=== PATIENT | male | born 1960 | race Caucasian/White ===

== ENCOUNTER 2023-01-23 10:31 | Outpatient (AMB) | payer BC, SELFPAY ==
--- OUTSIDE RECORDS SUMMARY | 2023-01-23 10:32 | XMS_ITS | Continuity of Care Document ---
Author Name Unknown Organization [facility] ter Address [address] [place] [id number]- Care Team Providers Care Grocery Specialist Name Role Phone Jenni Dixon Primary Care Physician [place] [facility] [place] - 06/22/[address] [address]- Discharge Disposition: A-D/C Walkout Attending Physician: Not on Staff, Attending MD Admitting Physician: Not on Staff, Admitting MD Referring Physician: Not on Staff, Referring MD Allergies, Adverse Reactions, Alerts Substance Reaction Severity Status Latex rash Persistent Moderate Active Lactose Active Immunizations Given and Recorded Vaccine Date Status Refusal Reason pneumococcal 23-valent vaccine 11/10/17 Given Medications atorvastatin 80 mg oral tablet 1 tablet = 80 mg, By Mouth, Daily at bedtime, # 30 tablet, 0 Refills, Maintenance, 07/01/21 15:29:00 EDT, Tablet, [facility], Partial fill upon patient request if the prescription is for a schedule II opioid drug., 180, cm, 07/01/21 15:1... Start Date: 07/01/21 Status: Ordered BuPROpion = 300 mg, By Mouth, Daily, 0 Refills, Maintenance, 06/30/21 10:50:00 EDT, Partial fill upon patientrequest if the prescription is for a schedule II opioid drug. Start Date: 06/30/21 Status: Ordered Colace sodium 100 mg oral capsule 100 mg, 1, capsule, By Mouth, 2 times a day, PRN, with plenty of water, # 60 capsule, Refills 1, Tot. Refills 1, Maintenance, for constipation, 03/01/18 12:40:55 EST, Print Requisition Start Date: 03/01/18 Status: Ordered cyanocobalamin 100 mcg oral tablet 100 mcg, 1, tablet, By Mouth, Daily, Refills 0, Maintenance, 08/28/19 15:56:00 EDT Start Date: 08/28/19 Status: Ordered dicyclomine 10 mg oral capsule 1 capsule = 10 mg, By Mouth, 3 times a day after meals, # 28 capsule, 0 Refills, Maintenance, 11/15/18 11:54:24 EDT, Capsule Start Date: 11/15/18 Stop Date: 11/22/18 Status: Ordered ferrous sulfate 325 mg oral enteric coated tablet 325 mg, 1, tablet, By Mouth, Daily, # 30 tablet, Refills 0, Tot. Refills 0, Maintenance, 07/01/21 15:34:00 EDT, Route to Pharmacy Electronically, [facility], Partial fill upon patient request if the prescription is for a schedule II opio... Start Date: 07/01/21 Status: Ordered folic acid 1 mg oral tablet 1 mg, 1, tablet, By Mouth, Daily, # 30 tablet, Refills 0, Tot. Refills 0, Maintenance, 11/17/17 10:03:25 EDT, Do Not Route Start Date: 11/17/17 Stop Date: 12/17/17 Status: Ordered Iron 100 Plus 1 tablet, By Mouth, Daily, 0 Refills, Maintenance, 02/27/18 13:06:45 EST Start Date: 02/27/18 Status: Ordered losartan 25 mg oral tablet 25 mg, 1, tablet, By Mouth, Daily, # 30 tablet, Refills 0, Tot. Refills 0, Maintenance, 07/01/21 15:29:00 EDT, Route to Pharmacy Electronically, [facility], Partial fill upon patient request if the prescription is for a schedule II opioi... Start Date: 07/01/21 Status: Ordered midodrine 2.5 mg oral tablet See Instructions, 1 tablet By Mouth 2 times a day after waking and 8 hours later in the afternoon. Do not lay down for any extended time with medication. If PM nap needed do no take second dose., # 60 tablet, Refills 0, Tot. Refills 0, Maintenance, 04... Start Date: 07/01/21 Status: Ordered nitroglycerin 0.3 mg/hr transdermal film, extended release 1 patch, Topically, Daily at bedtime, Remove upon waking, maintain a nitrate- free interval of 10 to12 hours, # 30 patch, 0 Refills, Maintenance, 07/01/21 15:33:00 EDT, Patch, [facility], Partial fill upon patient request if the prescrip... Start Date: 07/01/21 Status: Ordered Protonix 40 mg oral delayed release tablet 1 tablet = 40 mg, By Mouth, 2 times a day, # 60 tablet, 0 Refills, Maintenance, 11/17/17 10:03:35 EDT, EC Tablet Start Date: 11/17/17 Stop Date: 12/17/17 Status: Ordered rOPINIRole 1 mg oral tablet 1 tablet = 1 mg, By Mouth, Daily at bedtime, # 30 tablet, 0 Refills, Maintenance, 07/01/21 15:30:00EDT, Tablet, [facility], Partial fill upon patient request if the prescription is fora schedule II opioid drug., 180, cm, 07/01/21 15:10... Start Date: 07/01/21 Status: Ordered Problem List Condition Confirmation Course Effective Dates Status H ealth Status Informant Diverticulitis 1 Confirmed Active Inguinal hernia Confirmed Active Lactose intolerance Confirmed Active Obese class II Confirmed Active 1two episodes Vital Signs Most recent to oldest [Reference Range]: 1 2 3 Height 180 cm (06/22/22 10:29 AM) Oxygen Saturation [94-100 %] 97 % (06/22/22 2:01 PM) 100 % (06/22/22 11:53 AM) 98 % (06/22/22 9:59 AM) Pulse Rate [55-90 bpm] 86 bpm (06/22/22 2:01 PM) 88 bpm (06/22/22 11:53 AM) 96 bpm *H* (06/22/22 9:59 AM) Blood Pressure [90-138/55-84 mm Hg] 130/66mm Hg (06/22/22 2:01 PM) 111/65mm Hg (06/22/22 11:53 AM) 143/70mm Hg *H* (06/22/22 9:59 AM) Respiratory Rate [16-30 br/min] 16 br/min (06/22/22 2:01 PM) 16 br/min (06/22/22 11:53 AM) 18 br/min (06/22/22 9:59 AM) Temperature [96.8-100.4 DegF] 97.9 DegF (06/22/22 11:53 AM) 99.3 DegF (06/22/22 9:59 AM) Mode of Delivery (Oxygen) Room air (06/22/22 2:01 PM) Room air (06/22/22 11:53 AM) Room air (06/22/22 9:59 AM) Blood pressure sites Arm, left (06/22/22 2:01 PM) Arm, left (06/22/22 11:53 AM) Arm, left (06/22/22 9:59 AM) Temperature Route Oral (06/22/22 11:53 AM) Oral (06/22/22 9:59 AM) Social History Social History Type Response Smoking Status Never (less than 100 in lifetime) entered on: 02/27/18 Sex Patient Care team information Care Team Personnel Name: Lolita Stout RN Position: [facility] RN Member Role: Primary Care Nurse Name: Jazlyn Fu RN Position: [facility] SN RN Member Role: Primary Care Nurse Name: Hannah De La Vega RN Position: [facility] RN Member Role: Primary Care Nurse Name: Kate Muhammad RN Position: [facility] RN Member Role: Primary Care Nurse Name: Marie Sosa RN Position: [facility] RN Member Role: Primary Care Nurse Name: Courtney Sullivan RN Position: [facility] SN RN Member Role: Primary Care Nurse Name: Dora Salcedo RN Position: [facility] RN Member Role: Primary Care Nurse Name: Carolyn Brice RN Position: [facility] RN Member Role: Primary Care Nurse Name: Jenni Dixon Position: Reference Physician Member Role: PCP Address: Address: [address] [place] [address] Name: Karol Mary RN Position: [facility] Onco RN Member Role: Primary Care Nurse Name: Raven Clark RN Position: [facility] Hospital Director Treasurer Member Role: Primary Care Nurse Care Team Related Persons Name: LONNIE CASILLAS Address: home [address] [place] [address] Name: MARIE ADAIR Address: home [address] [place] [id number]
--- OUTSIDE RECORDS SUMMARY | 2023-01-23 10:32 | XMS_ITS | Continuity of Care Document ---
Author Name Unknown Organization [facility] ter Address [address] [place] [id number]- Care Team Providers Care Senior Dentist Name Role Phone Rosa TIM, Jenni Frausto Primary Care Physician Encounter [facility] [place] Date(s): 07/04/22 - 10/05/[address] [address] Attending Physician: Jd Valdez Jr, MD Admitting Physician: Jd Valdez Jr, MD Allergies, Adverse Reactions, Alerts Substance Reaction Severity Status Latex rash Persistent Moderate Active Lactose Active Immunizations Given and Recorded Vaccine Date Status Refusal Reason SARS-CoV-2 (COVID-19) mRNA-1273 vaccine 02/09/21 R ecorded SARS-CoV-2 (COVID-19) mRNA-1273 vaccine 08/03/20 R ecorded SARS-CoV-2 (COVID-19) mRNA-1273 vaccine 07/06/20 R ecorded pneumococcal 23-valent vaccine 11/10/17 Given Medications BuPROpion = 300 mg, By Mouth, Daily, 0 Refills, Maintenance, 06/30/21 10:50:00 EDT, Partial fill upon patientrequest if the prescription is for a schedule II opioid drug. Start Date: 06/30/21 Status: Ordered Carafate 1 gm oral tablet 2 Gm, 2, tablet, By Mouth, 3 times a day before meals and bedtime, # 240 tablet, Refills 0, Tot. Refills 0, Maintenance, 07/06/22 13:18:00 EDT, Do Not Route, Partial fill upon patient request if the prescription is for a schedule II opioid drug. Start Date: 07/06/22 Stop Date: 08/05/22 Status: Ordered ferrous sulfate 325 mg oral enteric coated tablet 325 mg, 1, tablet, By Mouth, Daily, # 30 tablet, Refills 0, Tot. Refills 0, Maintenance, 07/01/21 15:34:00 EDT, Route to Pharmacy Electronically, [facility], Partial fill upon patient [...] 13:06:45 EST Start Date: 02/27/18 Status: Ordered lactulose 10 gm/15 ml oral syrup 30 mL = 20 Gm, By Mouth, 2 times a day, Hold if loose bowel movement more than 3 times and resume next day, 0 Refills, Maintenance, 07/06/22 13:04:00 EDT, Syrup, Partial fill upon patient request if the prescription is for a schedule II opioid drug. Start Date: 07/06/22 Status: Ordered Lasix 20 mg oral tablet 1, capsule, By Mouth, 2 times a day, # 60 capsule, Refills 0, Tot. Refills 0, Soft Stop, 07/06/22 13:10:00 EDT, Do Not Route, Partial fill upon patient request if the prescription is for a schedule II opioid drug. Start Date: 07/06/22 Stop Date: 08/05/22 Status: Ordered nitroglycerin 0.3 mg/hr transdermal film, extended release 1 patch, Topically, Daily at bedtime, Remove upon waking, maintain a nitrate- free interval of 10 to12 hours, # 30 patch, 0 Refills, Maintenance, 07/01/21 15:33:00 EDT, Patch, [facility], Partial fill upon patient request if the prescrip... Start Date: 07/01/21 Status: Ordered Phos-NaK Oral Powder 1 pack/packet, By Mouth, 2 times a day, 0 Refills, Maintenance, 07/06/22 13:03:00 EDT, Oral Powder,Partial fill upon patient request if the prescription is for a schedule II opioid drug. Start Date: 07/06/22 Stop Date: 07/09/22 Status: Ordered Protonix 40 mg oral delayed release tablet 1 tablet = 40 mg, By Mouth, 2 times a day, # 60 tablet, 0 Refills, Maintenance, 11/17/17 10:03:35 EDT, EC Tablet Start Date: 11/17/17 Stop Date: 12/17/17 Status: Ordered rifAXIMin 550 mg oral tablet 1 tablet = 550 mg, By Mouth, 2 times a day, 0 Refills, Maintenance, 07/06/22 13:03:00 EDT, Tablet, Partial fill upon patient request if the prescription is for a schedule II opioid drug. Start Date: 07/06/22 Stop Date: 07/13/22 Status: Ordered rOPINIRole 1 mg oral tablet 1 tablet = 1 mg, By Mouth, Daily at bedtime, # 30 tablet, 0 Refills, Maintenance, 07/01/21 15:30:00EDT, Tablet, [facility], Partial fill upon patient request if the prescription is fora schedule II opioid drug., 180, cm, 07/01/21 15:10... Start Date: 07/01/21 Status: Ordered spironolactone 25 mg oral tablet 50 mg, 2, tablet, By Mouth, Daily, Refills 0, Maintenance, 07/06/22 13:03:00 EDT, Partial fill uponpatient request if the prescription is for a schedule II opioid drug. Start Date: 07/06/22 Status: Ordered thiamine 100 mg oral tablet 100 mg, 1, tablet, By Mouth, Daily, Refills 0, Maintenance, 07/06/22 13:05:00 EDT, Partial fill upon patient request if the prescription is for a schedule II opioid drug. Start Date: 07/06/22 Stop Date: 07/20/22 Status: Ordered Problem List Condition Confirmation Course Effective Dates Status H ealth Status Informant Diverticulitis 1 Confirmed Active Inguinal hernia Confirmed Active Lactose intolerance Confirmed Active Obese class II Confirmed Active 1two episodes Social History Social History Type Response Smoking Status Never (less than 100 in lifetime) entered on: 02/27/18 Sex Patient Care team information Care Team Personnel Name: Lolita Stout RN Position: [facility] RN Member Role: Primary Care Nurse Name: Jazlyn Fu RN Position: [facility] SN RN Member Role: Primary Care Nurse Name: Hannah De La Vega RN Position: [facility] RN Member Role: Primary Care Nurse Name: Kalpana Ferrara RN Position: [facility] RN Member Role: Primary Care Nurse Name: Kate Muhammad RN Position: [facility] RN Member Role: Primary Care Nurse Name: Enoch Garg RN Position: [facility] RN Member Role: Primary Care Nurse Name: Rima López RN Position: [facility] RN Member Role: Primary Care Nurse Name: Brigid Goss RN Position: [facility] RN Member Role: Primary Care Nurse Name: Ashley Kebede RN Position: [facility] RN Member Role: Primary Care Nurse Name: Courtney Sullivan RN Position: [facility] SN RN Member Role: Primary Care Nurse Name: Wilfrido Fraga RN Position: [facility] RN Member Role: Primary Care Nurse Name: Dora Salcedo RN Position: [facility] RN Member Role: Primary Care Nurse Name: Carolyn Brice RN Position: [facility] RN Member Role: Primary Care Nurse Name: Darlin Geller RN Position: [facility] RN Member Role: Primary Care Nurse Name: Jenni Dixon Position: Reference Physician Member Role: PCP Address: Address: [address] [place] [id number]- Name: Kaorl Mary RN Position: [facility] Onco RN Member Role: Primary Care Nurse Name: Raven Clark RN Position: [facility] Procurement Forester Member Role: Primary Care Nurse Care Team Related Persons Name: LONNIE CASILLAS Address: home [address] [place] [address] Name: ENOCH ADAIR Address: [address] [place] [address]
--- OUTSIDE RECORDS SUMMARY | 2023-01-23 10:32 | XMS_ITS | Continuity of Care Document ---
Author Name Unknown Organization [facility] ter Address [address] [place] [id number]- Care Team Providers Care Embedded Developer Name Role Phone Sreekanth DOUGLASS, Mando Camargo Primary Care Physician Encounter [place] Date(s): 04/28/19 - 04/28/[address] [address]- [facility] Attending Physician: Bruce Wills MD Allergies, Adverse Reactions, Alerts Substance Reaction Severity Status Latex rash Persistent Moderate Active Immunizations Given and Recorded Vaccine Date Status Refusal Reason pneumococcal 23-valent vaccine 11/10/17 Given Medications B 100 Complex 1 tablet, By Mouth, Daily, 0 Refills, Maintenance, 02/27/18 13:06:41 EST Start Date: 02/27/18 Status: Ordered B-12 0 Refills, Maintenance, 02/27/18 13:06:52 EST Start Date: 02/27/18 Status: Ordered calcium (as carbonate) 500 mg oral tablet, chewable 1 tablet = 500 mg, Daily, 0 Refills, Maintenance, 02/27/18 13:07:06 EST Start Date: 02/27/18 Status: Ordered Colace sodium 100 mg oral capsule 100 mg, 1, capsule, By Mouth, 2 times a day, PRN, with plenty of water, # 60 capsule, Refills 1, Tot. Refills 1, Maintenance, for constipation, 03/01/18 12:40:55 EST, Print Requisition Start Date: 03/01/18 Status: Ordered dicyclomine 10 mg oral capsule 1 capsule = 10 mg, By Mouth, 3 times a day after meals, # 28 capsule, 0 Refills, Maintenance, 11/15/18 11:54:24 EDT, Capsule Start Date: 8/23/19 Stop Date: 11/22/18 Status: Ordered folic acid 1 mg oral tablet 1 mg, 1, tablet, By Mouth, Daily, # 30 tablet, Refills 0, Tot. Refills 0, Maintenance, 11/17/17 10:03:25 EDT, Do Not Route Start Date: 11/17/17 Stop Date: 12/17/17 Status: Ordered Iron 100 Plus 1 tablet, By Mouth, Daily, 0 Refills, Maintenance, 02/27/18 13:06:45 EST Start Date: 02/27/18 Status: Ordered multivitamin Multiple Vitamins oral tablet 1 tablet, By Mouth, Daily, # 30 tablet, 0 Refills, Maintenance, 11/17/17 10:03:32 EDT, Tablet Start Date: 11/17/17 Stop Date: 12/17/17 Status: Ordered Protonix 40 mg oral delayed release tablet 1 tablet = 40 mg, By Mouth, 2 times a day, # 60 tablet, 0 Refills, Maintenance, 11/17/17 10:03:35 EDT, EC Tablet Start Date: 11/17/17 Stop Date: 12/17/17 Status: Ordered Sertraline = 100 mg, By Mouth, Daily, 0 Refills, Maintenance, 02/27/18 13:06:20 EST Start Date: 02/27/18 Status: Ordered Problem List Condition Effective Dates Status Health Status Inform ant Diverticulitis(Confirmed) 1 Active Inguinal hernia(Confirmed) Active Lactose intolerance(Confirmed) Active 1two episodes Social History Social History Type Response Smoking Status Never (less than 100 in lifetime) entered on: 02/27/18 Sex
--- OUTSIDE RECORDS SUMMARY | 2023-01-23 10:32 | XMS_ITS | Continuity of Care Document ---
Author Name Unknown Organization [facility] ter Address [address] [place] [id number]- Care Team Providers Care Power And Recovery Superintendent Name Role Phone Brianna DOUGLASS, Emilie Otoole Primary Care Physician [place] [facility] [place](s[place] 08/26/19 - 08/28/[address] [address]- [place] Encounter Diagnosis Compression fracture of vertebra(Final) - 08/26/19 Discharge Disposition: A-D/C Home Attending Physician: Clifton Foreman MD Admitting Physician: Lorena Melgar MD Referring Physician: Not on Staff, Referring MD Allergies, Adverse Reactions, Alerts Substance Reaction Severity Status Latex rash Persistent Moderate Active Immunizations Given and Recorded Vaccine Date Status Refusal Reason pneumococcal 23-valent vaccine 11/10/17 Given Medications calcium (as carbonate) 500 mg oral tablet, [...] Date: 11/15/18 Stop Date: 11/22/18 Status: Ordered folic acid 1 mg oral tablet 1 mg, 1, tablet, By Mouth, Daily, # 30 tablet, Refills 0, Tot. Refills 0, Maintenance, 11/17/17 10:03:25 EDT, Do Not Route Start Date: 11/17/17 Stop Date: 12/17/17 Status: Ordered Iron 100 Plus 1 tablet, By Mouth, Daily, 0 Refills, Maintenance, 02/27/18 13:06:45 EST Start Date: 02/27/18 Status: Ordered Protonix 40 mg oral delayed release tablet 1 tablet = 40 mg, By Mouth, 2 times a day, # 60 tablet, 0 Refills, Maintenance, 11/17/17 10:03:35 EDT, EC Tablet Start Date: 11/17/17 Stop Date: 12/17/17 Status: Ordered Sertraline = 100 mg, By Mouth, Daily, 0 Refills, Maintenance, 02/27/18 13:06:20 EST Start Date: 02/27/18 Status: Ordered Vitamin D [address]35[address] iu oral capsule 50,000 International_Units, 1, capsule, By Mouth, Every week, # 12 capsule, Refills 0, Tot. Refills0, Maintenance, 08/28/19 15:57:00 EDT, Route to Pharmacy Electronically, [id number], 180.3,cm, 08/28/19 15:15:00 EDT, Height, 108.18, kg, 06/0... Start Date: 08/28/19 Stop Date: 11/20/19 Status: Ordered Problem List Condition Effective Dates Status Health Status Inform ant Diverticulitis(Confirmed) 1 Active Inguinal hernia(Confirmed) Active Lactose intolerance(Confirmed) Active 1two episodes Results Radiology Reports * Exam Date Time Procedure Performing Provider Status 08/26/19 6:25 PM Hand Min 3 Views Right Justin Conrad (Verified) Notes: (Hand Min 3 Views Right) Reason For Exam: Post-Reduction RESULT: Hand Min 3 Views Right Hand Min 3 Views Right INDICATION: Reason: Post-Reduction; Clinical Question(s): Dislocation; Hx of Present Illness: ? fx 4th finger right hand; Other Objective Findings: Pt fell 2 days ago and injured his 4th finger righthand. Finger is swollen, bruised, c o numbness tip of finger fell 2 days ago and injured his 4th finger right hand. Finger is swollen, bruised, c o numbness tip of finger par } COMPARISON: Plain film of the right hand from this afternoon 3:44 PM FINDINGS: Overlying wrapping material obscures bony detail. There is now probably normal alignment at the fourth finger proximal interphalangeal joint. No fracture is seen. IMPRESSION: Probable successful reduction of the fourth finger proximal interphalangeal joint. Limited evaluation as explained above. WSN: [id number] Ordering Physician: Kaila Riddle Dictated By: Ranjana Egan MD Dictated Date/Time: 08/26/19 6:32 pm Reviewed By: Ranjana Egan MD Signed By: Ranjana Egan MD Signed Date/Time: 08/26/19 6:32 pm Transcribed By: RHYS Transcribed Date/Time: 08/26/19 6:28 pm * Exam Date Time Procedure Performing Provider Status 08/26/19 6:25 PM Elbow Min 3 Views Right Gisel Conrad en; Auth (Verified) Notes: (Elbow Min 3 Views Right) Reason For Exam: Pain RESULT: Elbow Min 3 Views Right Elbow Min 3 Views Right INDICATION: Reason: Pain; Clinical Question(s): Fracture; Hx of Present Illness: ? fx 4th finger right hand; Other Objective Findings: Pt fell 2 days ago and injured his 4th finger right hand. Fingeris swollen, bruised, c o numbness tip of finger fell 2 days ago and injured his 4th finger right hand. Finger is swollen, bruised, c o numbness tip of finger par } COMPARISON: None. FINDINGS: Unremarkable soft tissue. There is no fracture or subluxation. The joint space is maintained. There is degenerative osteophyte at the olecranon triceps tendon insertion site. IMPRESSION: No acute finding. WSN: [id number] Ordering Physician: Kelsie Otero Dictated By: Ranjana Egan MD Dictated Date/Time: 08/26/19 6:28 pm Reviewed By: Ranjana Egan MD Signed By: Ranjana Egan MD Signed Date/Time: 08/26/19 6:28 pm Transcribed By: RHYS Transcribed Date/Time: 08/26/19 6:27 pm * Exam Date Time Procedure Performing Provider Status 08/26/19 3:46 PM Hand Min 3 Views Right Sima Pillai; Anna (Verified) Notes: (Hand Min 3 Views Right) Reason For Exam: with Pain;Trauma RESULT: Hand Min 3 Views Right Hand Min 3 Views Right INDICATION: Status post fall, injuring right fourth finger, which is small swelling, bruise, and numbness at the tip. COMPARISON: None. FINDINGS: Complete dorsal dislocation of proximal fourth interphalangeal joint, with overlap of proximal and middle phalanges by 0.8 cm. This is surrounded by soft tissue swelling. No fractures or bone lesions. No major arthritic changes. IMPRESSION: Complete dorsal dislocation of proximal fourth interphalangeal joint with overlap of proximal and middle phalanges by 0.8 cm. No fracture. Sent preliminary reports to MEETA Hernandez, at 3:54 PM on 08/26/2019. I have personally reviewed the images and I agree with this report. WSN: [id number] Ordering Physician: Susan Perez Dictated By: Shabbir Beltran DO Dictated Date/Time: 08/26/19 4:00 pm Reviewed By: Tomy Ray MD Signed By: Tomy Ray MD Signed Date/Time: 08/26/19 4:05 pm Transcribed By: RHYS Transcribed Date/Time: 08/26/19 3:54 pm Vital Signs Most recent to oldest [Reference Range]: 1 2 3 Height 180.3 cm (08/28/19 4:27 PM) 180.3 cm (08/28/19 3:15 PM) 180.3 cm (08/28/19 10:41 AM) Weight 108.18 kg (08/26/19 11:02 PM) Oxygen Saturation [94-100 %] 95 % (08/28/19 3:15 PM) 96 % (08/28/19 10:41 AM) 95 % (08/28/19 7:57 AM) Pulse Rate [55-90 bpm] 59 bpm (08/28/19 4:27 PM) 60 bpm (08/28/19 3:15 PM) 64 bpm (08/28/19 10:41 AM) Body Mass Index [18.5-24.99] 33.28 *>HHI* (08/26/19 11:02 PM) Blood Pressure [90-138/55-84 mm Hg] 142/79mm Hg *H* (08/28/19 4:27 PM) 160/79mm Hg *H* (08/28/19 3:15 PM) 154/79mm Hg *H* (08/28/19 10:41 AM) Respiratory Rate [16-30 br/min] 20 br/min (08/28/19 3:15 PM) 20 br/min (08/28/19 10:41 AM) 17 br/min (08/28/19 9:10 AM) Temperature [96.8-100.4 DegF] 98.8 DegF (08/28/19 3:15 PM) 98.5 DegF (08/28/19 10:41 AM) 98.1 DegF (08/28/19 7:57 AM) Mode of Delivery (Oxygen) Room air (08/28/19 3:15 PM) Room air (08/28/19 10:41 AM) Room air (08/28/19 7:57 AM) Blood pressure sites Arm, right (08/28/19 3:15 PM) Arm, right (08/28/19 10:41 AM) Arm, right (08/28/19 7:57 AM) Temperature Route Oral (08/28/19 3:15 PM) Oral (08/28/19 10:41 AM) Oral (08/28/19 7:57 AM) Dry Weight 108.18 kg (08/26/19 11:02 PM) Weight Obtained Via Patient/family state d (08/26/19 11:02 PM) Dry Weight Obtained Via Patient/family s tated (08/26/19 11:02 PM) Social History Social History Type Response Smoking Status Never (less than 100 in lifetime) entered on: 02/27/18 Sex
--- OUTSIDE RECORDS SUMMARY | 2023-01-23 10:33 | XMS_ITS | Continuity of Care Document ---
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 Start Date: 11/28/22 Status: Ordered Aspirin Low Dose 81 mg oral tablet, chewable 1 tablet = 81 mg, By Mouth, Daily, 0 Refills, Maintenance, 11/27/22 19:13:00 EDT, Partial fill uponpatient request if the prescription is for a schedule II opioid drug. Start Date: 11/27/22 Status: Ordered Daily Ian oral tablet 1 tablet, By Mouth, Daily, # 30 tablet, 0 Refills, Maintenance, 11/27/22 19:13:00 EDT, Tablet, Partial fill upon patient request if the prescription is for a schedule II opioid drug. Start Date: 11/27/22 Status: Ordered docusate sodium 100 mg oral capsule 1 capsule = 100 mg, By Mouth, 2 times a day, PRN as needed for constipation, # 20 capsule, 0 Refills, Maintenance, 11/27/22 19:23:00 EDT, Capsule, Partial fill upon patient request if the prescription is for a schedule II opioid drug. Start Date: 11/27/22 Status: Ordered ergocalciferol 19362 iu oral capsule 50,000 International_[employer]its, 1, capsule, By Mouth, Every week, on Mondays, Refills 0, Maintenance, 11/27/22 19:13:00 EDT, Partial fill upon patient request if the prescription is for a schedule II opioid drug. Start Date: 11/27/22 Status: Ordered gabapentin 300 mg oral capsule 300 mg, 1, capsule, By Mouth, 3 times a day, # 90 capsule, Refills 5, Maintenance, 11/27/22 19:13:00 EDT, Partial fill upon patient request if the prescription is for a schedule II opioid drug. Start Date: 11/27/22 Status: Ordered lidocaine 5% topical film 2 patch, Topically, Daily, PRN Pain , Mild, remove after 12 hours, # 13 each, 0 Refills, Maintenance, 11/28/22 9:45:00 EDT, Film, Partial fill upon patient request if the prescription is for a schedule II opioid drug. Start Date: 11/28/22 Status: Ordered Lokelma 10 g oral powder for reconstitution 1 pack/packet, By Mouth, Every Sunday, Sunday and Sunday, do not take within 2 hours of other medications, # 12 tablet, 0 Refills, Maintenance, 11/28/22 13:55:00 EDT, REC Powder, [facility]/pharmacy #[id number], Partial fill upon patient request if the prescrip... Start Date: 11/28/22 Status: Ordered methocarbamol 750 mg oral tablet 1 tablet = 750 mg, By Mouth, 4 times a day, 0 Refills, Maintenance, 11/27/22 19:13:00 EDT, Partial fill upon patient request if the prescription is for a schedule II opioid drug. Start Date: 11/27/22 Status: Ordered mycophenolate mofetil 250 mg oral capsule 2 capsule = 500 mg, By Mouth, 2 times a day, 0 Refills, Maintenance, 11/27/22 19:20:00 EDT, Capsule, Partial fill upon patient request if the prescription is for a schedule II opioid drug. Start Date: 11/27/22 Status: Ordered nystatin 819112 u/ml oral suspension 5 mL = 500,000 units, By Mouth, 4 times a day, 0 Refills, Maintenance, 11/27/22 19:24:00 EDT, Partial fill upon patient request if the prescription is for a schedule II opioid drug. Start Date: 11/27/22 Status: Ordered oxyCODONE 5 mg oral tablet 5 mg, 1, tablet, By Mouth, Every 6 hours, PRN, Refills 0, Tot. Refills 0, Maintenance, as needed for pain, 11/28/22 10:08:00 EDT, Partial fill upon patient request if the prescription is for a schedule II opioid drug. Start Date: 11/28/22 Status: Ordered pantoprazole 40 mg oral delayed release tablet 1 tablet = 40 mg, By Mouth, Daily, 0 Refills, Maintenance, 11/27/22 19:21:00 EDT Start Date: 11/27/22 Status: Ordered polyethylene glycol 3350 oral powder for reconstitution = 17 Gm, By Mouth, Daily, dissolve in water before taking, # 255 Gm, 0 Refills, Maintenance, 11/27/22 19:21:00 EDT, REC Powder, Partial fill upon patient request if the prescription is for a scheduleII opioid drug. Start Date: 11/27/22 Status: Ordered predniSONE 5 mg oral tablet 3 tablet = 15 mg, By Mouth, Daily, 0 Refills, Maintenance, 11/27/22 19:21:00 EDT, Partial fill uponpatient request if the prescription is for a schedule II opioid drug. Start Date: 11/27/22 Status: Ordered Senna 8.6 mg oral tablet 8.6 mg, 1, tablet, By Mouth, Daily at bedtime, Refills 0, Maintenance, 11/27/22 19:24:00 EDT, Partial fill upon patient request if the prescription is for a schedule II opioid drug. Start Date: 11/27/22 Status: Ordered sodium bicarbonate 650 mg oral tablet 1 tablet = 650 mg, By Mouth, 3 times a day, for 30 days, # 90 tablet, 0 Refills, Acute 12/28/22 13:55:00 EDT, 11/28/22 13:55:00 EDT, Tablet, [facility]/pharmacy #[id number], Partial fill upon patient request if the prescription is for a schedule II opioid drug., 1... Start Date: 11/28/22 Stop Date: 12/28/22 Status: Ordered sodium polystyrene sulfonate oral and rectal powder PLEASE TAKE TWO DOSES OF KAYEXELATE 30 GRAMS BY MOUTH 4 HOURS APART. Start Date: 11/27/22 Status: Ordered sulfamethoxazole-trimethoprim 400 mg-80 mg oral tablet 1 tablet, By Mouth, Every Sunday, Sunday and Sunday, 0 Refills, Maintenance, 11/28/22 9:45:00 EDT, Partial fill upon patient request if the prescription is for a schedule II opioid drug. Start Date: 11/28/22 Status: Ordered tacrolimus 1 mg oral capsule 6 capsule = 6 mg, By Mouth, Every 12 hours, 0 Refills, Maintenance, 11/27/22 19:15:00 EDT, Partial fill upon patient request if the prescription is for a schedule II opioid drug. Start Date: 11/27/22 Status: Ordered tamsulosin 0.4 mg oral capsule 0.4 mg, 1, capsule, By Mouth, Daily, # 30 capsule, Refills 0, Maintenance, 11/27/22 19:15:00 EDT, Partial fill upon patient request if the prescription is for a schedule II opioid drug. Start Date: 11/27/22 Status: Ordered Valcyte 450 mg oral tablet 450 mg, 1, tablet, By Mouth, Daily, # 30 tablet, Refills 0, Maintenance, 11/28/22 10:05:00 EDT, Partial fill upon patient request if the prescription is for a schedule II opioid drug. Start Date: 11/28/22 Status: Ordered Problem List Condition Confirmation Course Effective Dates Status H ealth Status Informant Diverticulitis 1 Confirmed Active Inguinal hernia Confirmed Active Lactose intolerance Confirmed Active Obese class II Confirmed Active 1two episodes Social History Social History Type Response Smoking Status Never (less than 100 in lifetime) entered on: 02/27/18 Sex Patient Care team information Care Team Personnel Name: Lolita Stout RN Position: S RN Member Role: Primary Care Nurse Name: Jazlyn Fu RN Position: [facility] SN RN Member Role: Primary Care Nurse Name: Hannah De La Vega RN Position: [facility] RN Member Role: Primary Care Nurse Name: Kalpana Ferrara RN Position: [facility] RN Member Role: Primary Care Nurse Name: Kate Muhammad RN Position: [facility] RN Member Role: Primary Care Nurse Name: Enoch Garg RN Position: [facility] RN Member Role: Primary Care Nurse Name: Rima López RN Position: [facility] RN Member Role: Primary Care Nurse Name: Ashley Kebede RN Position: [facility] RN Member Role: Primary Care Nurse Name: Courtney Sullivan RN Position: [facility] SN RN Member Role: Primary Care Nurse Name: Wilfrido Fraga RN Position: [facility] RN Member Role: Primary Care Nurse Name: Dora Salcedo RN Position: [facility] RN Member Role: Primary Care Nurse Name: Hermann Thorne MD Position: [facility] Renal MD Member Role: Lifetime Consulting Physician Address: Address: [address] [facility], [place] [address]- Name: Carolyn Brice RN Position: [facility] RN Member Role: Primary Care Nurse Name: Darlin Geller RN Position: [facility] RN Member Role: Primary Care Nurse Name: Jenni Dixon Position: Reference Physician Member Role: PCP Address: Address: [address] [place] [address]- Name: Karol Mary RN Position: [facility] Onco RN Member Role: Primary Care Nurse Name: Raven Clark RN Position: [facility] Hospital Designer Architect Member Role: Primary Care Nurse Care Team Related Persons Name: LONNIE CASILLAS Address: [address] [place] [address] Name: ENOCH ADAIR Address: [address] [place] [address]
--- OUTSIDE RECORDS SUMMARY | 2023-01-23 10:33 | XMS_ITS | Continuity of Care Document ---
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 Role Phone Rosa TIM, Jenni Frausto Primary Care Physician Encounter [facility] [place] Date(s): 06/23/22 - 07/07/[address] [address]- Encounter Diagnosis Abdominal pain(Final) - 06/23/22 GI bleed(Final) - 06/23/22 Alcoholic liver disease(Final) - 06/23/22 Discharge Disposition: A-Transfer SNF Attending Physician: Francois DOUGLASS, Fabian Admitting Physician: Colin Singh MD Referring Physician: Not on Staff, Referring [...] Date: 07/06/22 Stop Date: 08/05/22 Status: Ordered cefpodoxime 200 mg oral tablet 1 tablet = 200 mg, By Mouth, Every 12 hours, for 5 days, # 10 tablet, 0 Refills, Acute 07/11/22 13:05:00 EDT, 07/06/22 13:05:00 EDT, Tablet, Partial fill upon patient request if the prescription is for a schedule II opioid drug. Start Date: 07/06/22 Stop Date: 07/11/22 Status: Ordered ferrous sulfate 325 mg oral enteric coated tablet 325 mg, 1, tablet, By Mouth, Daily, # 30 tablet, Refills 0, Tot. Refills 0, Maintenance, 07/01/21 15:34:00 EDT, Route to Pharmacy Electronically, [facility], Partial fill upon patient request if [...] 0 Refills, Maintenance, 07/01/21 15:33:00 EDT, Patch, [facility], Partial fill upon patient request [...] tablet, 0 Refills, Maintenance, 07/01/21 15:30:00EDT, Tablet, [facility] 3, Partial fill upon patient request if [...] Obese class II Confirmed Active 1two episodes Results Orders for Microbiology Reports Name Date Blood Culture 07/04/22 Blood Culture #2 07/04/22 Urine Culture 06/26/22 Microbiology Reports TEST:Blood Culture STATUS:Unauthenticated BODY SITE: SOURCE:Blood COLLECTED DATE/TIME:07/04/22 10:50 PM Blood Culture SPECIMEN DESCRIPTION : BLOOD RIGHT SPECIAL REQUESTS : NONE CULTURE : NO GROWTH AFTER 48 HOURS REPORT STATUS : PRELIMINARY REPORT TEST:Blood Culture, Second Order STATUS:Unauthenticated BODY SITE: SOURCE:Blood COLLECTED DATE/TIME:07/04/22 10:50 PM Blood Culture, Second Order SPECIMEN DESCRIPTION : BLOOD LEFT SPECIAL REQUESTS : NONE CULTURE : NO GROWTH AFTER 48 HOURS REPORT STATUS : PRELIMINARY REPORT TEST:Urine Culture STATUS:Auth (Verified) BODY SITE: SOURCE:URINE COLLECTED DATE/TIME:06/26/22 2:50 PM Urine Culture SPECIMEN DESCRIPTION : URINE CLEAN CATCH/MIDSTREAM SPECIAL REQUESTS : NONE CULTURE : NO GROWTH REPORT STATUS : FINAL 06/27/2022 Radiology Reports * Exam Date Time Procedure Performing Provider Status 07/04/22 11:[address] Abdomen and Pelvi s W/O Contrast Jesus Carmona; Auth (Verified) Notes: (CT Abdomen and Pelvis W/O Contrast) Reason For Exam: Fever RESULT: CT Abdomen and Pelvis W/O Contrast CT Chest W/O Contrast, CT Abdomen and Pelvis W/O Contrast INDICATION: Respiratory illness. TECHNIQUE: Helical CT scan of the chest, abdomen, and pelvis without IV contrast, formatted in 3 planes. This study was performed oral contrast. Weight- based protocol was performed using automatic exposure control. CTDIvol Body: 22.10 mGy, DLP Body: 1691 mGy*cm. COMPARISON: CT abdomen/pelvis 06/23/2022. Correlation made with same-day chest radiograph. FINDINGS: Fire Manager view findings, lines and tubes: None. Trachea and airways: Patent without evidence of tracheal or endobronchial lesion. Lungs and pleura: Motion degradation. Small bilateral pleural effusions, right greater than left with associated mild bibasilar atelectasis. Mediastinum and kevin: No mass or hematoma. No mediastinal or hilar lymphadenopathy. No esophageal abnormality. Normal thyroid. Heart: Heart is normal in size. No pericardial effusion. Moderate coronary artery calcification. Aorta: Mild vascular calcification but no aneurysm. Pulmonary arteries: Normal caliber. Chest wall soft tissues: No acute abnormality. Diaphragm: Intact. Liver: Diffuse low-attenuation throughout the liver parenchyma consistent with hepatic steatosis. No evidence of a suspicious lesion. Gallbladder: Absent consistent with prior cholecystectomy. Bile ducts: Unchanged mildly dilated common bile duct, likely due to prior cholecystectomy. Spleen: Spleen is enlarged measuring up to 15.5 cm (image 94 series 201). Pancreas: No suspicious lesion or ductal dilatation. Adrenal glands: No nodule. Kidneys and ureters: No hydronephrosis, stone, or suspicious lesion. Unchanged bilateral focal renal cortical thinning, consistent with scarring. Bladder: Decompressed, limiting evaluation. Reproductive organs: Unremarkable. Peritoneum and retroperitoneum: Mild perihepatic and perisplenic ascites as well as mild ascites inthe right lower abdomen. No omental or mesenteric lesions. No significant change elongated hypodense lesion with peripheral calcifications measuring up to 6.8 cm Lymph nodes: No enlarged lymph nodes. Blood vessels: Mild vascular calcifications but no aneurysm. Abdominal and pelvic wall soft tissues: Bilateral fat-containing inguinal hernias. Bones: Mild degenerative changes of the spine with chronic appearing compression fracture of T12 and L1. Multiple old right-sided rib fractures. IMPRESSION: 1. Small bilateral pleural effusions, right greater than left with associated atelectasis. 2. Cirrhotic morphology of the liver with evidence of portal hypertension. Small volume ascites surrounding the liver, spleen, and within the right lower quadrant of the abdomen. 3. Mild splenomegaly. I have personally reviewed the images and I agree with this report. WSN: [id number] Ordering Physician: Fely Cook Dictated By: Felipe Bowman MD Dictated Date/Time: 07/05/22 8:16 am Reviewed By: Cristy Deluna MD Signed By: Cristy Deluna MD Signed Date/Time: 07/05/22 8:21 am Transcribed By: RHYS Transcribed Date/Time: 07/05/22 0:35 am * Exam Date Time Procedure Performing Provider Status 07/04/22 11:[address] Chest W/O Contrast Harris Carmonag; Auth (Verified) Notes: (CT Chest W/O Contrast) Reason For Exam: Respiratory illness, nondiagnostic xray;Other: RESULT: CT Chest W/O Contrast CT Chest W/O Contrast, CT Abdomen and Pelvis W/O Contrast INDICATION: Respiratory illness. TECHNIQUE: Helical CT scan of the chest, abdomen, and pelvis without IV contrast, formatted in 3 planes. This study was performed oral contrast. Weight- based protocol was performed using automatic exposure control. CTDIvol Body: 22.10 mGy, DLP Body: 1691 mGy*cm. COMPARISON: CT abdomen/pelvis 06/23/2022. Correlation made with same-day chest radiograph. FINDINGS: Fire Manager view findings, lines and tubes: None. Trachea and airways: Patent without evidence of tracheal or endobronchial lesion. Lungs and pleura: Motion degradation. Small bilateral pleural effusions, right greater than left with associated mild bibasilar atelectasis. Mediastinum and kevin: No mass or hematoma. No mediastinal or hilar lymphadenopathy. No esophageal abnormality. Normal thyroid. Heart: Heart is normal in size. No pericardial effusion. Moderate coronary artery calcification. Aorta: Mild vascular calcification but no aneurysm. Pulmonary arteries: Normal caliber. Chest wall soft tissues: No acute abnormality. Diaphragm: Intact. Liver: Diffuse low-attenuation throughout the liver parenchyma consistent with hepatic steatosis. No evidence of a suspicious lesion. Gallbladder: Absent consistent with prior cholecystectomy. Bile ducts: Unchanged mildly dilated common bile duct, likely due to prior cholecystectomy. Spleen: Spleen is enlarged measuring up to 15.5 cm (image 94 series 201). Pancreas: No suspicious lesion or ductal dilatation. Adrenal glands: No nodule. Kidneys and ureters: No hydronephrosis, stone, or suspicious lesion. Unchanged bilateral focal renal cortical thinning, consistent with scarring. Bladder: Decompressed, limiting evaluation. Reproductive organs: Unremarkable. Peritoneum and retroperitoneum: Mild perihepatic and perisplenic ascites as well as mild ascites inthe right lower abdomen. No omental or mesenteric lesions. No significant change elongated hypodense lesion with peripheral calcifications measuring up to 6.8 cm Lymph nodes: No enlarged lymph nodes. Blood vessels: Mild vascular calcifications but no aneurysm. Abdominal and pelvic wall soft tissues: Bilateral fat-containing inguinal hernias. Bones: Mild degenerative changes of the spine with chronic appearing compression fracture of T12 and L1. Multiple old right-sided rib fractures. IMPRESSION: 1. Small bilateral pleural effusions, right greater than left with associated atelectasis. 2. Cirrhotic morphology of the liver with evidence of portal hypertension. Small volume ascites surrounding the liver, spleen, and within the right lower quadrant of the abdomen. 3. Mild splenomegaly. I have personally reviewed the images and I agree with this report. WSN: [id number] Ordering Physician: Fely Cook Dictated By: Felipe Bowman MD Dictated Date/Time: 07/05/22 8:16 am Reviewed By: Cristy Deluna MD Signed By: Cristy Deluna MD Signed Date/Time: 07/05/22 8:21 am Transcribed By: RHYS Transcribed Date/Time: 07/05/22 0:35 am * Exam Date Time Procedure Performing Provider Status 07/04/22 8:08 PM Chest Portable Christiansen , Jd; Auth (Nikky ified) Notes: (Chest Portable) Reason For Exam: Fever/Increased White Count RESULT: Chest Portable Chest Portable Reason: Fever Increased White Count; Clinical Question(s): Pneumonia COMPARISON: 06/23/2022 FINDINGS: Suboptimal exam due to patient rotation on the lung volumes. LINES AND TUBES: None. LUNGS AND PLEURA: Low lung volumes with mild basilar atelectasis. Increased perihilar airspace opacities relative to 06/23/2022. Trace pleural effusions. No pneumothorax. HEART, MEDIASTINUM AND KEVIN: Heart is normal in size. Normal mediastinal and hilar contour. BONES AND SOFT TISSUES: No acute abnormality. IMPRESSION: Suboptimal exam due to low lung volumes and patient rotation. Increased perihilar airspace opacities relative to 06/23/2022 which could be secondary to edema, although infection is difficult to exclude on radiograph. WSN: [id number] Ordering Physician: Simi Martin Dictated By: Jorge Chavez MD Dictated Date/Time: 07/04/22 8:21 pm Reviewed By: Jorge Chavez MD Signed By: Jorge Chavez MD Signed Date/Time: 07/04/22 8:21 pm Transcribed By: RHYS Transcribed Date/Time: 07/04/22 8:19 pm * Exam Date Time Procedure Performing Provider Status 06/28/22 9:24 AM US RUQ Berta Benitez; Anna (Ve rified) Notes: (US RUQ) Reason For Exam: Biliary Obstruction RESULT: US RUQ US Abdominal Doppler Comp, US RUQ Reason: GI request; Clinical Question(s): Thrombosis TECHNIQUE: Color flow and duplex Doppler analysis of abdominal vasculature. Right upper quadrant ultrasound also performed. COMPARISON: CT abdomen and pelvis 06/23/2022. FINDINGS: Study is limited by bowel gas and patient body habitus. Vascular Findings: Arteries: Hepatic arteries: Arterial waveforms in the visualized hepatic arteries are normal. Hepatic artery angle-corrected velocity: 138.9 cm/sec. Hepatic artery resistive index: 0.7 (Normal range: 0.55-0.7). Veins: Portal veins: The main portal vein appears patent but with reversal of flow. No definite visualizedthrombosis. The right and left portal veins are not visualized. Portal vein angle-corrected velocity: -24.6 cm/sec (Normal range: 16-40 cm/sec). Hepatic veins: The left hepatic vein is not visualized. The right and middle hepatic veins are patent with appropriate hepatofugal flow and phasic form. Inferior vena cava: IVC is patent with appropriate direction of flow. Splenic vein: Patent splenic vein is seen only at the hilum. Spleen length: 16.2 cm. Additional Findings: Liver: Echogenic and difficult to penetrate hepatic parenchyma, limiting evaluation for focal lesions. Nodular hepatic contour. Gallbladder: Status post cholecystectomy. Biliary Tree: No intrahepatic or extrahepatic bile duct dilation is identified. Common duct: 1.0 cm. Pancreas: Obscured by overlying bowel gas. Right kidney: Limited evaluation. Normal parenchymal echotexture and thickness. No hydronephrosis, stone or mass. IMPRESSION: 1. Limited study with reversal flow seen within the main portal vein although no discrete thrombus is seen and the vasculature appears patent on recent CT abdomen and pelvis 06/23/2022. Cannot excludepartial thrombosis of the portal vein. If there is clinical concern for portal vein thrombosis, confirmation with CT is suggested. 2. Cirrhotic liver morphology and sequela of portal hypertension including small volume ascites andsplenomegaly. I have personally reviewed the images and I agree with this report. WSN: [id number] Ordering Physician: Li David Dictated By: Mirza Gardiner DO Dictated Date/Time: 06/28/22 10:07 a Reviewed By: Jordan England MD Signed By: Jordan England MD Signed Date/Time: 06/28/22 10:12 am Transcribed By: RHYS Transcribed Date/Time: 06/28/22 9:57 am * Exam Date Time Procedure Performing Provider Status 06/28/22 9:24 AM US Abdominal Doppler Comp Parminder Benitez; Auth (Verified) Notes: (US Abdominal Doppler Comp) Reason For Exam: GI request;Other: RESULT: US Abdominal Doppler Comp US Abdominal Doppler Comp, US RUQ Reason: GI request; Clinical Question(s): Thrombosis TECHNIQUE: Color flow and duplex Doppler analysis of abdominal vasculature. Right upper quadrant ultrasound also performed. COMPARISON: CT abdomen and pelvis 06/23/2022. FINDINGS: Study is limited by bowel gas and patient body habitus. Vascular Findings: Arteries: Hepatic arteries: Arterial waveforms in the visualized hepatic arteries are normal. Hepatic artery angle-corrected velocity: 138.9 cm/sec. Hepatic artery resistive index: 0.7 (Normal range: 0.55-0.7). Veins: Portal veins: The main portal vein appears patent but with reversal of flow. No definite visualizedthrombosis. The right and left portal veins are not visualized. Portal vein angle-corrected velocity: -24.6 cm/sec (Normal range: 16-40 cm/sec). Hepatic veins: The left hepatic vein is not visualized. The right and middle hepatic veins are patent with appropriate hepatofugal flow and phasic form. Inferior vena cava: IVC is patent with appropriate direction of flow. Splenic vein: Patent splenic vein is seen only at the hilum. Spleen length: 16.2 cm. Additional Findings: Liver: Echogenic and difficult to penetrate hepatic parenchyma, limiting evaluation for focal lesions. Nodular hepatic contour. Gallbladder: Status post cholecystectomy. Biliary Tree: No intrahepatic or extrahepatic bile duct dilation is identified. Common duct: 1.0 cm. Pancreas: Obscured by overlying bowel gas. Right kidney: Limited evaluation. Normal parenchymal echotexture and thickness. No hydronephrosis, stone or mass. IMPRESSION: 1. Limited study with reversal flow seen within the main portal vein although no discrete thrombus is seen and the vasculature appears patent on recent CT abdomen and pelvis 06/23/2022. Cannot excludepartial thrombosis of the portal vein. If there is clinical concern for portal vein thrombosis, confirmation with CT is suggested. 2. Cirrhotic liver morphology and sequela of portal hypertension including small volume ascites andsplenomegaly. I have personally reviewed the images and I agree with this report. WSN: [id number] Ordering Physician: Li David Dictated By: Mirza Gardiner DO Dictated Date/Time: 06/28/22 10:07 a Reviewed By: Jordan England MD Signed By: Jordan England MD Signed Date/Time: 06/28/22 10:12 am Transcribed By: RHYS Transcribed Date/Time: 06/28/22 9:57 am * Exam Date Time Procedure Performing Provider Status 06/27/22 2:03 PM US Doppler Ext Lower Venous Bilat Lindsay Greer che; Auth (Verified) Notes: (US Doppler Ext Lower Venous Bilat) Reason For Exam: Swelling Extremities RESULT: US Doppler Ext Lower Venous Bilat US Doppler Ext Lower Venous Bilat REASON: Swelling Extremities COMPARISON: Bilateral lower extremity Doppler ultrasound 07/01/2021 IMAGING TECHNIQUE: Ultrasound of the veins from the groin through the calf was performed using grayscale, color, and spectral Doppler ultrasound assessing for complete compressibility and normal flowcharacteristics. FINDINGS: RIGHT LOWER EXTREMITY: Common femoral vein: Patent. No thrombosis. Femoral vein: Patent. No thrombosis. Popliteal vein: Patent. No thrombosis. Gastrocnemius veins: The visualized portions are patent without evidence of thrombosis. Peroneal veins: The visualized portions are patent without evidence of thrombosis. Posterior tibial veins: The visualized portions are patent without evidence of thrombosis. LEFT LOWER EXTREMITY: Common femoral vein: Patent. No thrombosis. Femoral vein: Patent. No thrombosis. Popliteal vein: Patent. No thrombosis. Gastrocnemius veins: The visualized portions are patent without evidence of thrombosis. Peroneal veins: The visualized portions are patent without evidence of thrombosis. Posterior tibial veins: The visualized portions are patent without evidence of thrombosis. OTHER FINDINGS: There is diffuse calf edema. IMPRESSION: No evidence of deep venous thrombosis. I have personally reviewed the images and I agree with this report. WSN: [id number] Ordering Physician: Mahnaz Landa Dictated By: Rui Modi MD Dictated Date/Time: 06/27/22 3:11 pm Reviewed By: Raul Bolanos MD Signed By: Raul Bolanos MD Signed Date/Time: 06/27/22 3:16 pm Transcribed By: RHYS Transcribed Date/Time: 06/27/22 2:11 pm * Exam Date Time Procedure Performing Provider Status 06/26/22 3:43 PM Esophagus Barium Swallow Ken Marie; Anna (Verified) Notes: (Esophagus Barium Swallow) Reason For Exam: Other:;Motility disorder RESULT: Esophagus Barium Swallow PROCEDURE: Esophagus Barium Swallow CLINICAL INDICATION: Question dysmotility COMPARISONS: Barium swallow 11/05/2008 FLUOROSCOPY TIME: 1.0 minutes EXPOSURE: 1446.4 uGy*m^2 TECHNIQUE: Barium contrast esophagram was performed by El Zhu PA-C. FINDINGS: Fire Manager: Surgical clips are seen projecting over the left and right upper quadrants. Swallow: Normal oral and pharyngeal phases with no laryngeal penetration or subglottic aspiration. Esophagus: 2.7 cm long vertically oriented erosion of the left lateral wall the distal esophagus approximately 8 cm proximal to the GEJ is seen, consistent with findings on endoscopy. Suspected additional erosion along the anterior margin of the mid esophagus measuring 2.3 cm in length. Tertiary contractions of the distal half of the esophagus are visualized, with some proximal escape the barium bolus noted. No hiatal hernia. No spontaneous gastroesophageal reflux was appreciated during the study. A 13 mm barium tablet was not trialed per request of the ordering clinician. No evidence of esophageal web, narrowing or outpouching. No esophageal obstruction. The stomach and proximal jejunal are grossly normal, with expected postoperative changes status post gastric bypass, unchanged from prior study. Contrast promptly empties from the gastric pouch into a nondilated proximal jejunum. No gastric outlet obstruction. IMPRESSION: 1. Findings consistent with linear esophageal erosions in the mid and distal esophagus as seen on endoscopy earlier today. 2. Mild to moderate esophageal dysmotility. 3. Expected postoperative anatomy status post gastric bypass is unchanged. By undersigning and finalizing the report, the attending radiologist confirms he/she has personallyreviewed and interpreted the images and agrees with the description of the findings. I have personally reviewed the images and I agree with this report. WSN: [id number] Ordering Physician: Dianna Cottrell Dictated By: Zander Harrison Dictated Date/Time: 06/26/22 4:16 pm Reviewed By: Raul Bolanos MD Signed By: Raul Bolanos MD Signed Date/Time: 06/26/22 4:21 pm Transcribed By: RHYS Transcribed Date/Time: 06/26/22 3:41 pm * Exam Date Time Procedure Performing Provider Status 06/23/22 4:[address] Abd/Pelvis W/ IV Contrast Only Tessy Ott; Auth (Verified) Notes: (CT Abd/Pelvis W/ IV Contrast Only) Reason For Exam: LLQ abdominal pain;Other: RESULT: CT Abd/Pelvis W/ IV Contrast Only CT Abd/Pelvis W/ IV Contrast Only Hx of Present Illness: Multiple complaints- pain all over, swelling of abd and legs, 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 100 cc of Omnipaque 300 was administered intravenously. This study was performed without oral contrast. Weight-based protocol using automatic tube modulation was used to optimize exposure parameters. CTDIvol Body: 33.70 mGy, DLP Body: 1910 mGy*cm. COMPARISON: 02/15/2009. FINDINGS: Fire Manager View Findings, Lines and Tubes: None. Visualized Chest: There are bilateral small pleural effusions, right larger than left. There are coronary artery calcifications. Diaphragm: Unremarkable. Liver: Diffuse low-attenuation throughout the liver parenchyma consistent with hepatic steatosis. No evidence of mass. Gallbladder: Absent consistent with prior cholecystectomy. Bile ducts: Mildly dilated common bile duct likely representing postcholecystectomy change. Spleen: The spleen is enlarged measuring 16 cm. Pancreas: Unremarkable. Adrenal glands: Unremarkable. Kidneys and ureters: Bilateral foci of renal cortical thinning consistent with scarring. Bladder: Unremarkable. Reproductive organs: Unremarkable. Stomach, small bowel, and large bowel: Diverticulosis of the colon without evidence of diverticulitis. Small diverticulum of the second segment of the duodenum. Again demonstrated are postsurgical changes in the stomach. Appendix: Not seen, but no evidence of appendicitis. Peritoneum and retroperitoneum: There is a small amount of abdominopelvic free fluid. In the anterior left pelvic cavity there is an elongated hypodense lesion with rim calcifications which measures 6.8 cm, unchanged when compared to the CT scan performed on 06/03/2020. Lymph nodes: No enlarged lymph nodes. Blood vessels: There are extensive prominent perisplenic varices extending to the left abdomen/pelvis. There are mild atherosclerotic calcifications. Abdominal and pelvic wall: There is extensive subcutaneous fat induration/stranding. Bones: There are multiple anterior and lateral right rib fractures. There is stable mild vertebral body compression fracture deformities at T12 and L1. Again demonstrated are multilevel discogenic degenerative changes at the thoracolumbar spine with spurring. IMPRESSION: 1. Splenomegaly. 2. Mild abdominopelvic ascites. 3. Extensive varices in the left abdomen/pelvis. 4. Small bilateral pleural effusions. 5. Hepatic steatosis. 6. Extensive subcutaneous abdominal and pelvic wall fat induration and stranding consistent with edema. 7. Chronic findings as detailed above. WSN: [id number] Ordering Physician: Anne Marie Dempsey Dictated By: Brooke Hernandez MD Dictated Date/Time: 06/23/22 5:44 pm Reviewed By: Brooke Hernandez MD Signed By: Brooke Hernandez MD Signed Date/Time: 06/23/22 5:44 pm Transcribed By: RHYS Transcribed Date/Time: 06/23/22 5:09 pm * Exam Date Time Procedure Performing Provider Status 06/23/22 11:30 AM Chest 2 Views Frontal and Lat Edwardo Worrell; Auth (Verified) Notes: (Chest 2 Views Frontal and Lat) Reason For Exam: Shortness of Breath RESULT: Chest 2 Views Frontal and Lat Chest 2 Views Frontal and Lat Hx of Present Illness: Multiple complaints - pain all over, swelling of abd and legs, 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 Blood in urine and stool starting 1.5 weeks; Reason: Shortness of Breath; Clinical Question(s): Pneumonia. COMPARISON: 06/30/2021. FINDINGS: LUNGS AND PLEURA: Trace bilateral pleural effusions are new. No pleural effusion. No pneumothorax. HEART, MEDIASTINUM AND KEVIN: Heart is normal in size. Normal mediastinal and hilar contour. BONES AND SOFT TISSUES: No acute abnormality. IMPRESSION: Trace effusions are new. Otherwise clear lungs. WSN: [id number] Ordering Physician: Billie Chou MD Dictated By: Emmanuel Cam MD Dictated Date/Time: 06/23/22 11:39 a Reviewed By: Emmanuel Cam MD Signed By: Emmanuel Cam MD Signed Date/Time: 06/23/22 11:39 am Transcribed By: CSSarah Transcribed Date/Time: 06/23/22 11:33 am Vital Signs Most recent to oldest [Reference Range]: 1 2 3 Weight 120.3 kg (06/26/22 10:41 AM) 120.3 kg (06/25/22 1:00 PM) Oxygen Saturation [94-100 %] 100 % (07/07/22 8:19 AM) 100 % (07/07/22 12:56 AM) 100 % (07/06/22 7:29 PM) Pulse Rate [55-90 bpm] 81 bpm (07/07/22 8:19 AM) 80 bpm (07/07/22 12:56 AM) 88 bpm (07/06/22 7:29 PM) Blood Pressure [90-138/55-84 mm Hg] 113/66mm Hg (07/07/22 8:19 AM) 122/70mm Hg (07/07/22 12:56 AM) 104/66mm Hg (07/06/22 7:29 PM) Respiratory Rate [16-30 br/min] 18 br/min (07/07/22 8:19 AM) 20 br/min (07/07/22 12:56 AM) 20 br/min (07/06/22 7:29 PM) Temperature [96.8-100.4 DegF] 98.2 DegF (07/07/22 8:19 AM) 98.7 DegF (07/07/22 12:56 AM) 98.2 DegF (07/06/22 7:29 PM) Liters per Minute 5 L/min (06/26/22 12:48 PM) Mode of Delivery (Oxygen) Room air (07/07/22 8:19 AM) Room air (07/07/22 12:56 AM) Room air (07/06/22 7:29 PM) Blood pressure sites Arm, left (07/07/22 8:19 AM) Arm, right (07/07/22 12:56 AM) Arm, right (07/06/22 7:29 PM) Temperature Route Oral (07/07/22 8:19 AM) Oral (07/07/22 12:56 AM) Oral (07/06/22 7:29 PM) Social History Social History Type Response Smoking Status Never (less than 100 in lifetime) entered on: 02/27/18 Sex Consult note * Elva (Surgery) Michela DOUGLASS: PERFORM Elva (Surgery) Michela DOUGLASS: PERFORM, SIGN Elva (Surgery) Michela DOUGLASS: SIGN, VERIFY Elva (Surgery) Michela DOUGLASS: VERIFY, MODIFY Event Display: Consult Authored Date: Patient: DESHAUN GOODRICH Age: 61 years Sex: Male : 1960 Associated Diagnoses: None Author: Elva (Surgery) Michela DOUGLASS Visit Information Referring physician: Dr. Vickers Consulting physician: Dr. Curiel Reason for consult: rectal bleeding in history of RNY History of Present Illness Deshaun Goodrich is a 61 year old male with history of EtOH use disorder (last drink 6 months ago) and RNYGB (2008, Nedra), who presented with rectal bleeding. Patient reports a 2 week history of diarrhea and bright red blood per rectum, filling the toilet bowel each time he had a bowel movement. The diarrhea has since slowed, but he has continued to have rectal bleeding, claiming it fills hisunderwear and he now has to wear a diaper. 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 On arrival, patient was hemodynamically stable. H&H trended, and remained stable at 9.8/29.3. A CT scan was obtainedas a part of his evaluation, demonstrating left abdominal and pelvic varices, but no acute findings. He was admitted to the medical service for gastroenterology consultation to evaluate for sources of bleeding, but given his history of bariatric surgery, consultation obtained. Patient currently denies pain. He has multiple complaints, stating he has chronic nausea and sticking in his chest whenhe eats, which he feels has been exacerbated since the onset of his rectal bleeding. Patient is on chronic PPI therapy, which he has continued without missed doses. His last colonoscopy was in 2019, which demonstrated internal hemorrhoids and diverticular disease throughout his colon. No history ofprior GI bleeds. No history of gastric ulcers. Past Medical History: - HTN - DM - Osteoarthritis - Anemia - Former EtOH use disorder Past Surgical History: - RNY Gastric Bypass (2008, Nedra) - L inguinal hernia repair (2010, Nedra) - Laparoscopic cholecystectomy (2017, Nedra) Medications: - Atorvastatin (atorvastatin 80 mg oral tablet) 1 tab(s) 80 Milligram By Mouth Daily at bedtime - BuPROpion 300 Milligram By Mouth Daily - Cyanocobalamin (cyanocobalamin 100 mcg oral tablet) 100 Microgram 1 tablet By Mouth Daily - Dicyclomine (dicyclomine 10 mg oral capsule) 1 capsule 10 Milligram By Mouth 3 times a day after meals for 7 Days - Docusate (Colace sodium 100 mg oral capsule) 100 Milligram 1 capsule By Mouth 2 times a day as needed with plenty of water for constipation - Ferrous Sulfate (ferrous sulfate 325 mg oral enteric coated tablet) 325 Milligram 1 tablet By Mouth Daily - Folic Acid (folic acid 1 mg oral tablet) 1 Milligram 1 tablet By Mouth Daily for 30 Days - Losartan (losartan 25 mg oral tablet) 25 Milligram 1 tablet By Mouth Daily - Midodrine (midodrine 2.5 mg oral tablet) See Instructions 1 tablet By Mouth 2 times a day after waking and 8 hours later in the afternoon. Do not lay down for any extended time with medication. If PM nap needed do no take second dose. - Multivitamin With Iron (Iron 100 Plus) 1 tab(s) By Mouth Daily - Nitroglycerin (nitroglycerin 0.3 mg/hr transdermal film, extended release) 1 patch(es) Topically Daily at bedtime Remove upon waking, maintain a nitrate-free interval of 10 to 12 hours - Pantoprazole (Protonix 40 mg oral delayed release tablet) 1 tab(s) 40 Milligram By Mouth 2 times a day for 30 Days - Ropinirole (rOPINIRole 1 mg oral tablet) 1 tab(s) 1 Milligram By Mouth Daily at bedtime Allergies: - Latex Family History: - No history of bleeding or clotting disorders Social History: - Nonsmoker - Former EtOH use disorder - No recreational drug use Review of Systems All systems reviewed and negative except as listed in HPI. Physical Examination Temperature 97.9 (22:51) Systolic Blood Pressure 111 (22:51) Diastolic Blood Pressure 71 (22:51) Pulse 85 (22:51) SpO2 99 (22:51) Respiratory Rate 16 (22:51) Constitutional: well appearing, no acute distress HEENT: normocephalic, atraumatic. no scleral icterus. moist mucous membranes. Cardiovascular: RRR, no murmurs/rubs/gallops Pulmonary: breathing comfortably on room air, clear to auscultation bilaterally Abdomen: soft, nondistended. Diffuse tenderness to palpation without rebound or guarding Rectal: no external fissures or hemorrhoids. HARLEEN without palpable masses. no blood or stool in rectal vault. Skin: no rashes or lesions noted MSK: no cyanosis or clubbing. no gross deformities. moving all extremities spontaneously Neuro: alert and oriented. no focal deficits Results Review 7 day results Labs & Documents Laboratory 06/23/2022 10:53 EDT WBC 5.5 k/mm3 RBC 2.67 m/mm3 L Hgb 9.8 Gm/dL L Hct 29.3 % L MCV 109.7 femtoliters H MCH 36.7 pg H MCHC 33.4 g/dL Platelet Count 80 k/mm3 L RDW-SD 76.2 femtoliters H MPV 10.5 femtoliters Nucleated RBC (Automated) 0.0 #/100 WBC'S Abs. NRBC 0.0 k/mm3 Abs. Neut 3.2 k/mm3 Abs. Lymph 1.4 k/mm3 Abs. Falls 0.7 k/mm3 Abs. Eo 0.1 k/mm3 Abs. Baso 0.0 k/mm3 Neut % 58.6 % Lymph % 25.8 % Falls % 12.9 % H Eos % 1.5 % Baso % 0.5 % Imm Gran 0.7 % Abs. Imm Gran 0.0 k/mm3 INR 1.7 H Protime (PT) 17.3 seconds H Hold Blue Top SPECIMEN DISCARDED AFTER 4 HOURS. Sodium 135 mmol/L Potassium 4.4 mmol/L Chloride 105 mmol/L Bicarbonate Level 23 mmol/L Anion Gap 7 Glucose Level 95 mg/dL BUN 9 mg/dL Creatinine-Blood 1.0 mg/dL Estimated GFR Creatinine 89 ML/MIN/1.73 M2 Calcium 7.9 mg/dL L Protein, Total 5.8 Gm/dL L Albumin 1.9 Gm/dL L AG Ratio 0.5 Alkaline Phosphatase 110 units/L Lipase 29 units/L AST (SGOT) 68 units/L H ALT (SGPT) 33 units/L Bilirubin, Total 5.2 mg/dL H Lactate 1.9 mmol/L Hold Green Top SPECIMEN DISCARDED AFTER 1 WEEK 06/22/2022 10:35 EDT WBC 5.4 k/mm3 RBC 2.75 m/mm3 L Hgb 10.0 Gm/dL L Hct 30.1 % L MCV 109.5 femtoliters H MCH 36.4 pg H MCHC 33.2 g/dL Platelet Count 79 k/mm3 L RDW-SD 77.4 femtoliters H MPV 10.5 femtoliters Nucleated RBC (Automated) 0.0 #/100 WBC'S Abs. NRBC 0.0 k/mm3 Abs. Neut 3.2 k/mm3 Abs. Lymph 1.4 k/mm3 Abs. Falls 0.6 k/mm3 Abs. Eo 0.1 k/mm3 Abs. Baso 0.0 k/mm3 Neut % 60.0 % Lymph % 26.4 % Falls % 11.0 % H Eos % 1.3 % Baso % 0.4 % Imm Gran 0.9 % Abs. Imm Gran 0.1 k/mm3 Hold Blue Top SPECIMEN DISCARDED AFTER 4 HOURS. Sodium 136 mmol/L Potassium 4.3 mmol/L Chloride 104 mmol/L Bicarbonate Level 25 mmol/L Anion Gap 7 Glucose Level 99 mg/dL BUN 8 mg/dL Creatinine-Blood 0.9 mg/dL Estimated GFR Creatinine 96 ML/MIN/1.73 M2 Calcium 8.3 mg/dL L Protein, Total 6.1 Gm/dL L Albumin 2.2 Gm/dL L AG Ratio 0.6 Alkaline Phosphatase 120 units/L Lipase 36 units/L AST (SGOT) 77 units/L H ALT (SGPT) 39 units/L Bilirubin, Total 5.1 mg/dL H Lactate 2.0 mmol/L CT Abd/Pelvis W/ IV Contrast Only Event Date: 06/23/2022 16:50:04 EDT Updated: 06/23/2022 17:[address] Abd/Pelvis W/ IV Contrast Only This document has an image Reason For Exam LLQ abdominal pain;Other: RESULT: CT Abd/Pelvis W/ IV Contrast Only CT Abd/Pelvis W/ IV Contrast Only Hx of Present Illness: Multiple complaints- pain all over, swelling of abd and legs, 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 100 cc of Omnipaque 300 was administered intravenously. This study was performed without oral contrast. Weight-based protocol using automatic tube modulation was used to optimize exposure parameters. CTDIvol Body: 33.70 mGy, DLP Body: 1910 mGy*cm. COMPARISON: 02/15/2009. FINDINGS: Fire Manager View Findings, Lines and Tubes: None. Visualized Chest: There are bilateral small pleural effusions, right larger than left. There are coronary artery calcifications. Diaphragm: Unremarkable. Liver: Diffuse low-attenuation throughout the liver parenchyma consistent with hepatic steatosis. No evidence of mass. Gallbladder: Absent consistent with prior cholecystectomy. Bile ducts: Mildly dilated common bile duct likely representing postcholecystectomy change. Spleen: The spleen is enlarged measuring 16 cm. Pancreas: Unremarkable. Adrenal glands: Unremarkable. Kidneys and ureters: Bilateral foci of renal cortical thinning consistent with scarring. Bladder: Unremarkable. Reproductive organs: Unremarkable. Stomach, small bowel, and large bowel: Diverticulosis of the colon without evidence of diverticulitis. Small diverticulum of the second segment of the duodenum. Again demonstrated are postsurgical changes in the stomach. Appendix: Not seen, but no evidence of appendicitis. Peritoneum and retroperitoneum: There is a small amount of abdominopelvic free fluid. In the anterior left pelvic cavity there is an elongated hypodense lesion with rim calcifications which measures 6.8 cm, unchanged when compared to the CT scan performed on 06/03/2020. Lymph nodes: No enlarged lymph nodes. Blood vessels: There are extensive prominent perisplenic varices extending to the left abdomen/pelvis. There are mild atherosclerotic calcifications. Abdominal and pelvic wall: There is extensive subcutaneous fat induration/stranding. Bones: There are multiple anterior and lateral right rib fractures. There is stable mild vertebral body compression fracture deformities at T12 and L1. Again demonstrated are multilevel discogenic degenerative changes at the thoracolumbar spine with spurring. IMPRESSION: 1. Splenomegaly. 2. Mild abdominopelvic ascites. 3. Extensive varices in the left abdomen/pelvis. 4. Small bilateral pleural effusions. 5. Hepatic steatosis. 6. Extensive subcutaneous abdominal and pelvic wall fat induration and stranding consistent with edema. 7. Chronic findings as detailed above. Impression and Plan Deshaun Goodrich is a 61 year old male with history of EtOH use disorder (last drink 6 months ago) and RNYGB (2008, Nedra), who presented with a 2 week history of rectal bleeding in the context ofdiarrhea. Work up in the ED notable for a stable H&H and CT scan without acute intra-abdominal findings. However, given his bariatric surgery history, surgical consultation obtained. At time of exam, patient was hemodynamically stable and mentating appropriately. He is diffusely and nondescriptly tender without rebound or guarding, and is nondistended. His rectal exam was unremarkable withoutevidence of masses or hemorrhoids, and no blood was noted on his diaper or in the rectal vault. Mellissa ent does have a history of internal hemorrhoids noted on colonoscopy in 2019, and given his recent profuse diarrhea, bleeding may be related to local irritation. Low suspicion for an upper GI source given his hemodynamic and laboratory stability, though patient is at risk given his history. Patientlikely warrants GI consultation for endoscopic evaluation to assess for source of GIB. At this time, no surgical intervention to be offered, but will continue to follow. He should continue to have H&H trended, with transfusions/resuscitation as needed to maintain adequate urine output. Recommendations: - No surgical intervention - Trend H&H - Strict I&O - Resuscitate/transfuse PRN to UOP - Gastroenterology consultation for EGD/colonoscopy - Transfer to [place] [facility] in AM Discussed with Dr. Veena NOONAN [id number] * Veena MARSHALL MD (Surgeon)Bárbara: PERFORM Event Display: Consult Authored Date: [id number] as outlined, seen and examined, stable gi bleed, history of gastric bypass. GI to scope. will transfer care back to primary team Note * Brigid Goss RN: PERFORM Event Display: Discharge/Transfer Note Hospital Authored Date: [id number] Nursing Discharge Note Entered On: 07/07/2022 15:19 EDT Performed On: 07/07/2022 15:19 EDT by Brigid Goss RN Nursing Discharge Note 2 Discharge Time : 07/07/2022 15:00 EDT Discharge Level of Care at Discharge : retirement facility Discharge Nursing Homes/Rehab Facilities : [facility] Patient Left Unit Via : Ambulatory Patient Accompanied Off Unit with : Responsible adult DC Instructions Provided & Signed by Pt : Yes Patient Understands D/C Instructions : Yes Patient Instructions Discharge Signed : Yes Discharge Comments : pt refused wheelchair IV removed Did Pt have Specialty Bed or Wound Vac : No Brigid Goss RN - 07/07/2022 15:19 EDT * Event Display: Discharge/Transfer Note Hospital Authored Date: [id number] * Brigid Goss RN: PERFORM Event Display: Patient Education/Instruction Authored Date: [id number] Inpatient Adult Discharge Instructions [address] [address] Name: DESHAUN GOODRICH : 1960 Visit: 06/23/2022 20:52:00 Current Date: 07/07/2022 13:21 Account: [id number] Inpatient Adult Discharge Instructions We would like to thank you for allowing us to assist you with your healthcare needs. The following includes patient education materials and information regarding your injury/illness. Our entire staffstrives to provide an excellent experience for our patients and their families. PLEASE ENSURE YOU FOLLOW-UP PER THE INSTRUCTIONS BELOW! ?? YOUR OPINION IS IMPORTANT TO US! Please complete the survey you may receive by mail or email. Your feedback will be used to make improvements to the healthcare experiences of our patients and their families. Surveys are administered by [employer] ?? If further treatment with your primary care physician or another doctor is recommended, it is important for you to keep the appointment. Call your primary care physician or return to the Emergency Department immediately if your condition worsens, fails to improve, or new symptoms develop. If you need to find a doctor, you can call [facility] [employer] for a referral at [phone] or toll free at [phone]) or log in to [email or web address].. ?? You can view and manage your care through the patient portal or by using a health care megan of your choosing. [employer] is a website that allows you to securely view your medical information including your hospital discharge summary, office visit summaries, medications and follow-up visits. You can also request appointments, renew medications, and request access to your medical information using a health care megan of your choosing, or just ask a question. You can enroll at [email or web address] or register during your next office visit. You have been discharged from [facility], Patient Care Unit: [id number]. If you have any questions regarding these instructions after you leave, please call us and we will be happy to assist you. [facility] Your Care Team Attending Physician Francois DOUGLASS, Fabian Consulting Providers Eve DOUGLASS, Ra French MD, Jatinder; Fabian Parrish MD; José Miguel Rosa MD, Jd Thomas Discharging Providers Fabian Parrish MD Reason for Your Visit Abdominal pain, General medical Your Diagnosis Abdominal pain Abdominal pain Alcoholic liver disease Anemia Anxiety BPH (benign prostatic hyperplasia) E-coli UTI,??UTI (urinary tract infection) General medical GI bleed JAKOB (obstructive sleep apnea) Peripheral edema Restless leg syndrome Type 2 diabetes mellitus Tests Performed Below is a partial list of the tests performed during your hospitalization. You may have had other tests and procedures not included in this list. Please discuss all test results with your provider. A1AT Albumin Level Alk Phos ALT Ammonia Venous GALINDO Screen AST Basic Metabolic Panel Bilirubin Total Bilirubin Total + Direct BUN Calcium Level CBC CBC w/ Differential Ceruloplasmin Comprehensive Metabolic Panel Copper Level Copper, Urine, Random or 24 hr COVID-19 (2019 Novel Coronavirus) PCR COVID-19 (NOVEL CORONAVIRUS), PCR Creatinine CRP Direct Ramos Test Electrolytes Ferritin FOLIC ACID Glucose Level GLUCOSE POC H + H HAPTOGLOBIN Hemoglobin A1c, (Diagnostic) Hepatitis Profile Hgb + Hct HIV Ab-Ag 4th Generation Hold Blue Top Tube HOLD GREEN TUBE HOLD LAVENDER TUBE IgG Level INR IRON & TIBC Lactic Acid Level LDH Lipase Lytes Magnesium Level Mg Level PERIOD & VOLUME PERIPHERAL BLOOD SMEAR REVIEW Phosphorus Level Procalcitonin Level Smooth Muscle Ab Screen Total Protein Transferrin Urinalysis Complete/Reflex Culture Urinalysis w/hold for Urine Culture VITAMIN B12 Abdominal Doppler Comp(US) CT Abd/Pelvis W/ IV Contrast Only CT Abdomen and Pelvis W/O Contrast CT Chest W/O Contrast Portable Chest US Doppler Ext Lower Venous Bilat US RUQ XR Chest 2 Views Frontal and Lat XR Esophagus Barium Swallow Primary Care Provider Jenni Dixon Advance Directive . Discharge Vitals Temperature: 98.2 DegF Weight: 120.3 kg Pulse Rate: 81 bpm ?? Respiratory Rate: 18 br/min ?? Systolic Blood Pressure: 113 mm Hg ?? Diastolic Blood Pressure: 66 mm Hg ?? Oxygen Saturation: 100 % ?? Studies Pending All tests and labs ordered during this hospital stay have been completed unless listed below. Please discuss all pending results with your provider listed above in these instructions. ?? Add On Lab Order Bilirubin Fractionated Blood Culture Blood Culture #2 Folate Level Iron + Iron Binding Capacity Vitamin B12 Level (B12 Vitamin Level) What to do next Instructions From Your Doctor Discharge Orders Diet:??Cardiac diet Code Status:?? Full Resuscitation Condition:??stable Prognosis:??Fair Scheduled Follow-Up Appointments Sunday. 2022 8:15 AM EDT ?? Where: [facility] You Need to Schedule the Following Appointments Follow Up with??Jenni Dixon When??Within 5 to 7 days Why: Follow-up with PCP in 1 week after discharge from short-term rehab Where: [address] [place] [address]- Discharge Medications DESHAUN GOODRICH :1960 Visit Date:06/23/2022 Medications: Please continue your medications until treatment is completed or stopped by your provider. Medications not listed below should be discontinued. Discuss any questions related to medications with your provider. What How Much When Instructions Next Dose New Cefpodoxime (cefpodoxime 200 mg oral tablet) 1 tab(s) Oral Every 12 hours Duration: 5 Days 07/07/22 9 pm New Furosemide (Lasix 20 mg oral tablet) 1 capsule Oral Twice a day Duration: 30 Days 07/07/22 5 pm New Lactulose (lactulose 10 gm/ 15 ml oral syrup) 30 Milliliter Oral Twice a day Hold if loose bowel movement more than 3 times and resume next day ?? 07/08/22 9 am New Potassium Phosphate-Sodium Phosphate (Phos-NaK Oral Powder) 1 pack/packet Oral Twice a day Duration: 3 Days 07/07/22 9 pm New Rifaximin (rifAXIMin 550 mg oral tablet) 1 tab(s) Oral Twice a day Duration: 7 Days 07/07/22 9 pm New Spironolactone (spironolactone 25 mg oral tablet) 2 tab(s) Oral Daily 07/08/22 9 am New Sucralfate (Carafate 1 gm oral tablet) 2 tab(s) Oral 3 times a day before meals and bedtime Duration: 30 Days 07/07/22 5 pm New Thiamine (thiamine 100 mg oral tablet) 1 tab(s) Oral Daily Duration: 14 Days 07/08/22 9 am Unchanged BuPROpion 300 Milligram Oral Daily 07/08/22 9 am Unchanged Ferrous Sulfate (ferrous sulfate 325 mg oral enteric coated tablet) 1 tab(s) Oral Daily 07/08/22 9 am Unchanged Folic Acid (folic acid 1 mg oral tablet) 1 tab(s) Oral Daily Duration: 30 Days 07/08/22 9 am Unchanged Multivitamin With Iron (Iron 100 Plus) 1 tab(s) Oral Daily 07/08/22 9 am Unchanged Nitroglycerin (nitroglycerin 0.3 mg/ hr transdermal film, extended release) 1 patch(es) Topically Daily at Bedtime Remove upon waking, maintain a nitrate-free interval of 10 to 12 hours ?? 07/07/22 9 pm Unchanged Pantoprazole (Protonix 40 mg oral delayed release tablet) 1 tab(s) Oral Twice a day Duration: 30 Days 07/07/22 5 pm Unchanged Ropinirole (rOPINIRole 1 mg oral tablet) 1 tab(s) Oral Daily at Bedtime 07/07/22 9 pm ?? What How Much When Comments Stop Taking Atorvastatin (atorvastatin 80 mg oral tablet) 1 tab(s) Oral Daily at Bedtime Stop Taking Cyanocobalamin (cyanocobalamin 100 mcg oral tablet) 1 tab(s) Oral Daily Stop Taking Dicyclomine (dicyclomine 10 mg oral capsule) 1 capsule Oral 3 times a day after meals Duration: 7 Days Stop Taking Docusate (Colace sodium 100 mg oral capsule) 1 capsule Oral Twice a day as needed for for constipation with plenty of water ?? Stop Taking Losartan (losartan 25 mg oral tablet) 1 tab(s) Oral Daily Stop Taking Midodrine (midodrine 2.5 mg oral tablet) See instructions 1 tablet By Mouth 2 times a day after waking and 8 hours later in the afternoon. Do not lay down for any extended time with medication. If PM nap needed do no take second dose. ?? Test Results Below is a partial list of the most recent Laboratory test results done prior to this discharge. You may have had other tests and procedures not included in this list. Please discuss all test resultswith your provider. (06/30/2022) ???Serological Investigation Report - Patient Name: DESHAUN GOODRICH Lab Patient : 1960 (Age: 61) Collection Date: 06/30/2022 Accession Date: 06/30/2022 Sign Out Date: 07/04/2022 Tissue Source: 1:TMS Direct Antiglobulin Test Final Diagnosis: SEROLOGICAL INVESTIGATION/CONSULTATION REPORT REASON FOR REPORT: Results from Direct Antiglobulin Testing Clinical Data: Diagnosis: Anemia Previous History: Serological Testing Problems: No known serological testing problems at [facility] Transfusion History: Multiple red cell transfusions, last two units of Red Blood Cells on 09/28/2008. LABORATORY INVESTIGATION RED CELL STUDIES DIRECT ANTIGLOBULIN TEST: Negative wi th Polyspecific, Anti-IgG and [id number] antisera ASSESSMENT: Antibody or complement binding to the red blood cell is undetectable using conventional antiglobulin testing. Absence of immunoglobulinor complement binding to the red blood cell membrane usually implies non-immune causes for the anemia. Clinical correlation and pertinent additional laboratory testing are advised. It should be notedthat a subset of patient with immune mediated hemolysis, however, can have a negative direct antiglobulin test (i.e., Ramos??? Negative Autoimmune Hemolytic Anemia). RECOMMENDATIONS: Continued hemolysis of unknown etiology, or suspicion of enhanced immune mediated red blood cell clearance are indications for repeat and/or more sensitive immunoserologic investigations. For a further discussion ofthis report, please contact the Transfusion Medicine Service at [phone]. Primary Pathologist:Aaron Molina, Ph.D, M.Malena. electronically signed out by: Aaron Molina, Ph.D, M.Leora / TREVOR Phone #: [phone], On-Call Pathologist: [phone] (06/26/2022) ???Surgical Pathology - Patient Name: DESHAUN GOODRICH [id number] Patient : 1960 (Age: 61) Collection Date: 06/26/2022 Accession Date: 06/26/2022 Sign Out Date: 06/30/2022 Tissue Source: 1:GASTRIC POUCH BIOPSIES 2:DISTAL ESOPHAGUS BIOPSIES 3:MID ESOPHAGUS BIOPSIES Final Diagnosis:1. Gastric pouch biopsy: - Gastric mucosa, body/fundic type, without pathologic changes. 2. Distal esophageal biopsy: - Esophageal ulcer with peptic necrosis of squamous epithelium. - Additional fragments of squamous mucosa without pathologic changes. - AFB and GMS stains are negative for fungi. - Viral cytopathic effect is not identified. 3. Mid esophageal biopsy: - Focal active esophagitis withmild neutrophilic infiltrate. - AFB and GMS stains are negative for fungi. - Viral cytopathic effect is not identified. Primary Pathologist:Mathew De Luna M.D. electronically signed out by: Mathew De Luna M.D. / NATHALIE Clinical History: Severe esophageal ulcers. Suspect medication related versusreflux. Please rule out infectious esophagitis, HSV, CMV evaluation Gross Description: Part 1. Label ed gastric pouch biopsies . Received in formalin are 6 pieces of soft garcia-pink tissue ranging from0.2 x 0.2 x 0.1 cm to 0.7 x 0.2 x 0.1 cm. The specimen is submitted in toto. 1-6 pieces, x2. ()* Part 2. Labeled distal esophagus biopsies . Received in formalin are 2 pieces of soft white-red tissue ranging from 0.2 x 0.2 x 0.1 cm to 0.4 x 0.2 x 0.1 cm. The specimen is submitted in toto. 1-2 pieces, x2. ()* Part 3. Labeled mid esophagus biopsies . Received in formalin are 4 pieces of soft white-garcia tissue ranging from 0.4 x 0.3 x 0.1 cm to 0.5 x 0.2 x 0.1 cm. The specimen is submitted intoto. 1-4 pieces, x2. ()* Phone #: [phone], On-Call Pathologist: [id number] A1AT (06/26/2022) ???Xgeai-6-[id number] - 127 mg/dL Albumin Level (07/04/2022) ???Albumin - 2.0 Gm/dL Alk Phos (07/04/2022) ???Alkaline Phosphatase - 91 units/L ALT (07/04/2022) ???ALT (SGPT) - 30 units/L Ammonia Venous (07/06/2022) ???Ammonia, Venous - 44 ??mole/L GALINDO Screen (06/25/2022) ???Anti-Nuclear Antibody Screen - NEGATIVE AST (07/04/2022) ???AST (SGOT) - 64 units/L Basic Metabolic Panel (07/01/2022) ???Sodium - 132 mmol/L???Potassium - 4.2 mmol/L???Chloride - 103 mmol/L???Bicarbonate Level - 25 mmol/L???Anion Gap - 4???Glucose Level - 121 mg/dL???BUN - 7 mg/dL???Creatinine-Blood - 1.0 mg/dL???Estimated GFR Creatinine - 85 ML/MIN/1.73 M2???Calcium - 8.1 mg/dL Bilirubin Total (07/04/2022) ???Bilirubin, Total - 5.4 mg/dL Bilirubin Total + Direct (06/27/2022) ???Bilirubin, Total - 3.9 mg/dL???Bilirubin, Direct - 2.3 mg/dL???Bilirubin, Indirect - 1.6 mg/dL BUN (07/04/2022) ???BUN - 10 mg/dL Calcium Level (07/04/2022) ???Calcium - 8.4 mg/dL CBC (06/28/2022) ???WBC - 2.9 k/mm3???RBC - 2.47 m/mm3???Hgb - 9.0 Gm/dL???Hct - 27.8 %???MCV - 112.6 femtoliters???MCH - 36.4 pg???MCHC - 32.4 g/dL???Platelet Count - 72 k/mm3???RDW-SD - 75.4 femtoliters???MPV - 10.1 femtoliters???Nucleated RBC (Automated) - 0.0 #/100 WBC'S???Abs. NRBC - 0.0 k/mm3 CBC w/ Differential (07/04/2022) ???WBC - 6.7 k/mm3???RBC - 2.67 m/mm3???Hgb - 9.4 Gm/dL???Hct - 29.1 %???MCV - 109.0 femtoliters???MCH - 35.2 pg???MCHC - 32.3 g/dL???Platelet Count - 77 k/mm3???RDW-SD - 73.3 femtoliters???MPV - 10.7 femtoliters???Nucleated RBC (Automated) - 0.0 #/100 WBC'S???Abs. NRBC - 0.0 k/mm3???Abs. Neut - 4.5 k/mm3???Abs. Lymph - 1.5 k/mm3???Abs. Falls - 0.6 k/mm3???Abs. Eo - 0.0 k/mm3???Abs. Baso - 0.0 k/mm3???Neut % - 67.4 %???Lymph % - 22.6 %???Falls % - 8.9 %???Eos % - 0.3 %???Baso % - 0.2 %???Imm Gran- 0.6 %???Abs. Imm Gran - 0.0 k/mm3 Ceruloplasmin (06/26/2022) ???Ceruloplasmin - 9 mg/dL Comprehensive Metabolic Panel (06/29/2022) ???Sodium - 133 mmol/L???Potassium - 4.6 mmol/L???Chloride - 103 mmol/L???Bicarbonate Level - 26 mmol/L???Anion Gap - 4???Glucose Level - 85 mg/dL???BUN - 8 mg/dL???Creatinine-Blood - 1.0 mg/dL???Estimated GFR Creatinine - 86 ML/MIN/1.73 M2???Calcium - 7.9 mg/dL???Protein, Total - 5.6 Gm/dL???Albumin - 2.1 Gm/dL???AG Ratio - 0.6???Alkaline Phosphatase - 95 units/L???AST (SGOT) - 76 units/L???ALT (SGPT) - 32 units/L???Bilirubin, Total - 5.2 mg/dL Copper Level (06/26/2022) ???Copper Level - 40 Copper, Urine, Random or 24 hr (06/27/2022) ???Copper, Urine - 79???Copper, Urine 24 Hr - 59???Copper/Creat Ratio, Urine - 34???Creatinine, Urine - 2.32???Urine Volume 24Hr - 750 COVID-19 (2019 Novel Coronavirus) PCR (07/06/2022) ???COVID-19 PCR Specimen Source - NASAL???COVID-19 PCR Result - NEGATIVE COVID-19 (NOVEL CORONAVIRUS), PCR (06/25/2022) ???COVID-19 by RT-PCR - NEGATIVE Creatinine (07/06/2022) ???Creatinine-Blood - 1.1 mg/dL???Estimated GFR Creatinine - 75 ML/MIN/1.73 M2 CRP (07/06/2022) ???C-Reactive Protein - 2.6 mg/dL Direct Ramos Test (06/30/2022) ???Direct Antiglobulin Test, Anti-IgG, -C3d - Polyspecific : Negative???Direct Antiglobulin Test, Anti-IgG - Anti-IgG : Negative???Direct Antiglobulin Test, Anti-C3b,-C3d - Anti-C3d : Negative Electrolytes (06/27/2022) ???Sodium - 136 mmol/L???Potassium - 3.6 mmol/L???Chloride - 105 mmol/L???Bicarbonate Level - 25 mmol/L???Anion Gap - 6 Ferritin (06/27/2022) ???Ferritin Level - 400 ng/mL FOLIC ACID (06/25/2022) ???Folic Acid Level - 5.7 ng/mL Glucose Level (07/04/2022) ???Glucose Level - 92 mg/dL GLUCOSE POC (07/04/2022) ???Glucose, POC - 103 mg/dL H + H (06/24/2022) ???Hgb - 9.4 Gm/dL???Hct - 28.6 % HAPTOGLOBIN (06/30/2022) ???Haptoglobin - 20 mg/dL Hemoglobin A1c, (Diagnostic) (06/24/2022) ? ?Hemoglobin A1C (Monitoring) - <4.2 % Hepatitis Profile (06/26/2022) ???Anti Hepatitis A IgM - NEGATIVE???Hepatitis B Surface Antigen - NEGATIVE???Hepatitis B Core Ab, IgM - NEGATIVE???Hepatitis C Ab - NEGATIVE Hgb + Hct (06/26/2022) ???Hgb - 9.8 Gm/dL???Hct - 31.0 % HIV Ab-Ag 4th Generation (06/26/2022) ???HIV 4th Generation Ab-Ag Result - NEGATIVE Hold Blue Top Tube (06/23/2022) ???Hold Blue Top - SPECIMEN DISCARDED AFTER 4 HOURS. HOLD GREEN TUBE (06/23/2022) ???Hold Green Top - SPECIMEN DISCARDED AFTER 1 WEEK HOLD LAVENDER TUBE (07/06/2022) ???Hold Lavender Top - SPECIMEN DISCARDED AFTER 24 HOURS. IgG Level (06/26/2022) ???IgG - 2141 mg/dL INR (06/29/2022) ???INR - 1.9???Protime (PT) - 19.5 seconds IRON & TIBC (06/25/2022) ???Iron Level - 60 mcg/dL???Iron Binding Capacity, Unsaturated - 31 mcg/dL???Iron Binding Capacity,Estimated Total - 91 mcg/dL???% Iron Saturation - 66 % Lactic Acid Level (07/04/2022) ???Lactate - 2.1 mmol/L LDH (06/30/2022) ???LDH - 214 units/L Lipase (06/23/2022) ???Lipase - 29 units/L Lytes (07/06/2022) ???Sodium - 140 mmol/L???Potassium - 3.2 mmol/L???Chloride - 113 mmol/L???Bicarbonate Level - 20 mmol/L???Anion Gap - 7 Magnesium Level (07/06/2022) ???Magnesium - 2.1 mg/dL Mg Level (07/04/2022) ???Magnesium - 2.0 mg/dL PERIOD & VOLUME (06/27/2022) ???Collection Period, Urine - 24 hrs???Volume, Urine - 750 mLs PERIPHERAL BLOOD SMEAR REVIEW (06/28/2022) ???Peripheral Blood Smear Review Interp. - Reviewed by pathologist. Phosphorus Level (07/06/2022) ???Phosphorus - 1.5 mg/dL Procalcitonin Level (07/04/2022) ???Procalcitonin - 0.16 ng/mL Smooth Muscle Ab Screen (06/29/2022) ???Smooth Muscle Ab - 12 Total Protein (07/04/2022) ???Protein, Total - 5.7 Gm/dL Transferrin (06/27/2022) ???Transferrin - 67 mg/dL Urinalysis Complete/Reflex Culture (07/04/2022) ???Appear/Color, Urine - YELLOW???Clarity - CLEAR???Specific [place], Urine - 1.016???pH, Urine - 8.5???Albumin, Urine - TRACE???Glucose, Urine - NEGATIVE???Ketones, Urine - NEGATIVE???Bilirubin, Urine - NEGATIVE???Hemoglobin, Urine - NEGATIVE???Nitrite, Urine - NEGATIVE???Leukocyte, Urine - NEGATIVE? ?Urobilinogen - >12 mg/dL? ?WBC's, Urine - 1 /HPF? ?RBC's, Urine - 1 /HPF? ?Squamous Epith - 1 /HPF???Culture Indication - CULTURE NOT INDICATED Urinalysis w/hold for Urine Culture (06/23/2022) ???Appear/Color, Urine - ORANGE???Specific [place], Urine - 1.039???pH, Urine - 6.5???Albumin, Urine - 1+???Glucose, Urine - NEGATIVE???Ketones, Urine - NEGATIVE???Bilirubin, Urine - 1+???Hemoglobin,Urine - NEGATIVE???Nitrite, Urine - NEGATIVE???Leukocyte, Urine - 3+???Urobilinogen - 8 mg/dL???WBC's, Urine - 106 /HPF???RBC's, Urine - 2 /HPF???Bacteria - HEAVY???Squamous Epith - 1 /HPF???Mucus - HEAVY???Hold Urine Culture - Testing available 48 hours from time of collection. VITAMIN B12 (06/25/2022) ???Vitamin B12 Level - 1178 pg/mL Allergies (NKA means No Known Allergies) Latex??(rash) Lactose Problems Active Problems??(10) Chronic Back Pain?? Diverticulitis?? Diverticulosis?? HTN?? Inguinal hernia?? Lactose intolerance?? Morbid Obesity?? Obese class II?? Restless Leg Syndrome?? Sleep Apnea?? Education Materials Below is the list of Educational Leaflet Providered with your Discharge Instructions. Valuables and Belongings I fully understand and agree that [facility] accepts no responsibility for all my personal property including clothing, toilet articles, radios, jewelry, dentures, hearing aids, rings, money, or any other property that is in my possession or is brought to me after admission. I understand certain valuables may be placed in a hospital safe for a short period of time. I understand that the hospital is not liable for loss or damage due to accident, fire, or other natural occurrence while said property is in the safe. I accept full responsibility for any personal property that I keep with me, and will not hold the hospital responsible in case of loss or disappearance. I acknowledge that i have been encouraged to send valuables and belongings home. ?? Review of Valuable and Belonging List: With patient Date for Pt to Sign Valuables/Belongings: 06/27/22 05:31:00 ?? Other Discharge Information ?? Wound Assessment?? Wound Assessment?? Wound Location I: Leg, right lower Wound Type I: Other: scab Wound I, Present on Admission: Yes ?? Case Management Discharge Plan?? Discharge Plan?? Discharge Agency Information?? Discharge Level of Care at Discharge: retirement facility Name of Agency #1: [facility] Discharge Transportation Arranged: [facility] Shayy Romero [facility] [phone] Service Categories #1: Physical Therapy, Long Term Mode of Transportation Arranged: Ambulance ?? Discharge Arranged Transport Date/Time: 07/06/22 15:30:00 ?? Discharge Nursing Homes/Rehab Facilities: [facility] ? Pulmonary Rehab Status?? Pulmonary Rehab Discharge Status?? Respiratory Rate: 18 br/min ? Common Emergency Awareness Tips IS IT A STROKE? Act FAST and Check for these signs: FACE Does the face look uneven? ARM Does one arm drift down? SPEECH Does their speech sound strange? TIME Call at any sign of stroke ?? Heart Attack Signs Chest discomfort: Most heart attacks involve discomfort in the center of the chest and lasts more than a few minutes, or goes away and comes back. It can feel like uncomfortable pressure, squeezing, fullness or pain. Discomfort in upper body: Symptoms can include pain or discomfort in one or both arms, back, neck, jaw or stomach. Shortness of breath: With or without discomfort. Other signs: Breaking out in a cold sweat, nausea, or lightheaded. Remember, MINUTES DO MATTER. If you experience any of these heart attack warning signs, call to get immediate medical attention! ?? Smoking can increase your chances of developing chronic health problems and can cause harmful effects to other family members in your house. If you smoke, you are strongly encouraged to quit. Please call [facility] at [phone] or [phone] Phone ([phone]) or log in to [email or web address] for referrals to smoking cessation programs. ?? 525 Suicide & Crisis Lifeline is available 16/10 if you or someone you know needs to find a reason to keep living. By calling 050 you'll be connected to a skilled, trained counselor at a crisis center in your area. INPATIENT DISCHARGE INSTRUCTIONS SIGNATURE PAGE DESHAUN GOODRICH Location:[facility] Registration Date and Time:06/23/2022 20:52 EDT Primary Care Physician: Rosa TIM, Jenni Frausto, I DESHAUN GOODRICH, have received the above patient education materials/instructions and have verbalized understanding. If ambulance or transport services are being used I further acknowledge being given a choice of service. ?? If you need to contact me, please call me at this number: . Patient/Commercial Electrician Name: Patient/Commercial Electrician Signature: Relationship to Patient: Witness Name/Signature: Date: * Fabian Parrish MD: PERFORM Event Display: Discharge/Transfer Note Hospital Authored Date: [id number] Patient: ??DESHAUN GOODRICH ? Age:??61 Years?Sex:??Male?:??1960?? Patient Information Discharge Location: [facility] Primary Care Physician: Jenni Dixon Admit Date/Time: 06/23/22 20:52 Discharge Disposition Discharge Disposition: Long Term Facility/Rehab Discharge Diagnosis Upper GI bleed?? Hepatic encephalopathy?? anemia due to blood loss Alcohol abuse Alcoholic liver disease (K70.9) Hypoalbuminemia JAKOB (obstructive sleep apnea) (G47.33) Peripheral edema (R60.9) ? _ Discharge Medications BuPROpion?300?Milligram?By Mouth?Daily Cefpodoxime (cefpodoxime 200 mg oral tablet)?1?tab(s)?200?Milligram?By Mouth?Every 12 hours?for 5?Days Ferrous Sulfate (ferrous sulfate 325 mg oral enteric coated tablet)?325?Milligram?1?tablet?By Mouth?Daily Folic Acid (folic acid 1 mg oral tablet)?1?Milligram?1?tablet?By Mouth?Daily?for 30?Days Furosemide (Lasix 20 mg oral tablet)?1?capsule?By Mouth?2 times a day?for 30?Days Lactulose (lactulose 10 gm/15 ml oral syrup)?30?Milliliter?20?gram?By Mouth?2 times a day?Hold if loose bowel movement more than 3 times and resume next day Multivitamin With Iron (Iron 100 Plus)?1?tab(s)?By Mouth?Daily Nitroglycerin (nitroglycerin 0.3 mg/hr transdermal film, extended release)?1?patch(es)?Topically?Daily at bedtime?Remove upon waking, maintain a nitrate-free interval of 10 to 12 hours Pantoprazole (Protonix 40 mg oral delayed release tablet)?1?tab(s)?40?Milligram?By Mouth?2 times a day?for 30?Days Potassium Phosphate-Sodium Phosphate (Phos-NaK Oral Powder)?1?pack/packet?By Mouth?2 times a day?for 3?Days Rifaximin (rifAXIMin 550 mg oral tablet)?1?tab(s)?550?Milligram?By Mouth?2 times a day?for 7?Days Ropinirole (rOPINIRole 1 mg oral tablet)?1?tab(s)?1?Milligram?By Mouth?Daily at bedtime Spironolactone (spironolactone 25 mg oral tablet)?50?Milligram?2?tablet?By Mouth?Daily Sucralfate (Carafate 1 gm oral tablet)?2?gram?2?tablet?By Mouth?3 times a day before meals and bedtime?for 30?Days Thiamine (thiamine 100 mg oral tablet)?100?Milligram?1?tablet?By Mouth?Daily?for 14?Days ? Medications Started Lactulose,??rifaximin,??cefpodoxime,??Lasix, spironolactone Medications Discontinued Not sure if he was taking multiple medications, does not know his pills Doses Changed none Allergies Allergies ?(Active and Proposed Allergies Only) Lactose? (Severity: Unknown severity, Onset: Unknown) Latex? (Severity: Persistent Moderate, Onset: Unknown) ?Reactions: rash ? PCP Follow-Up/Heads-Up Follow-up on alcoholic liver disease, alcoholic liver cirrhosis,??anemia Future Appointments Sunday 8:15 AM EDT ?? Where: [facility] Hospital Course ?? 61-year-old male with a past medical history of hypertension, diabetes, JAKOB, anxiety, chronic anemia, alcohol use,??alcoholic liver cirrhosis, ??BPH, GERD, restless leg syndrome noncompliant with medication presents??to [facility] with epigastric pain, ??bright red blood per rectum.?? Patient admitted for??GI bleed, acute blood loss anemia.?? CT abdomen showed??liver cirrhosis with splenomegaly, mild??ascites. ??Patient admits that he has been actively drinking alcohol despite having liver cirrhosis.?? Seen by GI team, status post EGD colonoscopy??on this admission.?? Started on multiple medication including rifaximin,??lactulose??on this admission. ??Patient is on multiple medi cation??but??med reconciliation does not show any refill. ??I doubt he has been taking all of his medications, does not know his pills.?Patient underwent EGD, colonoscopy. ??patient was found to be obtunded on 07/04, found to have hepatic encephalopathy with ammonia of 125. ??After??lactulose rifaximin, ammonia down to??44 today, patient more awake alert.?? Patient walked to bathroom with minimal??assistance,??follows commands, coherent.?? Had a long conversation with patient about his alcohol issues and current??diagnosis of liver cirrhosis, discussed with alcohol cessation.?? Talked to his daughter Marie over phone and updated??well on current issues,??diagnosis of alcoholic liver cirrhosis and??needs to stop drinking completely.?? Daughter and patient agreed for short-term rehab, being discharged to short-term rehab today ? GI bleed???upper GI Dysphagia/ Odynophagia Esophagitis/ Esophageal dysmotility Surgery consulted for history of Roun En Y, signed off. GI consulted, s/p EGD, colonoscopy. 06/26: Multiple long linear ulcers and erosions in the esophagus.?? No evidence of ulceration at Gracy-en-Y gastric pouch.?? Colonoscopy with internal and external hemorrhoids with moderate diverticulosis. Barium swallow showed??findings consistent with linear esophageal erosions in the mid and distal esophagus,??Mild to moderate esophageal dysmotility. Expected postoperative anatomy status post gastric bypass is unchanged. GI recommended PPI BID?? for 8 weeks, Swallow therapy??evaluated the patient and recommended no issues with oropharyngeal swallow , however he had emesis during evaluation. c/o substernal pain and globus sensation GI recommend further w/u for dysmotility after??treating esophagitis . will need repeat endoscopy in few weeks. ? 6/16 Biopsy results from EGD unremarkable. Plan: continue PPI???total??7 weeks after discharge Continue PPI?? follow-up with PCP and GI team as outpatient No NSAIDs or aspirin ? Alcoholic liver cirrhosis Alcoholic liver disease Alcohol abuse Hepatic and cephalopathy???07/04?? Hypoalbuminemia?? Last drink about 6 months ago per pt, has hepatic steatosis, elevated liver enzymes, elevated INR, low albumin s/o liver failure, has mild ascites, varices and subcutaneous edema due to low albumin Viral hepatitis panel negative, HIV negative Actively drinking alcohol US doppler of abd shows Limited study with reversal flow seen within the main portal vein although no discrete thrombus is seen . vasculature appears patent on recent CT abdomen and pelvis 06/23/2022.?? No further w/u needed as per GI. US also showed cirrhosis with sequela of portal hypertension,??small volume ascites and splenomegaly. Discussed with radiology, patient did not have enough ascitic fluid for safe tap Ammonia???1 25???07/04 Treated with lactulose,??rifaximin, IV Lasix, albumin infusion Plan: Continue lactulose???lifelong Continue rifaximin for 7 days Continue Aldactone,??Lasix, thiamine, multivitamin, folic acid Follow-up with GI team as outpatiet ?? Peripheral edema (R60.9): Lower EXTR cellulitis?? Recent albumin???2 ??patient has pitting edema with induration in the both calves likely due to cirrhosis/ hypoalbuminemia Received 3 days of CTX for UTI, it was discontinued 06/26 and urine culture neg. US ruled/o DVT Restarted Rocephin from 07/05??for cellulitis Plan: Continue cefpodoxime??for 5 more days ? Anemia (D64.9):??Multifactorial Iron deficiency anemia due to??GI bleed Had elevated MCV but B12, FA normal. Hemoglobin on discharge was 9.4 ?Daughter Marie,? .?Talked to daughter and updated??on current issues, yesterday and today's ? Objective Assessment and Plan Discharge Planning:? Vital Signs?? Temperature: 98.4 DegF (07/06/22 08:04:00) Temperature Route: Oral (07/06/22 08:04:00) Pulse Rate: 82 bpm (07/06/22 08:04:00) Respiratory Rate: 28 br/min (07/06/22 08:04:00) Systolic Blood Pressure: 124 mm Hg (07/06/22 08:04:00) Diastolic Blood Pressure: 68 mm Hg (07/06/22 08:04:00) Blood pressure sites: Arm, right (07/06/22 08:04:00) Mean Arterial Pressure: 87 mm Hg (07/06/22 08:04:00) Pulse Pressure: 56 mm Hg (07/06/22 08:04:00) Oxygen Saturation: 100 % (07/06/22 08:04:00) Mode of Delivery (Oxygen): Room air (07/06/22 08:04:00) Early Warning Score: 8 (07/06/22 09:38:58) ? . Physical Exam ?? General:??Coherent and more awake??, ??not in pain, not in?? acute cardiopulmonary distress. Ear, Nose and Throat:??Oropharynx clear, mucous membranes moist.??no thrush Neck:??Supple, Full range of motion. Respiratory:??Clear to auscultation??. No wheezing, rales or rhonchi. Cardiovascular:??Heart sounds normal. Regular rate and rhythm, no murmurs Gastrointestinal:??Abdomen soft, non-tender, distended. Normal bowel sounds.. Neurologic:??Cranial nerves II-XII grossly intact. No focal neurological deficits.?? Skin:??No rashes or lesions. ??Bilateral lower extremity edema, tense,??erythema, tender to touch, warm to touch,??no blisters Musculoskeletal:??No cyanosis or clubbing. No gross deformities. Surgical Procedures Colonoscopy/Gastroscopy (EGD) 06/26/2022 11:41 Consultants GI team Pending Results Add On Lab Order ordered on 06/23/2022 Add On Lab Order ordered on 06/24/2022 Add On Lab Order ordered on 06/24/2022 Add On Lab Order ordered on 06/28/2022 Add On Lab Order ordered on 06/30/2022 Bilirubin Fractionated ordered on 06/24/2022 Blood Culture ordered on 07/04/2022 Blood Culture #2 ordered on 07/04/2022 COVID-19 (2019 Novel Coronavirus) PCR ordered on 07/06/2022 Folate Level ordered on 06/24/2022 Iron + Iron Binding Capacity ordered on 06/24/2022 Vitamin B12 Level ordered on 06/24/2022 Follow-Up Appointments Added Follow Up ?Time Frame ?Comments Rosa TIM, Jenni Frausto?5 to 7 days?Follow-up with PCP in 1week after discharge from short- term rehab Post Discharge Care Diet: Cardiac diet??2 g salt, Code Status: ?? Full Resuscitation Condition: stable Prognosis: Fair Discharge ?07/06/22 13:09:00 EDT Discharge Prescriptions ?None, ??07/06/22 13:09:00 EDT Home Health Face to Face ^HomeHealthFTF Results Discharge Labs BLOOD BANK Direct Antiglobulin Test, Anti-IgG, -C3d Polyspecific : Negative ()?? 06/30/2022 12:12 Direct Antiglobulin Test, Anti-IgG Anti-IgG : Negative ()?? 06/30/2022 12:12 Direct Antiglobulin Test, Anti-C3b,-C3d Anti-C3d : Negative ()?? 06/30/2022 12:12 ? BLOOD COUNT & DIFF WBC 6.7 k/mm3 ()?? 07/04/2022 22:50 RBC 2.67 m/mm3 (Low)?? 07/04/2022 22:50 Hgb 9.4 Gm/dL (Low)?? 07/04/2022 22:50 Hct 29.1 % (Low)?? 07/04/2022 22:50 MCV 109.0 femtoliters (High)?? 07/04/2022 22:50 MCH 35.2 pg (High)?? 07/04/2022 22:50 MCHC 32.3 g/dL (Low)?? 07/04/2022 22:50 Platelet Count 77 k/mm3 (Low)?? 07/04/2022 22:50 RDW-SD 73.3 femtoliters (High)?? 07/04/2022 22:50 MPV 10.7 femtoliters ()?? 07/04/2022 22:50 Nucleated RBC (Automated) 0.0 #/100 WBC'S ()?? 07/04/2022 22:50 Abs. NRBC 0.0 k/mm3 ()?? 07/04/2022 22:50 Abs. Neut 4.5 k/mm3 ()?? 07/04/2022 22:50 Abs. Lymph 1.5 k/mm3 ()?? 07/04/2022 22:50 Abs. Falls 0.6 k/mm3 ()?? 07/04/2022 22:50 Abs. Eo 0.0 k/mm3 ()?? 07/04/2022 22:50 Abs. Baso 0.0 k/mm3 ()?? 07/04/2022 22:50 Neut % 67.4 % ()?? 07/04/2022 22:50 Lymph % 22.6 % ()?? 07/04/2022 22:50 Falls % 8.9 % ()?? 07/04/2022 22:50 Eos % 0.3 % ()?? 07/04/2022 22:50 Baso % 0.2 % ()?? 07/04/2022 22:50 Peripheral Blood Smear Review Interp. Reviewed by pathologist. ()?? 06/28/2022 11:20 Imm Gran 0.6 % ()?? 07/04/2022 22:50 Abs. Imm Gran 0.0 k/mm3 ()?? 07/04/2022 22:50 ? CHEM GENERAL Sodium 140 mmol/L ()?? 07/06/2022 05:07 Potassium 3.2 mmol/L (Low)?? 07/06/2022 05:07 Chloride 113 mmol/L (High)?? 07/06/2022 05:07 Bicarbonate Level 20 mmol/L (Low)?? 07/06/2022 05:07 Anion Gap 7 ()?? 07/06/2022 05:07 Glucose Level 92 mg/dL ()?? 07/04/2022 22:50 Glucose, POC 103 mg/dL (High)?? 07/04/2022 21:04 Hemoglobin A1C (Monitoring) <4.2 % ()?? 06/24/2022 03:34 BUN 10 mg/dL ()?? 07/04/2022 22:50 Creatinine-Blood 1.1 mg/dL ()?? 07/06/2022 05:07 Estimated GFR Creatinine 75 ML/MIN/1.73 M2 ()?? 07/06/2022 05:07 Calcium 8.4 mg/dL (Low)?? 07/04/2022 22:50 Phosphorus 1.5 mg/dL (Low)?? 07/06/2022 05:07 Magnesium 2.1 mg/dL ()?? 07/06/2022 05:07 Protein, Total 5.7 Gm/dL (Low)?? 07/04/2022 22:50 Albumin 2.0 Gm/dL (Low)?? 07/04/2022 22:50 AG Ratio 0.6 ()?? 06/29/2022 07:02 LDH 214 units/L ()?? 06/30/2022 05:37 Alkaline Phosphatase 91 units/L ()?? 07/04/2022 22:50 Lipase 29 units/L ()?? 06/23/2022 10:53 AST (SGOT) 64 units/L (High)?? 07/04/2022 22:50 ALT (SGPT) 30 units/L ()?? 07/04/2022 22:50 Bilirubin, Total 5.4 mg/dL (High)?? 07/04/2022 22:50 Bilirubin, Direct 2.3 mg/dL (High)?? 06/27/2022 01:21 Bilirubin, Indirect 1.6 mg/dL (High)?? 06/27/2022 01:21 Vitamin B12 Level 1178 pg/mL ()?? 06/25/2022 01:56 Folic Acid Level 5.7 ng/mL ()?? 06/25/2022 01:56 Lactate 2.1 mmol/L ()?? 07/04/2022 22:50 Iron Level 60 mcg/dL ()?? 06/25/2022 01:56 Iron Binding Capacity, Unsaturated 31 mcg/dL (Low)?? 06/25/2022 01:56 Iron Binding Capacity, Estimated Total 91 mcg/dL (Low)?? 06/25/2022 01:56 % Iron Saturation 66 % (High)?? 06/25/2022 01:56 Ferritin Level 400 ng/mL (High)?? 06/27/2022 16:18 C-Reactive Protein 2.6 mg/dL (High)?? 07/06/2022 05:07 ?? COAG INR 1.9 (High)?? 06/29/2022 07:02 Protime (PT) 19.5 seconds (High)?? 06/29/2022 07:02 ?? HEME OTHER Hold Lavender Top SPECIMEN DISCARDED AFTER 24 HOURS. ()?? 07/06/2022 05:07 Hold Blue Top SPECIMEN DISCARDED AFTER 4 HOURS. ()?? 06/23/2022 10:53 ?? IMMUNOLOGY GENERAL Jfjvp-0-Uympnoknkes 127 mg/dL ()?? 06/26/2022 01:00 Ceruloplasmin 9 mg/dL (Low)?? 06/26/2022 01:00 IgG 2141 mg/dL (High)?? 06/26/2022 01:00 Transferrin 67 mg/dL (Low)?? 06/27/2022 16:18 Haptoglobin 20 mg/dL (Low)?? 06/30/2022 05:37 Anti-Nuclear Antibody Screen NEGATIVE ()?? 06/25/2022 01:56 Smooth Muscle Ab 12 ()?? 06/29/2022 07:02 ? MISC. CHEMISTRY Ammonia, Venous 44 ??mole/L ()?? 07/06/2022 05:07 Copper Level 40 (Low)?? 06/26/2022 07:41 Hold Green Top SPECIMEN DISCARDED AFTER 1 WEEK ()?? 06/23/2022 10:53 Procalcitonin 0.16 ng/mL ()?? 07/04/2022 22:50 ?? SEROLOGY INF DISEASE Anti Hepatitis A IgM NEGATIVE (N)?? 06/26/2022 01:00 Hepatitis B Surface Antigen NEGATIVE (N)?? 06/26/2022 01:00 Hepatitis B Core Ab, IgM NEGATIVE ()?? 06/26/2022 01:00 Hepatitis C Ab NEGATIVE (N)?? 06/26/2022 01:00 HIV 4th Generation Ab-Ag Result NEGATIVE (N)?? 06/26/2022 01:00 ? UA/URINALYSIS Appear/Color, Urine YELLOW ()?? 07/04/2022 23:10 Clarity CLEAR (N)?? 07/04/2022 23:10 Specific [place], Urine 1.016 ()?? 07/04/2022 23:10 pH, Urine 8.5 (High)?? 07/04/2022 23:10 Albumin, Urine TRACE (Abnormal)?? 07/04/2022 23:10 Glucose, Urine NEGATIVE (N)?? 07/04/2022 23:10 Ketones, Urine NEGATIVE (N)?? 07/04/2022 23:10 Bilirubin, Urine NEGATIVE (N)?? 07/04/2022 23:10 Hemoglobin, Urine NEGATIVE (N)?? 07/04/2022 23:10 Nitrite, Urine NEGATIVE (N)?? 07/04/2022 23:10 Leukocyte, Urine NEGATIVE (N)?? 07/04/2022 23:10 Urobilinogen >12 mg/dL (Abnormal)?? 07/04/2022 23:10 WBC's, Urine 1 /HPF ()?? 07/04/2022 23:10 RBC's, Urine 1 /HPF ()?? 07/04/2022 23:10 Bacteria HEAVY HPF (Abnormal)?? 06/23/2022 18:32 Squamous Epith 1 /HPF ()?? 07/04/2022 23:10 Mucus HEAVY /LPF ()?? 06/23/2022 18:32 Hold Urine Culture Testing available 48 hours from time of collection. ()?? 06/23/2022 18:32 Culture Indication CULTURE NOT INDICATED ()?? 07/04/2022 23:10 ? URINE OTHER Collection Period, Urine 24 hrs ()?? 06/27/2022 09:40 Volume, Urine 750 mLs ()?? 06/27/2022 09:40 Copper, Urine 79 ()?? 06/27/2022 09:40 Copper, Urine 24 Hr 59 (High)?? 06/27/2022 09:40 Copper/Creat Ratio, Urine 34 ()?? 06/27/2022 09:40 Creatinine, ??Urine 2.32 ()?? 06/27/2022 09:40 Urine Volume 24Hr 750 ()?? 06/27/2022 09:40 ? VIROLOGY COVID-19 by RT-PCR NEGATIVE ()?? 06/25/2022 15:10 COVID-19 PCR Specimen Source NASAL ()?? 07/03/2022 08:00 COVID-19 PCR Result NEGATIVE ()?? 07/03/2022 08:00 ? Microbiology ?? COVID-19 (2019 Novel Coronavirus) PCR?? Completed?? Source: Nasal Body Site: Nose Collected Dt/Tm: 06/23/2022 20:20 Last Updated Dt/Tm: 06/24/2022 03:37 Urine Culture?? Completed?? Source: Urine Clean Catch Body Site: ?? Collected Dt/Tm: 06/26/2022 14:55 Last Updated Dt/Tm: 06/26/2022 14:55 ?SPECIMEN DESCRIPTION : URINE CLEAN CATCH/MIDSTREAMSPECIAL REQUESTS : NONECULTURE : NO GROWTHREPORT STATUS : FINAL 06/27/2022 COVID-19 (2019 Novel Coronavirus) PCR?? Completed?? Source: Nasal Body Site: Nose Collected Dt/Tm: 06/29/2022 06:08 Last Updated Dt/Tm: 06/29/2022 12:44 COVID-19 (2019 Novel Coronavirus) PCR?? Completed?? Source: Nasal Body Site: Nose Collected Dt/Tm: 07/03/2022 07:30 Last Updated Dt/Tm: 07/03/2022 15:01 ? Imaging(s) ?US Doppler Ext Lower Venous Bilat ?? 06/27/2022 14:03??by Raul Bolanos MD ?IMPRESSION: ?? No evidence of deep venous thrombosis. ?CT Abdomen and Pelvis W/O Contrast ?? 07/04/2022 23:47??by Cristy Deluna MD ? IMPRESSION: ?? 1. Small bilateral pleural effusions, right greater than left with associated atelectasis. 2. Cirrhotic morphology of the liver with evidence of portal hypertension. Small volume ascites surrounding the liver, spleen, and within the right lower quadrant of the abdomen. 3. Mild splenomegaly. ? 35_ minutes spent on discharge * Francois DOUGLASS, Fabian: PERFORM Event Display: Discharge/Transfer Note Hospital Authored Date: [id number] Patient did not leave yesterday due to pending insurance authorization,??discharge summary was dictated yesterday???07/06.?? Also to go to short-term rehab,??being discharged??to short-term rehab today with??medication as??as dictated * Maryann Foster RN: PERFORM, SIGN, VERIFY Event Display: Case Management Discharge Plan Authored Date: Patient: DESHAUN GOODRICH Age: 61 years Sex: Male : 1960 Associated Diagnoses: None Author: Maryann Foster RN Discharge Plan Case Management Discharge Plan : Case Management Discharge Plan Data 07/06/2022 9:23 EDT Discharge Level of Care at Discharge retirement facility Discharge Nursing Homes/Rehab Facilities [facility] Discharge Transportation Arranged [facility] [address] [place] [phone] Discharge Arranged Transport Date/Time 07/06/2022 15:30 Mode of Transportation Arranged Ambulance Name of Agency #1 [facility] Service Categories #1 Physical Therapy, Long Term * Eve DOUGLASS, aR Retana: REVIEW Event Display: Serological Investigation Report Authored Date: [id number] Patient Name: DESHAUN GOODRICH Lab Patient : 1960 (Age: 61) Collection Date: 06/30/2022 Accession Date: 06/30/2022 Sign Out Date: 07/04/2022 Tissue Source: 1:TMS Direct Antiglobulin Test Final Diagnosis: SEROLOGICAL INVESTIGATION/CONSULTATION REPORT REASON FOR REPORT: Results from Direct Antiglobulin Testing Clinical Data: Diagnosis: Anemia Previous History: Serological Testing Problems: No known serological testing problems at [facility] Transfusion History: Multiple red cell transfusions, last two units of Red Blood Cells on 09/28/2008. LABORATORY INVESTIGATION RED CELL STUDIES DIRECT ANTIGLOBULIN TEST: Negative with Polyspecific, Anti-IgG and [id number]-[id number] antisera ASSESSMENT: Antibody or complement binding to the red blood cell is undetectable using conventional antiglobulin testing. Absence of immunoglobulin or complement binding to the red blood cell membrane usually implies non-immune causes for the anemia. Clinical correlation and pertinent additional laboratory testing are advised. It should be noted that a subset of patient with immune mediated hemolysis, however, can have a negative direct antiglobulin test (i.e., Ramos??? Negative Autoimmune Hemolytic Anemia). RECOMMENDATIONS: Continued hemolysis of unknown etiology, or suspicion of enhanced immune mediated red blood cell clearance are indications for repeat and/or more sensitive immunoserologic investigations. For a further discussion of this report, please contact the Transfusion Medicine Service at [phone]. Primary Pathologist:Aaron Molina, Ph.D, M.D. electronically signed out by: Aaron Molina, Ph.D, M.D. / TREVOR Phone #: [phone], On-Call Pathologist: [id number] * RADHA Atkinson S: MICHAEL England MD, Jordan W: VERIFY Mirza Gardiner DO L: SIGN Event Display: Result: Authored Date: US Abdominal Doppler Comp, US RUQ Reason: GI request; Clinical Question(s): Thrombosis TECHNIQUE: Color flow and duplex Doppler analysis of abdominal vasculature. Right upper quadrant ultrasound also performed. COMPARISON: CT abdomen and pelvis 06/23/2022. FINDINGS: Study is limited by bowel gas and patient body habitus. Vascular Findings: Arteries: Hepatic arteries: Arterial waveforms in the visualized hepatic arteries are normal. Hepatic artery angle-corrected velocity: 138.9 cm/sec. Hepatic artery resistive index: 0.7 (Normal range: 0.55-0.7). Veins: Portal veins: The main portal vein appears patent but with reversal of flow. No definite visualizedthrombosis. The right and left portal veins are not visualized. Portal vein angle-corrected velocity: -24.6 cm/sec (Normal range: 16-40 cm/sec). Hepatic veins: The left hepatic vein is not visualized. The right and middle hepatic veins are patent with appropriate hepatofugal flow and phasic form. Inferior vena cava: IVC is patent with appropriate direction of flow. Splenic vein: Patent splenic vein is seen only at the hilum. Spleen length: 16.2 cm. Additional Findings: Liver: Echogenic and difficult to penetrate hepatic parenchyma, limiting evaluation for focal lesions. Nodular hepatic contour. Gallbladder: Status post cholecystectomy. Biliary Tree: No intrahepatic or extrahepatic bile duct dilation is identified. Common duct: 1.0 cm. Pancreas: Obscured by overlying bowel gas. Right kidney: Limited evaluation. Normal parenchymal echotexture and thickness. No hydronephrosis, stone or mass. IMPRESSION: 1. Limited study with reversal flow seen within the main portal vein although no discrete thrombus is seen and the vasculature appears patent on recent CT abdomen and pelvis 06/23/2022. Cannot excludepartial thrombosis of the portal vein. If there is clinical concern for portal vein thrombosis, confirmation with CT is suggested. 2. Cirrhotic liver morphology and sequela of portal hypertension including small volume ascites andsplenomegaly. I have personally reviewed the images and I agree with this report. 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 Blood in urine and stool starting 1.5 weeks; Reason: Shortness of Breath; Clinical Question(s): Pneumonia. COMPARISON: 06/30/2021. FINDINGS: LUNGS AND PLEURA: Trace bilateral pleural effusions are new. No pleural effusion. No pneumothorax. HEART, MEDIASTINUM AND KEVIN: Heart is normal in size. Normal mediastinal and hilar contour. BONES AND SOFT TISSUES: No acute abnormality. IMPRESSION: Trace effusions are new. Otherwise clear lungs. WSN: [id number] Ordering Physician: Billie Chou MD Dictated By: Emmanuel Cam MD Dictated Date/Time: 06/23/22 11:39 a Reviewed By: Emmanuel Cam MD Signed By: Emmanuel Cam MD Signed Date/Time: 06/23/22 11:39 am Transcribed By: CSB Transcribed Date/Time: 06/23/22 11:33 am History and physical note * Mahnaz Landa MD: PERFORM, MODIFY Event Display: History and Physical Hospital Authored Date: [id number] Patient: ??DESHAUN GOODRICH ? Age:??61 Years?Sex:??Male?:??1960?? History of Present Illness ?? 61-year-old male with a past medical history of hypertension, diabetes, JAKOB, anxiety, chronic anemia, alcohol use, BPH, GERD, restless leg syndrome presents today with epigastric pain bright red blood per rectum. ??She reports that he has been having??red-colored urine and red-colored stool for thelast 1 month. ??Patient reports that??he had??stools with mostly blood with some stool. ??Patient denied melena.?Patient did feel fatigued but denies having any lightheadedness. ??Patient reports ibuprofen use 1 time in the last 6 months. ??Patient reports that??he only had a glass of wine??6 ofmonths ago. ??No active alcohol use.?Patient reports epigastric??pain??which is burning and radia tion, radiating to??chest.Patient additionally has suprapubic tube for comfort., urinary frequency,urgency and hematuria. ?Patient denies any fevers, chills, chest pain, cough, shortness of breath,??nausea, vomiting. ? In the emergency department, patient has been hemodynamically stable, afebrile, lab work showed hemoglobin of 10 on 06/22/2022, trended down to 8.7 as of 06/24/2022, INR 1.7, pro time 17.3, albumin 1.9, AST 68, ALT 33, total bili 5.2, lactate of 1.9, CT abdomen pelvis was obtained showed splenomegaly, mild ascites, varices in the left abdomen/pelvis, small bilateral pleural effusions, hepatic steatosis, extensive subcutaneous abdominal pelvic multiple fat induration stranding consistent with edema.?? Surgery was consulted, given history of bariatric surgery, no surgical intervention, GI consult??.patient is??admitted to the ??observation unit for further management Review of Systems A full review of systems was completed and is otherwise negative except as mentioned in history of present illness. Objective ? Vital Signs?? Temperature: 97.7 DegF (06/24/22 03:42:00) Temperature Route: Oral (06/24/22 03:42:00) Pulse Rate: 85 bpm (06/24/22 03:42:00) Respiratory Rate: 20 br/min (06/24/22 03:42:00) Systolic Blood Pressure: 101 mm Hg (06/24/22 03:42:00) Diastolic Blood Pressure: 58 mm Hg (06/24/22 03:42:00) Blood pressure sites: Arm, right (06/24/22 03:42:00) Mean Arterial Pressure: 72 mm Hg (06/24/22 03:42:00) Pulse Pressure: 43 mm Hg (06/24/22 03:42:00) Oxygen Saturation: 100 % (06/24/22 03:42:00) Mode of Delivery (Oxygen): Room air (06/24/22 03:42:00) Early Warning Score:??11??Critical (06/24/22 04:24:16) ? Physical Exam Constitutional: Alert, in no acute distress. Head EENT: Extraocular muscle movement intact.??Moist mucous membranes.??mild scleral icterus Neck: Supple. No JVD. Respiratory: Clear to auscultation. No wheezing or crackles. No use of accessory muscles. Cardiovascular: S1S2 regular. No murmurs, rubs or gallops. Gastrointestinal: Abdomen soft, non-tender, non-distended. Normal bowel sounds. Genitourinary: No CVA tenderness. Extremities: No lower extremity pitting??edema. No cyanosis or clubbing. Neurologic: AAOx3, Speech normal. No focal neurological deficits. mild tremors, no asterixis Skin: No rash. Psychiatric: Normal mood and affect Assessment/Plan Diagnoses Abdominal pain ??(R10.9) Alcoholic liver disease ??(K70.9) Anemia ??(D64.9) Anxiety ??(F41.9) BPH (benign prostatic hyperplasia) ??(N40.0) GI bleed ??(K92.2) JAKOB (obstructive sleep apnea) ??(G47.33) Peripheral edema ??(R60.9) Restless leg syndrome ??(G25.81) Type 2 diabetes mellitus ??(E11.9) UTI (urinary tract infection) ??(N39.0) ?? Assessment:??61-year-old male with a past medical history of hypertension, diabetes, JAKOB, anxiety, chronic anemia, alcohol use, BPH, GERD, restless leg syndrome noncompliant with medication presents today with epigastric pain bright red blood per rectum. w/u showed Hb 10 which downtrended to 8.8 over the course in ED,??ct showed ascites, varcies, admitted for acute blood loss anemia ?? Abdominal pain (R10.9):??: ??GI bleed (K92.2):??: ??Anemia (D64.9):??of 10 on 06/22/2022, trended down to 8.7 as of 06/24/2022, asymptomatic, has epigastric pain, ct scan shows varices, acute gib due to slow variceal bleed, rare -surgery was consulted??due to history of gastric bypass surgery,??no surgical intervention, recommended GI intervention -IV PPI -Received IV ceftriaxone, will continue -IV octreotide -N.p.o. -GI consult ?? cirrhosis Alcoholic liver disease (K70.9):??Last drink about 6 months ago, has hepatic steatosis, elevated liver enzymes, elevated INR, low albumin s/o liver failure kartiktent has mild ascites, varices and subcutaneous edema due to low albumin -patient appears clinically dry, intravascular dry and third spacing due to low albumin -will consider lasix and spironolactone once patient is no longer npo -check BAL ? UTI (urinary tract infection) (N39.0):??suprapubic discomfort and urinary frequency and urgency -received iv ceftriaxone in ed, continue -follow up with urine cx ?? Type 2 diabetes mellitus (E11.9):??Patient denies any history of diabetes,??this was listed in the previous history, -Check A1c ?? JAKOB (obstructive sleep apnea) (G47.33):??No longer on CPAP??after bariatric surgery ?? BPH (benign prostatic hyperplasia) (N40.0):??Reports he had a??prostate checked about a year ago ?? Restless leg syndrome (G25.81):??Has not taken any medicine in 6 months,??reports no issues with restless leg ?? Peripheral edema (R60.9):??patient has pitting edema with induration in the both calves, -US to r/o DVT ?? Anxiety (F41.9):??Not on medications ?? VTE Prophylaxis:??scd ?VTE Prophylaxis Assessment:??VTE Prophylaxis Ordered ?? Code Status:??patient wishes to be full code ?Order Code Status:??Code Status Ordered ?? Ongoing Medical Necessity:??gib , Gi consult ?? Discharge Planning:??Pending clinical course ?? This note was created using [employer] speech recognition software, there may be unwanted word substitution, typographical errors or grammatical error, an attempt at proofreading has been made to minimize errors. please call if there are any questions regarding plan of care. ? Histories Allergies Allergies ?(Active and Proposed Allergies Only) Lactose? (Severity: Unknown severity, Onset: Unknown) Latex? (Severity: Persistent Moderate, Onset: Unknown) ?Reactions: rash ? Past Medical History/Problem List Active Problems??(4) Diverticulitis Inguinal hernia Lactose intolerance Obese class II ? Past Surgical History Laparoscopic cholecystectomy: 02/28/18 Laparoscopic Repair of Left Indirect Inguinal Hernia with Graft or Prosthesis: 11/01/10 Robotic Laparoscopic Gastric Bypass ? Social History Alcohol Details:??Use: Past. ??Other: Denies drinking for 2 years since going to rehab after alcohol withdrawal and heavy drinking. Employment/School Details:??Status: Retired. 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 Sexual Details:??Sexually involved in last 6 months: No. ??Current or history of sexual dysfunction: Difficulty obtaining or maintaining erection. Substance Abuse Details:??Use: Never. Tobacco Details:??Use: Never (less than 100 in lifetime). ? Family History family hisotry of liver disease in brother who is ?? Medications Home Medications not taking any medications for the last 6 months ?? Results Recent Labs BLOOD COUNT & DIFF WBC 3.5 k/mm3 (Low)?? 06/24/2022 03:34 RBC 2.48 m/mm3 (Low)?? 06/24/2022 03:34 Hgb 9.1 Gm/dL (Low)?? 06/24/2022 03:34 Hct 27.8 % (Low)?? 06/24/2022 03:34 MCV 112.1 femtoliters (High)?? 06/24/2022 03:34 MCH 36.7 pg (High)?? 06/24/2022 03:34 MCHC 32.7 g/dL (Low)?? 06/24/2022 03:34 Platelet Count 71 k/mm3 (Low)?? 06/24/2022 03:34 RDW-SD 78.7 femtoliters (High)?? 06/24/2022 03:34 MPV 10.9 femtoliters ()?? 06/24/2022 03:34 Nucleated RBC (Automated) 0.0 #/100 WBC'S ()?? 06/24/2022 03:34 Abs. NRBC 0.0 k/mm3 ()?? 06/24/2022 03:34 Abs. Neut 3.2 k/mm3 ()?? 06/23/2022 10:53 Abs. Lymph 1.4 k/mm3 ()?? 06/23/2022 10:53 Abs. Falls 0.7 k/mm3 ()?? 06/23/2022 10:53 Abs. Eo 0.1 k/mm3 ()?? 06/23/2022 10:53 Abs. Baso 0.0 k/mm3 ()?? 06/23/2022 10:53 Neut % 58.6 % ()?? 06/23/2022 10:53 Lymph % 25.8 % ()?? 06/23/2022 10:53 Falls % 12.9 % (High)?? 06/23/2022 10:53 Eos % 1.5 % ()?? 06/23/2022 10:53 Baso % 0.5 % ()?? 06/23/2022 10:53 Imm Gran 0.7 % ()?? 06/23/2022 10:53 Abs. Imm Gran 0.0 k/mm3 ()?? 06/23/2022 10:53 ?? CHEM GENERAL Sodium 136 mmol/L ()?? 06/24/2022 03:34 Potassium 4.1 mmol/L ()?? 06/24/2022 03:34 Chloride 106 mmol/L ()?? 06/24/2022 03:34 Bicarbonate Level 23 mmol/L ()?? 06/24/2022 03:34 Anion Gap 7 ()?? 06/24/2022 03:34 Glucose Level 81 mg/dL ()?? 06/24/2022 03:34 BUN 10 mg/dL ()?? 06/24/2022 03:34 Creatinine-Blood 0.9 mg/dL ()?? 06/24/2022 03:34 Estimated GFR Creatinine 95 ML/MIN/1.73 M2 ()?? 06/24/2022 03:34 Calcium 7.6 mg/dL (Low)?? 06/24/2022 03:34 Protein, Total 5.1 Gm/dL (Low)?? 06/24/2022 03:34 Albumin 1.8 Gm/dL (Low)?? 06/24/2022 03:34 AG Ratio 0.5 ()?? 06/24/2022 03:34 Alkaline Phosphatase 93 units/L ()?? 06/24/2022 03:34 Lipase 29 units/L ()?? 06/23/2022 10:53 AST (SGOT) 56 units/L (High)?? 06/24/2022 03:34 ALT (SGPT) 28 units/L ()?? 06/24/2022 03:34 Bilirubin, Total 4.3 mg/dL (High)?? 06/24/2022 03:34 Lactate 1.9 mmol/L ()?? 06/23/2022 10:53 ?? COAG INR 1.7 (High)?? 06/23/2022 10:53 Protime (PT) 17.3 seconds (High)?? 06/23/2022 10:53 ?? HEME OTHER Hold Blue Top SPECIMEN DISCARDED AFTER 4 HOURS. ()?? 06/23/2022 10:53 ?? MISC. CHEMISTRY Hold Green Top SPECIMEN DISCARDED AFTER 1 WEEK ()?? 06/23/2022 10:53 ?? UA/URINALYSIS Appear/Color, Urine ORANGE ()?? 06/23/2022 18:32 Specific [place], Urine 1.039 (High)?? 06/23/2022 18:32 pH, Urine 6.5 ()?? 06/23/2022 18:32 Albumin, Urine 1+ (Abnormal)?? 06/23/2022 18:32 Glucose, Urine NEGATIVE (N)?? 06/23/2022 18:32 Ketones, Urine NEGATIVE (N)?? 06/23/2022 18:32 Bilirubin, Urine 1+ (Abnormal)?? 06/23/2022 18:32 Hemoglobin, Urine NEGATIVE (N)?? 06/23/2022 18:32 Nitrite, Urine NEGATIVE (N)?? 06/23/2022 18:32 Leukocyte, Urine 3+ (Abnormal)?? 06/23/2022 18:32 Urobilinogen 8 mg/dL (Abnormal)?? 06/23/2022 18:32 WBC's, Urine 106 /HPF (High)?? 06/23/2022 18:32 RBC's, Urine 2 /HPF ()?? 06/23/2022 18:32 Bacteria HEAVY HPF (Abnormal)?? 06/23/2022 18:32 Squamous Epith 1 /HPF ()?? 06/23/2022 18:32 Mucus HEAVY /LPF ()?? 06/23/2022 18:32 Hold Urine Culture Testing available 48 hours from time of collection. ()?? 06/23/2022 18:32 ?? VIROLOGY COVID-19 PCR Specimen Source NASAL ()?? 06/23/2022 20:29 COVID-19 PCR Result NEGATIVE ()?? 06/23/2022 20:29 ? EKG study * Event Display: ECG 12-Lead Authored Date: Please click on pdf link to open report * Event Display: ECG 12-Lead Authored Date: Ventricular Rate: 89 BPM Atrial Rate: 89 BPM P-R Interval: 130 ms QRS Duration: 92 ms Q-T Interval: 408 ms QTC Calculation(Bazett): 496 ms P [place]: 40 degrees R [place]: -15 degrees T [place]: 8 degrees Normal sinus rhythm Prolonged QT Abnormal ECG When compared with ECG of 22-JUN-2022 10:39, No significant change Confirmed by [facility] ([id number]) on 06/27/2022 8:36:08 AM [place]quin[place]: [facility] Progress [facility] * Beata SALCIDO, Funmi: PERFORM, SIGN, VERIFY Event Display: [facility] Authored Date: Patient: DESHAUN GOODRICH Age: 61 years Sex: Male : 1960 Associated Diagnoses: None Author: Beata SALCIDO, Funmi Findings Problem Related to Alteration in Gastrointestinal : Alteration in Gastrointestinal Func/new 07/05/2022 12:00 EDT Alteration in GI status Related to Liver Failure, Other: GIB Goals & Outcomes, Gastrointestinal Pt will maintain adequate GI function appropriate for pt, Ptwill maintain normal elimination patterns, Pt will resume/maintain adequate hemodynamic status, Pt will tolerate age appropriate diet prior to discharge Interventions, Gastrointestinal Assess/monitor abdomen for distention, tenderness, Assess/monitor abdominal girth & bowel function, Assess/monitor bowel pattern, bowel sounds, flatus, Assess/monitor number of bowel movements, Assess/monitor color, quantity, quality, consistency of stoo, Assess/monitor pt for nausea, vomiting, Assess/monitor effects of re-hydration, Assess/monitor intake &output, Assess if pt tolerating diet, DVT prophylaxis as ordered, Elevate HOB to facilitate lung expansion, prevent aspiration, Establish toileting schedule for patient, Taking PO: Encourage/monitor intake & swallowing ability, Provide info on community resources for education, support, Provide/ encourage oral care if NPO, Teach Pt/caregiver diet & give copy of dietary instructions, Teach Pt/caregiver on bowel elimination interventions, Teach Pt/caregiver re: importance of bowel regime, Teach Pt/caregiver re: nutritional intake & dietary restrict, Teach/encourage deep breath & cough exercises, Teach/encourage use of incentive spirometer BH Goals/Interventions, Gastrointestinal Yes Gastrointestinal, Problem Start 06/24/2022 18:00 Reviewed plan with, Gastrointestinal Patient Patient Progression, Gastrointestinal Pt progressing according to plan . Evaluation pt a&o to self only. Pt only able to tell this RN his name, is very confused and unsteady on his feet. MD aware. one assist to the bathroom, requires frequent reassurance and reorientation. VSS, afebrile. denies any pain. IV antibiotics running for BLE cellulitis. Pt given lactulose per MAY, had 5 large BMs this shift. Daughter updated via phone. bed alarm on. bed locked and in lowest position. call mejia within reach. please see cis for further assessment details.. Discharge Information Rehabilitation Discharge : Rehab Discharge Index 07/04/2022 13:19 EDT Cane: distance 20-50 06/30/2022 13:46 EDT Comments on treatment indicated OT for ADL's; functional mobility; UE strengthening; safety Full chart review completed Yes Hospital course See comment 06/30/2022 6:42 EDT Comments on treatment indicated 61 M admitted for acute blood loss anemia. WBAT. Skilled PT for amb c LRAD, transfers, strength, balance, safety. Rec rehab Distance pt will ambulate > 10 feet c RW Full chart review completed Yes Other findings see comment Plan of care PT Gait training, Transfer training, Therapeutic exercise, Functional Activities, Balance training, Neuromuscular education * Francois DOUGLASS, Fabian: PERFORM Event Display: Progress Note Hospital Authored Date: [id number] Patient: ??DESHAUN GOODRICH ? Age:??61 Years?Sex:??Male?:??1960?? Subjective Follow-up on GI bleed, hypertension cephalopathy. ??History of liver cirrhosis ?? Patient seen and evaluated in a.m. Reviewed lab, medication, vitals, Patient was found to be obtunded yesterday, ammonia was 125, high Increase lactulose dose, added rifaximin Also has got bilateral lower extremity cellulitis, had fever yesterday ?? Review of Systems More awake, alert today?? not in pain or distress No nausea vomiting or diarrhea Abdomen distended diet not much discomfort Bilateral lower extremity warm to touch with??tenderness???increased ?? Rest of the system???as above otherwise negative Objective Measurements?? Weight: 120.3 kg (06/26/22) ?? Vital Signs?? Temperature: 99.6 DegF (07/05/22 07:47:00) Temperature Route: Oral (07/05/22 07:47:00) Pulse Rate: 88 bpm (07/05/22 07:47:00) Respiratory Rate: 16 br/min (07/05/22 07:47:00) Systolic Blood Pressure: 101 mm Hg (07/05/22 07:47:00) Diastolic Blood Pressure:??39 mm Hg??Low (07/05/22 07:47:00) Blood pressure sites: Arm, left (07/05/22 07:47:00) Mean Arterial Pressure: 60 mm Hg (07/05/22 07:47:00) Pulse Pressure: 62 mm Hg (07/05/22 07:47:00) Oxygen Saturation: 100 % (07/05/22 07:47:00) Mode of Delivery (Oxygen): Room air (07/05/22 07:47:00) Early Warning Score: 6 (07/05/22 07:48:01) ? Intake/Output? 06/23 20:52 07/05 07:00 07/04 07:00 07/03 07:00 07/02 07:00 ?? 07/05 15:05 07/05 15:05 07/05 06:59 07/04 06:59 07/03 06:59 Intake ? 6332 ?220 ?360 ?0 ? 1057 Output ?870 ?0 ?0 ?0 ?0 Net Total ? 5462 ?220 ?360 ?0 ? 1057 ? Urine Count ? 20 ?0 ?5 ?0 ?7 Diaper Count ?3 ?1 ?2 ?0 ?0 Emesis Count ?1 ?0 ?0 ?0 ?0 ? Physical Exam General:??Coherent and more awake today??not in pain, not in?? acute cardiopulmonary distress. Ear, Nose and Throat:??Oropharynx clear, mucous membranes moist.??no thrush Neck:??Supple, Full range of motion. Respiratory:??Clear to auscultation??. No wheezing, rales or rhonchi. Cardiovascular:??Heart sounds normal. Regular rate and rhythm, no murmurs Gastrointestinal:??Abdomen soft, non-tender, distended. Normal bowel sounds.. Neurologic:??Cranial nerves II-XII grossly intact. No focal neurological deficits.?? Skin:??No rashes or lesions. ??Bilateral lower extremity edema, tense,??erythema, tender to touch, warm to touch,??no blisters Musculoskeletal:??No cyanosis or clubbing. No gross deformities. _ Home Medications Atorvastatin (atorvastatin 80 mg oral tablet)?1?tab(s)?80?Milligram?By Mouth?Daily at bedtime BuPROpion?300?Milligram?By Mouth?Daily Cyanocobalamin (cyanocobalamin 100 mcg oral tablet)?100?Microgram?1?tablet?By Mouth?Daily Dicyclomine (dicyclomine 10 mg oral capsule)?1?capsule?10?Milligram?By Mouth?3 times a day after meals?for 7?Days Docusate (Colace sodium 100 mg oral capsule)?100?Milligram?1?capsule?By Mouth?2 times a day?as needed?with plenty of water?for constipation Ferrous Sulfate (ferrous sulfate 325 mg oral enteric coated tablet)?325?Milligram?1?tablet?By Mouth?Daily Folic Acid (folic acid 1 mg oral tablet)?1?Milligram?1?tablet?By Mouth?Daily?for 30?Days Losartan (losartan 25 mg oral tablet)?25?Milligram?1?tablet?By Mouth?Daily Midodrine (midodrine 2.5 mg oral tablet)?See Instructions?1 tablet By Mouth 2 times a day after waking and 8 hours later in the afternoon. Do not lay down for any extended time with medication.If PM nap needed do no take second dose. Multivitamin With Iron (Iron 100 Plus)?1?tab(s)?By Mouth?Daily Nitroglycerin (nitroglycerin 0.3 mg/hr transdermal film, extended release)?1?patch(es)?Topically?Daily at bedtime?Remove upon waking, maintain a nitrate-free interval of 10 to 12 hours Pantoprazole (Protonix 40 mg oral delayed release tablet)?1?tab(s)?40?Milligram?By Mouth?2 times a day?for 30?Days Ropinirole (rOPINIRole 1 mg oral tablet)?1?tab(s)?1?Milligram?By Mouth?Daily at bedtime ? Inpatient Medications Medications (20) Active SCHEDULED: (14) Albumin Human 25% IVPB (50 mL) (Albumin 25% 50 mL Bolus) ??100 mL, IVPB, 2 times a day Furosemide 20 mg Tablet (Lasix 20 mg oral tablet) ??20 mg, By Mouth, Daily Lactulose 20 Gm/30mL Syrup (lactulose 10 gm/15 ml oral syrup) ??30 Gm 45 mL, By Mouth, 3 times a day Lidocaine 5% Topical Patch (Lidocaine 5% Patch) ??3 each, Topically, Daily Multivitamin Therapeutic / Minerals Tablet (Multivit Therapeutic/Minerals Tablet) ??1 tablet, By Mouth, Daily NaCl 0.9% Flush 3ml (NaCL 0.9% Flush) ??3 mL, IV Push, Every 8 hours Pantoprazole 40 mg EC Tablet (pantoprazole 40 mg oral delayed release tablet) ??40 mg, By Mouth, 2 times a day Piperacillin/Tazobactam 3.375 Gm Inj (Zosyn Extended IVPB) ??3.375 Gm, IVPB, Every 8 hours Remove Patch (Remove Lidocaine Patch) ??3 each, Topically, Daily at bedtime Rifaximin 550 mg Tab (RifAXIMIN Tablet) ??550 mg, By Mouth, 2 times a day Simethicone 80 mg Chewable Tablet (simethicone 80 mg oral tablet, chewable) ??80 mg, Chew, 3 times a day Spironolactone 25 mg Tablet (spironolactone 25 mg oral tablet) ??50 mg, By Mouth, Daily Sucralfate 1 Gm Tablet (Carafate 1 gm oral tablet) ??2 Gm, By Mouth, 3 times a day before meals andbedtime Thiamine 100 mg Tablet (thiamine 100 mg oral tablet) ??100 mg, By Mouth, Daily CONTINUOUS: (0) PRN: (6) Acetaminophen 160 mg/5 mL Susp UD (Acetaminophen 160 mg / 5 mL Liquid) ??500 mg 15.63 mL, By Mouth,Every 6 hours Lidocaine Viscous/Maalox Plus/Diphenhydramine Suspension (Magic Mouth Wash) ??10 mL, Swish and Swallow, 3 times a day before meals and bedtime NaCl 0.9% Flush 3ml (NaCL 0.9% Flush) ??3 mL, IV Push, Every 8 hours Ondansetron 2mg/mL Inj (2mL Vial) (Ondansetron Inj) ??4 mg, IV Push, Every 6 hours Polyethylene Glycol 17 Gm Powder (MiraLax Powder) ??17 Gm 1 pack/packet, By Mouth, Daily Senna Tablet (Senna 8.6 mg oral tablet) ??17.2 mg 2 tablet, By Mouth, Daily ? Results Recent Labs BLOOD COUNT & DIFF WBC 6.7 k/mm3 ()?? 07/04/2022 22:50 RBC 2.67 m/mm3 (Low)?? 07/04/2022 22:50 Hgb 9.4 Gm/dL (Low)?? 07/04/2022 22:50 Hct 29.1 % (Low)?? 07/04/2022 22:50 MCV 109.0 femtoliters (High)?? 07/04/2022 22:50 MCH 35.2 pg (High)?? 07/04/2022 22:50 MCHC 32.3 g/dL (Low)?? 07/04/2022 22:50 Platelet Count 77 k/mm3 (Low)?? 07/04/2022 22:50 RDW-SD 73.3 femtoliters (High)?? 07/04/2022 22:50 MPV 10.7 femtoliters ()?? 07/04/2022 22:50 Nucleated RBC (Automated) 0.0 #/100 WBC'S ()?? 07/04/2022 22:50 Abs. NRBC 0.0 k/mm3 ()?? 07/04/2022 22:50 Abs. Neut 4.5 k/mm3 ()?? 07/04/2022 22:50 Abs. Lymph 1.5 k/mm3 ()?? 07/04/2022 22:50 Abs. Falls 0.6 k/mm3 ()?? 07/04/2022 22:50 Abs. Eo 0.0 k/mm3 ()?? 07/04/2022 22:50 Abs. Baso 0.0 k/mm3 ()?? 07/04/2022 22:50 Neut % 67.4 % ()?? 07/04/2022 22:50 Lymph % 22.6 % ()?? 07/04/2022 22:50 Falls % 8.9 % ()?? 07/04/2022 22:50 Eos % 0.3 % ()?? 07/04/2022 22:50 Baso % 0.2 % ()?? 07/04/2022 22:50 Imm Gran 0.6 % ()?? 07/04/2022 22:50 Abs. Imm Gran 0.0 k/mm3 ()?? 07/04/2022 22:50 ?? CHEM GENERAL Sodium 137 mmol/L ()?? 07/04/2022 22:50 Potassium 4.3 mmol/L ()?? 07/04/2022 22:50 Chloride 107 mmol/L ()?? 07/04/2022 22:50 Bicarbonate Level 21 mmol/L (Low)?? 07/04/2022 22:50 Anion Gap 9 ()?? 07/04/2022 22:50 Glucose Level 92 mg/dL ()?? 07/04/2022 22:50 Glucose, POC 103 mg/dL (High)?? 07/04/2022 21:04 BUN 10 mg/dL ()?? 07/04/2022 22:50 Creatinine-Blood 1.1 mg/dL ()?? 07/04/2022 22:50 Estimated GFR Creatinine 75 ML/MIN/1.73 M2 ()?? 07/04/2022 22:50 Calcium 8.4 mg/dL (Low)?? 07/04/2022 22:50 Magnesium 2.0 mg/dL ()?? 07/04/2022 22:50 Protein, Total 5.7 Gm/dL (Low)?? 07/04/2022 22:50 Albumin 2.0 Gm/dL (Low)?? 07/04/2022 22:50 Alkaline Phosphatase 91 units/L ()?? 07/04/2022 22:50 AST (SGOT) 64 units/L (High)?? 07/04/2022 22:50 ALT (SGPT) 30 units/L ()?? 07/04/2022 22:50 Bilirubin, Total 5.4 mg/dL (High)?? 07/04/2022 22:50 Lactate 2.1 mmol/L ()?? 07/04/2022 22:50 ?? MISC. CHEMISTRY Ammonia, Venous 125 ??mole/L (High)?? 07/04/2022 22:50 Procalcitonin 0.16 ng/mL ()?? 07/04/2022 22:50 ?? UA/URINALYSIS Appear/Color, Urine YELLOW ()?? 07/04/2022 23:10 Clarity CLEAR (N)?? 07/04/2022 23:10 Specific [place], Urine 1.016 ()?? 07/04/2022 23:10 pH, Urine 8.5 (High)?? 07/04/2022 23:10 Albumin, Urine TRACE (Abnormal)?? 07/04/2022 23:10 Glucose, Urine NEGATIVE (N)?? 07/04/2022 23:10 Ketones, Urine NEGATIVE (N)?? 07/04/2022 23:10 Bilirubin, Urine NEGATIVE (N)?? 07/04/2022 23:10 Hemoglobin, Urine NEGATIVE (N)?? 07/04/2022 23:10 Nitrite, Urine NEGATIVE (N)?? 07/04/2022 23:10 Leukocyte, Urine NEGATIVE (N)?? 07/04/2022 23:10 Urobilinogen >12 mg/dL (Abnormal)?? 07/04/2022 23:10 WBC's, Urine 1 /HPF ()?? 07/04/2022 23:10 RBC's, Urine 1 /HPF ()?? 07/04/2022 23:10 Squamous Epith 1 /HPF ()?? 07/04/2022 23:10 Culture Indication CULTURE NOT INDICATED ()?? 07/04/2022 23:10 ? Assessment/Plan ?? 61-year-old male with a past medical history of hypertension, diabetes, JAKOB, anxiety, chronic anemia, alcohol use, BPH, GERD, restless leg syndrome noncompliant with medication presents today with epigastric pain bright red blood per rectum. w/u showed Hb 10 which downtrended to 8.8 over the coursein ED,??ct showed ascites, varices, admitted for acute blood loss anemia. pt says that he has been sober for 6 months but pts daughter believes that he is actively drinking until current hospitalization.?? Patient was found to be obtunded on 07/04, found to have hepatic encephalopathy with ammonia of 125. ? Abdominal pain (R10.9):??: GI bleed (K92.2):??: Dysphagia/ Odynophagia Esophagitis/ Esophageal dysmotility Surgery consulted for history of Roun En Y, signed off. GI consulted, s/p EGD, colonoscopy. 06/26: Multiple long linear ulcers and erosions in the esophagus.?? No evidence of ulceration at Gracy-en-Y gastric pouch.?? Colonoscopy with internal and external hemorrhoids with moderate diverticulosis. - Barium swallow showed??findings consistent with linear esophageal erosions in the mid and distal esophagus,??Mild to moderate esophageal dysmotility. Expected postoperative anatomy status post gastric bypass is unchanged. - GI recommended PPI BID?? for 8 weeks, cont carafate slurry 2 g mixed with 10 cc of water taken bymouth 3 times a day x 3 weeks - Swallow therapy??evaluated the patient and recommended no issues with oropharyngeal swallow , however he had emesis during evaluation. c/o substernal pain and globus sensation - GI recommend further w/u for dysmotility after??treating esophagitis . will need repeat endoscopyin few weeks. ? 09/08 - Pt tolerated?? dental soft diet . will cont same for now -?? Biopsy results from EGD unremarkable. - Supportive care, Antiemetics, Bowel regimen prn - GI f/u as outpt 10/16. -Continue PPI, sucralfate ? Cirrhosis Hyperbilirubinemia Alcoholic liver disease Hepatic and cephalopathy???07/04?? Hypoalbuminemia?? Last drink about 6 months ago per pt, has hepatic steatosis, elevated liver enzymes, elevated INR, low albumin s/o liver failure, has mild ascites, varices and subcutaneous edema due to low albumin Cirrhosis w/u shows Elevated IgG, low ceruloplasmin; Alpha 1 AT neg, ASMA neg, Viral hepatitis panel negative, HIV negative 24 hr urine copper levels elevated. will need ??Slit lamp testing?? as outpt before??considering liver biopsy as per GI US doppler of abd shows Limited study with reversal flow seen within the main portal vein although no discrete thrombus is seen . vasculature appears patent on recent CT abdomen and pelvis 06/23/2022.?? No further w/u needed as per GI. US also showed cirrhosis with sequela of portal hypertension,??small volume ascites and splenomegaly. Discussed with radiology, patient did not have enough ascitic fluid for safe tap Ammonia???1 25???07/04 - Pt has elevated INR, didnot improve with??Vit K - As d/w hematology, Dr. Jenkins, his pancytopenia,??low haptoglobin and elevated bili is likely dueto liver disease / alcoholism. ramos neg - Patient appears mildly hypervolemic/ edematous -??cont low dose lasix and spironolactone due to soft BP, orthostasis. monitor vol status. -Continue albumin infusion, Lasix, spironolactone ? Peripheral edema (R60.9): Lower EXTR cellulitis??due to hypoalbuminemia Recent albumin???2 ??patient has pitting edema with induration in the both calves likely due to cirrhosis/ hypoalbuminemia - Received 3 days of CTX for UTI, it was discontinued 06/26 and urine culture neg. Pt reports no change in lower ext erythema while on Abx - US ruled/o DVT -Albumin infusion for few days ? Bilateral lower extremity cellulitis: CT abdomen, CT chest???unremarkable (??for fever evaluation) Clinically??BL LE ??cellulitis Zosyn changed to Rocephin???07/05 ? Anemia (D64.9):?? Had elevated MCV but B12, FA normal. w/u suggestive of AOCD, sec to alcohol use monitor H/H, transfuse to keep Hb >7 ? VTE Prophylaxis:??scd Code Status:?full code ?? CM following for dc??to rehab. stated that patient has a bed offer from??subacute rehab, awaiting insurance authorization. Possible early dc tomorrow ?Daughter Marie,? .?Called her, went to voice message, left voice message with detailed updates.?waiting for callback?07/05 ? * Fely Gatica: PERFORM Event Display: Progress Note Hospital Authored Date: [id number] Patient: ??DESHAUN GOODRICH ? Age:??61 Years?Sex:??Male?:??1960?? I was called by nursing in the evening of 07/04 to evaluate this gentleman who was very somnolent and confused. I responded to the bedside and the patient was easily awoken from sleep. He was somewhatconfused and oriented to self only. He did know he was in the hospital. Who complained of??some abdominal pain.?? He denied??nausea or vomiting. On exam:??Patient was??somnolent??and ill-appearing.?? His skin was??very hot to touch.?? He was noted to have lower extremity??edema as well as redness from his feet??to his knees bilaterally.?? These areas were??tender to touch. His lungs were clear to auscultation.?? Abdomen??distended??with diffuse tenderness??there was some??rebound, no guarding??he had??hypoactive bowel sounds.?? Unable to palpate the??liver edge??no palpable splenomegaly.?? He also had??some flank tenderness. Heart S1-S2 no murmurs gallops rubs. Rectal temp:??100.7??heart rate 110?? bp 120/60 ??chest x-ray,??blood cultures, full laboratory ??evaluation,??urinalysis,??CT of the chest abdomenpelvis??were performed. Patient was noted to have a slightly elevated lactate at 2.0??otherwise ??BMP??and CBC were unremarkable.?? His ammonia level was ??elevated at 120. Chest x-ray was a poor film.?? CT of the chest revealed??small bilateral pleural effusions.?? Radiology reading is unavailable for the chest CT abdomen pelvis at this time. Decision was made to start this gentleman on broad-spectrum antibiotics given his??SIRS criteria??and possible??infected??effusions versus??SBP??versus lower extremity cellulitis.?? He was initiated on Zosyn and was given 1 dose of vancomycin.?? We will leave it up to the day team??to decide??if van comycin??should be continued.?? We will continue close monitoring. 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 100 cc of Omnipaque 300 was administered intravenously. This study was performed without oral contrast. Weight-based protocol using automatic tube modulation was used to optimize exposure parameters. CTDIvol Body: 33.70 mGy, DLP Body: 1910 mGy*cm. COMPARISON: 02/15/2009. FINDINGS: Fire Manager View Findings, Lines and Tubes: None. Visualized Chest: There are bilateral small pleural effusions, right larger than left. There are coronary artery calcifications. Diaphragm: Unremarkable. Liver: Diffuse low-attenuation throughout the liver parenchyma consistent with hepatic steatosis. No evidence of mass. Gallbladder: Absent consistent with prior cholecystectomy. Bile ducts: Mildly dilated common bile duct likely representing postcholecystectomy change. Spleen: The spleen is enlarged measuring 16 cm. Pancreas: Unremarkable. Adrenal glands: Unremarkable. Kidneys and ureters: Bilateral foci of renal cortical thinning consistent with scarring. Bladder: Unremarkable. Reproductive organs: Unremarkable. Stomach, small bowel, and large bowel: Diverticulosis of the colon without evidence of diverticulitis. Small diverticulum of the second segment of the duodenum. Again demonstrated are postsurgical changes in the stomach. Appendix: Not seen, but no evidence of appendicitis. Peritoneum and retroperitoneum: There is a small amount of abdominopelvic free fluid. In the anterior left pelvic cavity there is an elongated hypodense lesion with rim calcifications which measures 6.8 cm, unchanged when compared to the CT scan performed on 06/03/2020. Lymph nodes: No enlarged lymph nodes. Blood vessels: There are extensive prominent perisplenic varices extending to the left abdomen/pelvis. There are mild atherosclerotic calcifications. Abdominal and pelvic wall: There is extensive subcutaneous fat induration/stranding. Bones: There are multiple anterior and lateral right rib fractures. There is stable mild vertebral body compression fracture deformities at T12 and L1. Again demonstrated are multilevel discogenic degenerative changes at the thoracolumbar spine with spurring. IMPRESSION: 1. Splenomegaly. 2. Mild abdominopelvic ascites. 3. Extensive varices in the left abdomen/pelvis. 4. Small bilateral pleural effusions. 5. Hepatic steatosis. 6. Extensive subcutaneous abdominal and pelvic wall fat induration and stranding consistent with edema. 7. Chronic findings as detailed above. WSN: [id number] Ordering Physician: Anne Marie Dempsey Dictated By: Brooke Hernandez MD Dictated Date/Time: 06/23/22 5:44 pm Reviewed By: Brooke Hernandez MD Signed By: Brooke Hernandez MD Signed Date/Time: 06/23/22 5:44 pm Transcribed By: RHYS Transcribed Date/Time: 06/23/22 5:09 pm US.doppler Lower extremity vein - bilateral * [facility] , CIS S: TRANSCRIRaul Wooten MD: VERIFY Rui Modi MD: SIGN Event Display: Result: Authored Date: US Doppler Ext Lower Venous Bilat REASON: Swelling Extremities COMPARISON: Bilateral lower extremity Doppler ultrasound 07/01/2021 IMAGING TECHNIQUE: Ultrasound of the veins from the groin through the calf was performed using grayscale, color, and spectral Doppler ultrasound assessing for complete compressibility and normal flowcharacteristics. FINDINGS: RIGHT LOWER EXTREMITY: Common femoral vein: Patent. No thrombosis. Femoral vein: Patent. No thrombosis. Popliteal vein: Patent. No thrombosis. Gastrocnemius veins: The visualized portions are patent without evidence of thrombosis. Peroneal veins: The visualized portions are patent without evidence of thrombosis. Posterior tibial veins: The visualized portions are patent without evidence of thrombosis. LEFT LOWER EXTREMITY: Common femoral vein: Patent. No thrombosis. Femoral vein: Patent. No thrombosis. Popliteal vein: Patent. No thrombosis. Gastrocnemius veins: The visualized portions are patent without evidence of thrombosis. Peroneal veins: The visualized portions are patent without evidence of thrombosis. Posterior tibial veins: The visualized portions are patent without evidence of thrombosis. OTHER FINDINGS: There is diffuse calf edema. IMPRESSION: No evidence of deep venous thrombosis. I have personally reviewed the images and I agree with this report. WSN: [id number] Ordering Physician: Mahnaz Landa Dictated By: Rui Modi MD Dictated Date/Time: 06/27/22 3:11 pm Reviewed By: Raul Bolanos MD Signed By: Raul Bolanos MD Signed Date/Time: 06/27/22 3:16 pm Transcribed By: RHYS Transcribed Date/Time: 06/27/22 2:11 pm Portable XR Chest Views * [facility] , CIS S: TRANSCJorge Hook MD: VERIFY Event Display: Result: Authored Date: [id number] Chest Portable Reason: Fever Increased White Count; Clinical Question(s): Pneumonia COMPARISON: 06/23/2022 FINDINGS: Suboptimal exam due to patient rotation on the lung volumes. LINES AND TUBES: None. LUNGS AND PLEURA: Low lung volumes with mild basilar atelectasis. Increased perihilar airspace opacities relative to 06/23/2022. Trace pleural effusions. No pneumothorax. HEART, MEDIASTINUM AND KEVIN: Heart is normal in size. Normal mediastinal and hilar contour. BONES AND SOFT TISSUES: No acute abnormality. IMPRESSION: Suboptimal exam due to low lung volumes and patient rotation. Increased perihilar airspace opacities relative to 06/23/2022 which could be secondary to edema, although infection is difficult to exclude on radiograph. WSN: [id number] Ordering Physician: Simi Martin Dictated By: Jorge Chavez MD Dictated Date/Time: 07/04/22 8:21 pm Reviewed By: Jorge Chavez MD Signed By: Jorge Chavez MD Signed Date/Time: 07/04/22 8:21 pm Transcribed By: RHYS Transcribed Date/Time: 07/04/22 8:19 pm RF Esophagus Views W barium contrast PO * [facility] , CIS S: TRANSCRIBE Zander Harrison: Raul Salcido MD: VERIFY Event Display: Result: Authored Date: [id number] PROCEDURE: Esophagus Barium Swallow CLINICAL INDICATION: Question dysmotility COMPARISONS: Barium swallow 11/05/2008 FLUOROSCOPY TIME: 1.0 minutes EXPOSURE: 1446.4 uGy*m^2 TECHNIQUE: Barium contrast esophagram was performed by El Zhu PA-C. FINDINGS: Fire Manager: Surgical clips are seen projecting over the left and right upper quadrants. Swallow: Normal oral and pharyngeal phases with no laryngeal penetration or subglottic aspiration. Esophagus: 2.7 cm long vertically oriented erosion of the left lateral wall the distal esophagus approximately 8 cm proximal to the GEJ is seen, consistent with findings on endoscopy. Suspected additional erosion along the anterior margin of the mid esophagus measuring 2.3 cm in length. Tertiary contractions of the distal half of the esophagus are visualized, with some proximal escape the barium bolus noted. No hiatal hernia. No spontaneous gastroesophageal reflux was appreciated during the study. A 13 mm barium tablet was not trialed per request of the ordering clinician. No evidence of esophageal web, narrowing or outpouching. No esophageal obstruction. The stomach and proximal jejunal are grossly normal, with expected postoperative changes status post gastric bypass, unchanged from prior study. Contrast promptly empties from the gastric pouch into a nondilated proximal jejunum. No gastric outlet obstruction. IMPRESSION: 1. Findings consistent with linear esophageal erosions in the mid and distal esophagus as seen on endoscopy earlier today. 2. Mild to moderate esophageal dysmotility. 3. Expected postoperative anatomy status post gastric bypass is unchanged. By undersigning and finalizing the report, the attending radiologist confirms he/she has personallyreviewed and interpreted the images and agrees with the description of the findings. I have personally reviewed the images and I agree with this report. WSN: [id number] Ordering Physician: Dianna Cottrell Dictated By: Zander Harrison Dictated Date/Time: 06/26/22 4:16 pm Reviewed By: Raul Bolanos MD Signed By: Raul Bolanos MD Signed Date/Time: 06/26/22 4:21 pm Transcribed By: RHYS Transcribed Date/Time: 06/26/22 3:41 pm US Abdomen RUQ * [facility] , CIS S: TRANSCRIBE Jordan England MD W: VERIFY Mizra Gardiner DO L: SIGN Event Display: Result: Authored Date: [id number] US Abdominal Doppler Comp, US RUQ Reason: GI request; Clinical Question(s): Thrombosis TECHNIQUE: Color flow and duplex Doppler analysis of abdominal vasculature. Right upper quadrant ultrasound also performed. COMPARISON: CT abdomen and pelvis 06/23/2022. FINDINGS: Study is limited by bowel gas and patient body habitus. Vascular Findings: Arteries: Hepatic arteries: Arterial waveforms in the visualized hepatic arteries are normal. Hepatic artery angle-corrected velocity: 138.9 cm/sec. Hepatic artery resistive index: 0.7 (Normal range: 0.55-0.7). Veins: Portal veins: The main portal vein appears patent but with reversal of flow. No definite visualizedthrombosis. The right and left portal veins are not visualized. Portal vein angle-corrected velocity: -24.6 cm/sec (Normal range: 16-40 cm/sec). Hepatic veins: The left hepatic vein is not visualized. The right and middle hepatic veins are patent with appropriate hepatofugal flow and phasic form. Inferior vena cava: IVC is patent with appropriate direction of flow. Splenic vein: Patent splenic vein is seen only at the hilum. Spleen length: 16.2 cm. Additional Findings: Liver: Echogenic and difficult to penetrate hepatic parenchyma, limiting evaluation for focal lesions. Nodular hepatic contour. Gallbladder: Status post cholecystectomy. Biliary Tree: No intrahepatic or extrahepatic bile duct dilation is identified. Common duct: 1.0 cm. Pancreas: Obscured by overlying bowel gas. Right kidney: Limited evaluation. Normal parenchymal echotexture and thickness. No hydronephrosis, stone or mass. IMPRESSION: 1. Limited study with reversal flow seen within the main portal vein although no discrete thrombus is seen and the vasculature appears patent on recent CT abdomen and pelvis 06/23/2022. Cannot excludepartial thrombosis of the portal vein. If there is clinical concern for portal vein thrombosis, confirmation with CT is suggested. 2. Cirrhotic liver morphology and sequela of portal hypertension including small volume ascites andsplenomegaly. I have personally reviewed the images and I agree with this report. WSN: [id number] Ordering Physician: Li David Dictated By: Mirza Gardiner DO Dictated Date/Time: 06/28/22 10:07 a Reviewed By: Jordan England MD Signed By: Jordan England MD Signed Date/Time: 06/28/22 10:12 am Transcribed By: RHYS Transcribed Date/Time: 06/28/22 9:[address] Abdomen and Pelvis WO contrast * [facility] , CIS S: TRANSCRIBE Gracie DOUGLASS, Felipe: GARETT Deluna MD, Cristy: VERIFY Event Display: Result: Authored Date: [id number] CT Chest W/O Contrast, CT Abdomen and Pelvis W/O Contrast INDICATION: Respiratory illness. TECHNIQUE: Helical CT scan of the chest, abdomen, and pelvis without IV contrast, formatted in 3 planes. This study was performed oral contrast. Weight- based protocol was performed using automatic exposure control. CTDIvol Body: 22.10 mGy, DLP Body: 1691 mGy*cm. COMPARISON: CT abdomen/pelvis 06/23/2022. Correlation made with same-day chest radiograph. FINDINGS: Fire Manager view findings, lines and tubes: None. Trachea and airways: Patent without evidence of tracheal or endobronchial lesion. Lungs and pleura: Motion degradation. Small bilateral pleural effusions, right greater than left with associated mild bibasilar atelectasis. Mediastinum and kevin: No mass or hematoma. No mediastinal or hilar lymphadenopathy. No esophageal abnormality. Normal thyroid. Heart: Heart is normal in size. No pericardial effusion. Moderate coronary artery calcification. Aorta: Mild vascular calcification but no aneurysm. Pulmonary arteries: Normal caliber. Chest wall soft tissues: No acute abnormality. Diaphragm: Intact. Liver: Diffuse low-attenuation throughout the liver parenchyma consistent with hepatic steatosis. No evidence of a suspicious lesion. Gallbladder: Absent consistent with prior cholecystectomy. Bile ducts: Unchanged mildly dilated common bile duct, likely due to prior cholecystectomy. Spleen: Spleen is enlarged measuring up to 15.5 cm (image 94 series 201). Pancreas: No suspicious lesion or ductal dilatation. Adrenal glands: No nodule. Kidneys and ureters: No hydronephrosis, stone, or suspicious lesion. Unchanged bilateral focal renal cortical thinning, consistent with scarring. Bladder: Decompressed, limiting evaluation. Reproductive organs: Unremarkable. Peritoneum and retroperitoneum: Mild perihepatic and perisplenic ascites as well as mild ascites inthe right lower abdomen. No omental or mesenteric lesions. No significant change elongated hypodense lesion with peripheral calcifications measuring up to 6.8 cm Lymph nodes: No enlarged lymph nodes. Blood vessels: Mild vascular calcifications but no aneurysm. Abdominal and pelvic wall soft tissues: Bilateral fat-containing inguinal hernias. Bones: Mild degenerative changes of the spine with chronic appearing compression fracture of T12 and L1. Multiple old right-sided rib fractures. IMPRESSION: 1. Small bilateral pleural effusions, right greater than left with associated atelectasis. 2. Cirrhotic morphology of the liver with evidence of portal hypertension. Small volume ascites surrounding the liver, spleen, and within the right lower quadrant of the abdomen. 3. Mild splenomegaly. I have personally reviewed the images and I agree with this report. WSN: [id number] Ordering Physician: Fely Cook Dictated By: Felipe Bowman MD Dictated Date/Time: 07/05/22 8:16 am Reviewed By: Cristy Deluna MD Signed By: Cristy Deluna MD Signed Date/Time: 07/05/22 8:21 am Transcribed By: RHYS Transcribed Date/Time: 07/05/22 0:[address] Chest WO contrast * [facility] , CIS S: TRANSCRIBE Felipe Bowman MD: SIGN Cristy Deluna MD: VERIFY Event Display: Result: Authored Date: [id number] CT Chest W/O Contrast, CT Abdomen and Pelvis W/O Contrast INDICATION: Respiratory illness. TECHNIQUE: Helical CT scan of the chest, abdomen, and pelvis without IV contrast, formatted in 3 planes. This study was performed oral contrast. Weight- based protocol was performed using automatic exposure control. CTDIvol Body: 22.10 mGy, DLP Body: 1691 mGy*cm. COMPARISON: CT abdomen/pelvis 06/23/2022. Correlation made with same-day chest radiograph. FINDINGS: Fire Manager view findings, lines and tubes: None. Trachea and airways: Patent without evidence of tracheal or endobronchial lesion. Lungs and pleura: Motion degradation. Small bilateral pleural effusions, right greater than left with associated mild bibasilar atelectasis. Mediastinum and kevin: No mass or hematoma. No mediastinal or hilar lymphadenopathy. No esophageal abnormality. Normal thyroid. Heart: Heart is normal in size. No pericardial effusion. Moderate coronary artery calcification. Aorta: Mild vascular calcification but no aneurysm. Pulmonary arteries: Normal caliber. Chest wall soft tissues: No acute abnormality. Diaphragm: Intact. Liver: Diffuse low-attenuation throughout the liver parenchyma consistent with hepatic steatosis. No evidence of a suspicious lesion. Gallbladder: Absent consistent with prior cholecystectomy. Bile ducts: Unchanged mildly dilated common bile duct, likely due to prior cholecystectomy. Spleen: Spleen is enlarged measuring up to 15.5 cm (image 94 series 201). Pancreas: No suspicious lesion or ductal dilatation. Adrenal glands: No nodule. Kidneys and ureters: No hydronephrosis, stone, or suspicious lesion. Unchanged bilateral focal renal cortical thinning, consistent with scarring. Bladder: Decompressed, limiting evaluation. Reproductive organs: Unremarkable. Peritoneum and retroperitoneum: Mild perihepatic and perisplenic ascites as well as mild ascites inthe right lower abdomen. No omental or mesenteric lesions. No significant change elongated hypodense lesion with peripheral calcifications measuring up to 6.8 cm Lymph nodes: No enlarged lymph nodes. Blood vessels: Mild vascular calcifications but no aneurysm. Abdominal and pelvic wall soft tissues: Bilateral fat-containing inguinal hernias. Bones: Mild degenerative changes of the spine with chronic appearing compression fracture of T12 and L1. Multiple old right-sided rib fractures. IMPRESSION: 1. Small bilateral pleural effusions, right greater than left with associated atelectasis. 2. Cirrhotic morphology of the liver with evidence of portal hypertension. Small volume ascites surrounding the liver, spleen, and within the right lower quadrant of the abdomen. 3. Mild splenomegaly. I have personally reviewed the images and I agree with this report. WSN: [id number] Ordering Physician: Fely Cook Dictated By: Felipe Bowman MD Dictated Date/Time: 07/05/22 8:16 am Reviewed By: Cristy Deluna MD Signed By: Cristy Deluna MD Signed Date/Time: 07/05/22 8:21 am Transcribed By: RHYS Transcribed Date/Time: 07/05/22 0:35 am Patient Care team information Care Team Personnel Name: Lolita Stout RN Position: S RN Member Role: Primary Care Nurse Name: Jazlyn Fu RN Position: [facility] SN RN Member Role: Primary Care Nurse Name: Hannah De La Vega RN Position: S RN Member Role: Primary Care Nurse Name: Kalpana Ferrara RN Position: S RN Member Role: Primary Care Nurse Name: Kate Muhammad RN Position: S RN Member Role: Primary Care Nurse Name: Marie Garg RN Position: S RN Member Role: Primary Care Nurse Name: Rima López RN Position: S RN Member Role: Primary Care Nurse Name: Brigid Goss RN Position: S RN Member Role: Primary Care Nurse Name: Ashley Kebede RN Position: S RN Member Role: Primary Care Nurse Name: Marie Sosa RN Position: S RN Member Role: Primary Care Nurse Name: Courtney Sullivan RN Position: [facility] SN RN Member Role: Primary Care Nurse Name: Wilfrido Fraga RN Position: S RN Member Role: Primary Care Nurse Name: Dora Salcedo RN Position: S RN Member Role: Primary Care Nurse Name: Carolyn Brice RN Position: S RN Member Role: Primary Care Nurse Name: Darlin Geller RN Position: S RN Member Role: Primary Care Nurse Name: Jenni Dixon Position: Reference Physician Member Role: PCP Address: Address: [address] [place] [address] Name: Karol Mary RN Position: [facility] Onco RN Member Role: Primary Care Nurse Name: Raven Clark RN Position: [facility] Hospital Video Producer Member Role: Primary Care Nurse Name: Radha Watts Position: [facility] ED OA Charge Member Role: ED Associate Name: Lis English MD Position: [facility] ED Medicine MD Member Role: ED Attending Physician Address: Address: [address] [place] [address]- Name: Lien Stahl RN Position: [facility] ED RN W/OE and Tasks Member Role: Patient Care Provider Name: Deejay Vickers MD Position: [facility] Resident Member Role: ED Resident Address: Address: [address] [place] [id number] Name: Sofia Mckeon Position: [facility] ED TA [facility] Member Role: Electric Car Operator Name: Roxi Garibay Position: [facility] ED TA [facility] Member Role: Patient Care Provider Care Team Related Persons Name: LONNIE CASILLAS Address: [address] [place] [address] Name: MARIE ADAIR Address: [address] [place] [address]
--- OUTSIDE RECORDS SUMMARY | 2023-01-23 10:33 | XMS_ITS | Continuity of Care Document ---
Author Name Unknown Organization [facility] ter Address [address] [place] [address]- Care Team Providers Care Railcar Brake Operator Name Role Phone Mando Stack MD Primary Care Physician [place] [facility] [place](s): 04/10/19 - 04/17/[address] [address]- [facility] Attending Physician: Mando Stack MD Allergies, Adverse Reactions, Alerts Substance Reaction [...]
--- OUTSIDE RECORDS SUMMARY | 2023-01-23 10:33 | XMS_ITS | Continuity of Care Document ---
Author Name Unknown Organization [facility] Address [address] [place] [address]- Care Team Providers Care R D Intern Name Role Phone Jenni Dixon Primary Care Physician ( [phone] [place] [facility] [place] Date(s): 07/20/21 - 08/19/21 [facility] Care [address] [place] [id number]- Attending Physician: Alice Woods Admitting Physician: AdmtrAlice Referring Physician: Admtr, Ar8 Allergies, Adverse Reactions, Alerts Substance Reaction Severity Status Latex rash Persistent Moderate Active Lactose Active Immunizations Given and Recorded Vaccine Date Status Refusal Reason pneumococcal 23-valent vaccine 11/10/17 Given Medications atorvastatin 80 mg oral tablet 1 tablet = 80 mg, By Mouth, Daily at bedtime, # 30 tablet, 0 Refills, Maintenance, 07/01/21 15:29:00 EDT, Tablet, [facility], Partial fill upon patient request if [...] 07/01/21 15:34:00 EDT, Route to Pharmacy Electronically, [facility] 3, Partial fill upon patient request [...] 07/01/21 15:29:00 EDT, Route to Pharmacy Electronically, [facility] 3, Partial fill upon patient request [...] 0 Refills, Maintenance, 07/01/21 15:33:00 EDT, Patch, [facility], Partial fill upon patient [...] tablet, 0 Refills, Maintenance, 07/01/21 15:30:00EDT, Tablet, [facility], Partial fill upon patient request if the prescription is fora schedule II opioid drug., 180, cm, 07/01/21 15:10... Start Date: 07/01/21 Status: Ordered Problem List Condition Effective Dates Status Health Status Inform ant Diverticulitis(Confirmed) 1 Active Inguinal hernia(Confirmed) Active Lactose intolerance(Confirmed) Active Obese class II(Confirmed) Active 1two episodes Social History Social History Type Response Smoking Status Never (less than 100 in lifetime) entered on: 02/27/18 Sex
--- OUTSIDE RECORDS SUMMARY | 2023-01-23 10:33 | XMS_ITS | Continuity of Care Document ---
Author Name Unknown Organization [facility] Address [address] [place] [address]- Care Team Providers Care Third Helper Name Role Phone Jenni Dixon Primary Care Physician [id number] Date(s[facility] 07/20/21 - 12/20/21 [facility] Care [address] [place] [address]- Discharge Disposition: A-D/C Home Attending Physician: Not on Staff, Attending MD Admitting Physician: Not on Staff, Admitting MD Referring Physician: Jenni Dixon Allergies, Adverse Reactions, Alerts Substance Reaction Severity Status Latex rash Persistent Moderate Active Lactose Active Immunizations Given and Recorded Vaccine Date Status Refusal Reason pneumococcal 23-valent vaccine 11/10/17 Given Medications atorvastatin 80 mg oral tablet 1 tablet = 80 mg, By Mouth, Daily at bedtime, # 30 tablet, 0 Refills, Maintenance, 07/01/21 15:29:00 EDT, Tablet, [facility], Partial fill upon patient request if [...] 07/01/21 15:34:00 EDT, Route to Pharmacy Electronically, [facility] 3, Partial fill upon patient request [...] 07/01/21 15:29:00 EDT, Route to Pharmacy Electronically, [facility], Partial fill upon patient request if [...] 0 Refills, Maintenance, 07/01/21 15:33:00 EDT, Patch, [facility], Partial fill upon patient request [...] tablet, 0 Refills, Maintenance, 07/01/21 15:30:00EDT, Tablet, [facility], Partial fill upon patient request [...] 100 in lifetime) entered on: 02/27/18 Sex Care Team Personnel Name: Jenni Dixon Address: [address] [place] [address]
--- OUTSIDE RECORDS SUMMARY | 2023-01-23 10:33 | XMS_ITS | Continuity of Care Document ---
Author Name Unknown Organization [facility] Address [address] [place] [address]- Care Team Providers Care Supervisor Food Checkers And Cashiers Name Role Phone Jenni Dixon Primary Care Physician [place] [facility] [place] 10/16/22 - 11/15/22 [facility] [address] [place] [address]- Attending Physician: Alice Woods Admitting Physician: Alice Woods Referring Physician: AdmtrAlice Allergies, Adverse Reactions, Alerts Substance Reaction Severity [...] 07/01/21 15:34:00 EDT, Route to Pharmacy Electronically, [facility], Partial fill upon patient [...] 0 Refills, Maintenance, 07/01/21 15:33:00 EDT, Patch, [facility], Partial fill upon patient [...] tablet, 0 Refills, Maintenance, 07/01/21 15:30:00EDT, Tablet, [facility] 3, Partial fill upon patient request [...] Care Nurse Name: Jazlyn Fu RN Position: [facility] SN RN Member Role: Primary Care Nurse [...] Care Nurse Name: Carolyn Brice RN Position: [facility] RN Member Role: Primary Care Nurse Name: Darlin Geller RN Position: [facility] RN Member Role: Primary Care Nurse Name: Jenni Dixon Position: Reference Physician Member Role: PCP Address: Address: [address] [place] [id number] Name: Karol Mary RN Position: [facility] Onco RN Member Role: Primary Care Nurse Name: Raven Clark RN Position: [facility] Duck Operator Member Role: Primary Care Nurse Care Team Related Persons Name: VINNY, LONNIE Address: [address] [place] [address] Name: ENOCH ADAIR Address: [address] [place] [address]
--- OUTSIDE RECORDS SUMMARY | 2023-01-23 10:33 | XMS_ITS | Continuity of Care Document ---
Author Name Unknown Organization [facility] ter Address [address] [place] [address]- Care Team Providers Care Basket Mender Name Role Phone Rosa TIM, Jenni Frausto Primary Care Physician En[place] [facility] [place] Date(s): 06/29/21 - 07/01/[address] [address] Discharge Disposition: A-D/C Home Attending Physician: Angel Quinones DO Admitting Physician: Ena Neumann MD Referring Physician: Not on Staff, Referring MD Allergies, Adverse Reactions, Alerts Substance Reaction Severity Status Latex rash Persistent Moderate Active Lactose Active Immunizations Given and Recorded Vaccine Date Status Refusal Reason pneumococcal 23-valent vaccine 11/10/17 Given Medications atorvastatin 80 mg oral tablet 1 tablet = 80 mg, By Mouth, Daily at bedtime, # 30 tablet, 0 Refills, Maintenance, 07/01/21 15:29:00 EDT, Tablet, [facility], Partial fill upon patient [...] 07/01/21 15:34:00 EDT, Route to Pharmacy Electronically, [facility], Partial fill upon patient [...] losartan 25 mg oral tablet 25 mg, Tablet, By Mouth, 07/01/21 9:00:00 EDT Start Date: 07/01/21 Stop Date: 07/01/21 Status: Completed losartan 25 mg oral tablet 25 mg, 1, tablet, By Mouth, Daily, # 30 tablet, Refills 0, Tot. Refills 0, Maintenance, 07/01/21 15:29:00 EDT, Route to Pharmacy Electronically, [facility], Partial fill upon patient request if [...] 0 Refills, Maintenance, 07/01/21 15:33:00 EDT, Patch, [facility], Partial fill upon patient [...] tablet, 0 Refills, Maintenance, 07/01/21 15:30:00EDT, Tablet, [facility], Partial fill upon patient request if the prescription is fora schedule II opioid drug., 180, cm, 07/01/21 15:10... Start Date: 07/01/21 Status: Ordered Problem List Condition Effective Dates Status Health Status Inform ant Diverticulitis(Confirmed) 1 Active Inguinal hernia(Confirmed) Active Lactose intolerance(Confirmed) Active Obese class II(Confirmed) Active 1two episodes Results Radiology Reports * Exam Date Time Procedure Performing Provider Status 06/30/21 9:14 PM Chest Portable Tuan Silverman; Anna (Nikky ified) Notes: (Chest Portable) Reason For Exam: Angina RESULT: Chest Portable Chest Portable Reason: Angina; Clinical Question(s): CHF COMPARISON: 06/21/2021 FINDINGS: LINES AND TUBES: None. LUNGS AND PLEURA: Clear lungs. Normal pulmonary vascularity. No pleural effusion. No pneumothorax. HEART, MEDIASTINUM AND DAYA: Heart is normal in size. Normal upper mediastinal and hilar contour. BONES AND SOFT TISSUES: No acute abnormality. IMPRESSION: Normal chest. WSN: [id number] Ordering Physician: Barber Bonner Dictated By: Sony Gloria MD Dictated Date/Time: 06/30/21 9:28 pm Reviewed By: Sony Gloria MD Signed By: Sony Gloria MD Signed Date/Time: 06/30/21 9:28 pm Transcribed By: RHYS Transcribed Date/Time: 06/30/21 9:28 pm Vital Signs Most recent to oldest [Reference Range]: 1 2 3 Height 180 cm (07/01/21 3:10 PM) 180 cm (07/01/21 12:36 PM) 180 cm (07/01/21 11:37 AM) Weight 129 kg (06/30/21 10:54 AM) Oxygen Saturation [94-100 %] 97 % (07/01/21 11:37 AM) 100 % (07/01/21 7:43 AM) 96 % (07/01/21 3:00 AM) Pulse Rate [55-90 bpm] 77 bpm (07/01/21 11:37 AM) 89 bpm (07/01/21 8:23 AM) 82 bpm (07/01/21 7:43 AM) Body Mass Index [18.5-24.99] 39.81 *>HHI* (06/30/21 10:54 AM) Blood Pressure [90-138/55-84 mm Hg] 167/77mm Hg *H* (07/01/21 11:37 AM) 166/87mm Hg *H* (07/01/21 8:29 AM) 166/87mm Hg *H* (07/01/21 8:23 AM) Respiratory Rate [16-30 br/min] 18 br/min (07/01/21 11:37 AM) 17 br/min (07/01/21 8:23 AM) 18 br/min (07/01/21 7:43 AM) Temperature [96.8-100.4 DegF] 97.6 DegF (07/01/21 11:37 AM) 98.0 DegF (07/01/21 7:43 AM) 98.5 DegF (07/01/21 3:00 AM) Mode of Delivery (Oxygen) Room air (07/01/21 11:37 AM) Room air (07/01/21 7:43 AM) Room air (07/01/21 3:00 AM) Blood pressure sites Arm, left (07/01/21 11:37 AM) Arm, left (07/01/21 7:43 AM) Arm, left (07/01/21 3:00 AM) Temperature Route Oral (07/01/21 11:37 AM) Oral (07/01/21 7:43 AM) Oral (07/01/21 3:00 AM) Dry Weight 129 kg (06/30/21 10:54 AM) Weight Obtained Via Patient/family state d (06/30/21 10:54 AM) Dry Weight Obtained Via Patient/family s tated (06/30/21 10:54 AM) Social History Social History Type Response Smoking Status Never (less than 100 in lifetime) entered on: 02/27/18 Sex
--- OUTSIDE RECORDS SUMMARY | 2023-01-23 10:33 | XMS_ITS | Continuity of Care Document ---
Author Name Unknown Organization [facility] ter Address [address] [place] [phone]- Care Team Providers Care Breast Trimmer Name Role Phone Nitin Solomon MD Primary Care Physician Encounter [facility] [place] Date(s): 06/03/20 - 06/03/[address] [address]- Encounter Diagnosis Rib contusion(Final) - 06/03/20 Discharge Disposition: A-D/C Home Attending Physician: Fely Linares MD Admitting Physician: Fely Linares MD Referring Physician: Not on Staff, Referring [...] Date: 11/15/18 Stop Date: 11/22/18 Status: Ordered Dilaudid Inj 1 mg, Injection, IV Push Slowly, Every 15 minutes for 3 doses/times, PRN for Pain , Moderate, and SBP greater than 100, STAT, 06/03/20 13:58:00 EST, Stop date Limited # of times Start Date: 06/03/20 Stop Date: 06/04/20 Status: Discontinued folic acid 1 mg oral tablet 1 mg, 1, tablet, By Mouth, Daily, # 30 tablet, Refills 0, Tot. Refills 0, Maintenance, 11/17/17 10:03:25 EDT, Do Not Route Start Date: 11/17/17 Stop Date: 12/17/17 Status: Ordered Iron 100 Plus 1 tablet, By Mouth, Daily, 0 Refills, Maintenance, 02/27/18 13:06:45 EST Start Date: 02/27/18 Status: Ordered lidocaine 5% topical film 1 patch, Topically, Daily, PRN Pain , Mild, remove after 12 hours, # 13 each, 0 Refills, Maintenance, 06/03/20 17:34:00 EST, Film, [facility]/pharmacy #[id number], Partial fill upon patient request if the prescription is for a schedule II opioid drug., 1 patch Top... Start Date: 06/03/20 Status: Ordered oxyCODONE 5 mg oral capsule 1 capsule = 5 mg, By Mouth, Every 6 hours, PRN as needed for pain, # 5 capsule, 0 Refills, Acute 06/08/20 18:00:00 EDT, 06/03/20 17:33:00 EST, Capsule, [facility]/pharmacy #[id number], Partial fill upon patient request if the prescription is for a schedule II opio... Start Date: 06/03/20 Stop Date: 06/08/20 Status: Ordered Protonix 40 mg oral delayed release tablet 1 tablet = 40 mg, By Mouth, 2 times a day, # 60 tablet, 0 Refills, Maintenance, 11/17/17 10:03:35 EDT, EC Tablet Start Date: 11/17/17 Stop Date: 12/17/17 Status: Ordered Sertraline = 100 mg, By Mouth, Daily, 0 Refills, Maintenance, 02/27/18 13:06:20 EST Start Date: 02/27/18 Status: Ordered Vitamin D 86586 iu oral capsule 50,000 International_Units, 1, capsule, By Mouth, Every week, # 12 capsule, Refills 0, Tot. Refills0, Maintenance, 08/28/19 15:57:00 EDT, Route to Pharmacy Electronically, [facility]/pharmacy #[id number], 180.3,cm, 08/28/19 15:15:00 EDT, Height, 108.18, kg, 06/0... Start Date: 08/28/19 Stop Date: 11/20/19 Status: Ordered Problem List Condition Effective Dates Status Health Status Inform ant Diverticulitis(Confirmed) 1 Active Inguinal hernia(Confirmed) Active Lactose intolerance(Confirmed) Active 1two episodes Results Radiology Reports * Exam Date Time Procedure Performing Provider Status 06/03/20 3:05 PM Chest 2 Views Frontal and Lat Ekenbarg linette , Kendal Marti; Anna (Verified) Notes: (Chest 2 Views Frontal and Lat) Reason For Exam: Shortness of Breath RESULT: Chest 2 Views Frontal and Lat PA and lateral chest dated June 03, 2020. Comparison films are from March 05, 2018. HISTORY: Pain secondary to trauma. FINDINGS: The cardiac silhouette is within normal limits for size. Hilar and mediastinal structuresare unremarkable. No airspace infiltrate or pleural effusion is identified. No displaced rib fracture or pneumothorax is seen. IMPRESSION: No evidence of acute pulmonary disease. No significant interval change. Examination 40578. Thank you for allowing me to participate in the care of this patient. WSN: [id number] Ordering Physician: Jhonny Ghotra Dictated By: Tomy Ray MD Dictated Date/Time: 06/03/20 3:06 pm Reviewed By: Tomy Ray MD Signed By: Tomy Ray MD Signed Date/Time: 06/03/20 3:06 pm Transcribed By: RHYS Transcribed Date/Time: 06/03/20 3:06 pm Vital Signs Most recent to oldest [Reference Range]: 1 2 3 Height 180 cm (06/03/20 6:08 PM) 180 cm (06/03/20 4:29 PM) 180 cm (06/03/20 1:44 PM) Weight 111.7 kg (06/03/20 6:08 PM) 111.7 kg (06/03/20 4:29 PM) 111.7 kg (06/03/20 1:44 PM) Oxygen Saturation [94-100 %] 100 % (06/03/20 5:54 PM) 100 % (06/03/20 4:29 PM) 100 % (06/03/20 1:44 PM) Pulse Rate [55-90 bpm] 68 bpm (06/03/20 5:54 PM) 67 bpm (06/03/20 4:29 PM) 62 bpm (06/03/20 1:44 PM) Body Mass Index [18.5-24.99] 34.48 *>HHI* (06/03/20 4:29 PM) 34.48 *>HHI* (06/03/20 1:44 PM) 34.48 *>HHI* (06/03/20 1:08 PM) Blood Pressure [90-138/55-84 mm Hg] 128/80mm Hg (06/03/20 5:54 PM) 148/84mm Hg *H* (06/03/20 4:29 PM) 146/85mm Hg *H* (06/03/20 1:44 PM) Respiratory Rate [16-30 br/min] 18 br/min (06/03/20 5:54 PM) 17 br/min (06/03/20 4:29 PM) 17 br/min (06/03/20 4:29 PM) Temperature [96.8-100.4 DegF] 98.7 DegF (06/03/20 1:44 PM) 98.1 DegF (06/03/20 1:08 PM) Mode of Delivery (Oxygen) Room air (06/03/20 5:54 PM) Room air (06/03/20 4:29 PM) Room air (06/03/20 1:44 PM) Blood pressure sites Arm, left (06/03/20 4:29 PM) Arm, left (06/03/20 1:44 PM) Arm, left (06/03/20 1:08 PM) Temperature Route Oral (06/03/20 1:44 PM) Oral (06/03/20 1:08 PM) Dry Weight 111.7 kg (06/03/20 6:08 PM) 111.7 kg (06/03/20 4:29 PM) 111.7 kg (06/03/20 1:44 PM) Weight Obtained Via Standing scale (06/03/20 1:08 PM) Dry Weight Obtained Via Standing scale (06/03/20 1:08 PM) Social History Social History Type Response Smoking Status Never (less than 100 in lifetime) entered on: 02/27/18 Sex
--- OUTSIDE RECORDS SUMMARY | 2023-01-23 10:33 | XMS_ITS | Continuity of Care Document ---
Author Name Unknown Organization [facility] Address [address] [place] [address]- Care Team Providers Care Manager Media Name Role Phone Brianna DOUGLASS, Emilie Otoole Primary Care Physician [place] [facility] [place] - 03/16/[address] [address] Discharge Disposition: A-D/C Home Attending Physician: Emilie Reed MD Admitting Physician: Emilie Reed MD Referring Physician: Nitin Solomon MD Allergies, Adverse Reactions, Alerts Substance Reaction [...] Start Date: 02/27/18 Status: Ordered Vitamin D 83078 iu oral capsule 50,000 International_Units, 1, capsule, By Mouth, Every week, # 12 capsule, Refills 0, Tot. Refills0, Maintenance, 08/28/19 15:57:00 EDT, Route to Pharmacy Electronically, [facility]/pharmacy #[id number], 180.3,cm, 08/28/19 15:15:00 EDT, Height, [...]
--- OUTSIDE RECORDS SUMMARY | 2023-01-23 10:33 | XMS_ITS | Continuity of Care Document ---
Author Name Unknown Organization [facility] Address [address] [place] [address]- Care Team Providers Care Brick Pitcher Name Role Phone Brianna DOUGLASS, Emilie Otoole Primary Care Physician Encounter [facility] [place] Date(s): 03/12/20 - 04/11/[address] [address] Attending Physician: Alice Woods Admitting Physician: Alice [...] Start Date: 02/27/18 Status: Ordered Vitamin D 57213 iu oral capsule 50,000 International_Units, 1, capsule, By Mouth, Every week, # 12 capsule, Refills 0, Tot. Refills0, Maintenance, 08/28/19 15:57:00 EDT, Route to Pharmacy Electronically, [facility]/pharmacy #[id number], 180.3,cm, 08/28/19 15:15:00 EDT, Height, [...]
--- OUTSIDE RECORDS SUMMARY | 2023-01-23 10:33 | XMS_ITS | Continuity of Care Document ---
Author Name Unknown Organization [facility] Address [address] [place] [address]- Care Team Providers Care Relay Man Name Role Phone Jenni Dixon Primary Care Physician Encounter 11/21/22 - 01/18/23 [facility] [address] [place] [address]- Discharge Disposition: GOALS MET Allergies, Adverse Reactions, Alerts Substance Reaction Severity [...] drug. Start Date: 11/27/22 Status: Ordered ergocalciferol 73003 iu oral capsule 50,000 International_Units, 1, capsule, [...] Refills, Maintenance, 11/28/22 13:55:00 EDT, REC Powder, [facility]/pharmacy #[id number], Partial fill upon patient request [...] drug. Start Date: 11/27/22 Status: Ordered nystatin 671738 u/ml oral suspension 5 mL = 500,000 [...] drug. Start Date: 11/27/22 Status: Ordered sodium polystyrene sulfonate oral and [...] Team Personnel Name: Lolita Stout RN Position: [facility] RN Member Role: Primary Care Nurse Name: Jazlyn Fu RN Position: [facility] SN RN Member Role: Primary Care Nurse Name: Hannah De La Vega RN Position: [facility] RN Member Role: Primary Care Nurse Name: Kalpana Ferrara RN Position: [facility] RN Member Role: Primary Care Nurse Name: Kate Muhammad RN Position: [facility] RN Member Role: Primary Care Nurse Name: Enoch Garg RN Position: [facility] RN Member Role: Primary Care Nurse Name: Rima López RN Position: S RN Member Role: Primary Care Nurse Name: Karol Gonzalez RN Position: [facility] Onco RN Member Role: Primary Care Nurse Name: Ashley Kebede RN Position: [facility] RN Member Role: Primary Care Nurse Name: Enoch Sosa RN Position: [facility] RN Member Role: Primary Care Nurse Name: Courtney Sullivan RN Position: [facility] SN RN Member Role: Primary Care Nurse Name: Wilfrido Fraga RN Position: [facility] RN Member Role: Primary Care Nurse Name: Dora Salcedo RN Position: [facility] RN Member Role: Primary Care Nurse Name: Hermann Thorne MD Position: [facility] Renal MD Member Role: Lifetime Consulting Physician Address: Address: [address] [facility], [place] [address]- [place] Name: Carolyn Brice RN Position: [facility] RN Member Role: Primary Care Nurse Name: Darlin Geller RN Position: [facility] RN Member Role: Primary Care Nurse Name: Jenni Dixon Position: Reference Physician Member Role: PCP Address: Address: [address] [place] [address]- [place] Name: Raven Clark RN Position: [facility] Safety And Security Manager Member Role: Primary Care Nurse Care Team Related Persons Name: LONNIE CASILLAS Address: home [address] [place] [address] Name: ENOCH ADAIR Address: home [address] [place] [address]
--- OUTSIDE RECORDS SUMMARY | 2023-01-23 10:33 | XMS_ITS | Continuity of Care Document ---
Author Name Unknown Organization [facility] ter Address [address] [place] [address]- Care Team Providers Care Head Cleaning Porter Name Role Phone Mando Stack MD Primary Care Physician Encounter [facility] [place] Date(s): 03/31/19 - 03/31/[address] [address]- [facility] Attending Physician: Mando Stack MD Allergies, [...]
--- OUTSIDE RECORDS SUMMARY | 2023-01-23 10:33 | XMS_ITS | Continuity of Care Document ---
Author Name Unknown Organization [facility] ter Address [address] [place] [address]- Care Team Providers Care Ice Puller Name Role Phone Jenni Dixon Primary Care Physician Encounter [facility] [place] Date(s): 06/21/21 - 06/21/[address] [address]- Encounter Diagnosis Concussion(Final) - 06/21/21 Discharge Disposition: A-D/C Home Attending Physician: Anne Marie Dempsey MD Admitting Physician: Anne Marie Dempsey MD Referring Physician: Not on Staff, Referring [...] 0 Refills, Maintenance, 06/03/20 17:34:00 EST, Film, [facility]/pharmacy #[id number], Partial fill upon patient request if the prescription is for a schedule II opioid drug., 1 patch Top... Start Date: 06/03/20 Status: Ordered Lidoderm 5% film 1 patch, Topically, Daily, remove patches after 12 hours, # 30 patch, 0 Refills, Maintenance, 08/29/20 16:54:00 EDT, [facility]/pharmacy #[id number], Partial fill upon patient request if the prescription is for aschedule II opioid drug., 1 patch Topically Daily,I... Start Date: 08/29/20 Status: Ordered Protonix 40 mg oral delayed release tablet 1 tablet = 40 mg, By Mouth, 2 times a day, # 60 tablet, 0 Refills, Maintenance, 11/17/17 10:03:35 EDT, EC Tablet Start Date: 11/17/17 Stop Date: 12/17/17 Status: Ordered Sertraline = 100 mg, By Mouth, Daily, 0 Refills, Maintenance, 02/27/18 13:06:20 EST Start Date: 02/27/18 Status: Ordered Vitamin D 44842 iu oral capsule 50,000 International_Units, 1, capsule, By Mouth, Every week, # 12 capsule, Refills 0, Tot. Refills0, Maintenance, 08/28/19 15:57:00 EDT, Route to Pharmacy Electronically, [facility]/pharmacy #[id number], 180.3,cm, 08/28/19 15:15:00 EDT, Height, 108.18, kg, ... Start Date: 08/28/19 Stop Date: 11/20/19 Status: Ordered Problem List Condition Effective Dates Status Health Status Inform ant Diverticulitis(Confirmed) 1 Active Inguinal hernia(Confirmed) Active Lactose intolerance(Confirmed) Active Obese class II(Confirmed) Active 1two episodes Results Radiology Reports * Exam Date Time Procedure Performing Provider Status 06/21/21 5:52 PM Chest 2 Views Frontal and Lat Jett Huntley; Anna (Verified) Notes: (Chest 2 Views Frontal and Lat) Reason For Exam: Chest Pain;Other: RESULT: Chest 2 Views Frontal and Lat Chest 2 Views Frontal and Lat Hx of Present Illness: pt presents to ed for MUSE and nausea. fall approx 9 days ago. seen at pain clinic [facility] today and told doc about muse and nausea instructed to come to ed. pt a ox4. answers slowly. c o nausea no vomitting, dizziness, MUSE. unsteady gait.; Reason: Other:; Chest Pain; ClinicalQuestion(s): CHF COMPARISON: 06/03/2020 FINDINGS: LINES AND TUBES: None. LUNGS AND PLEURA: Clear lungs. Normal pulmonary vascularity. No pleural effusion. No pneumothorax. HEART, MEDIASTINUM AND DAYA: Heart is normal in size. Normal upper mediastinal and hilar contour. BONES AND SOFT TISSUES: No acute abnormality. IMPRESSION: No acute abnormality. WSN: [id number] Ordering Physician: Amna Valencia Dictated By: Sony Castro MD Dictated Date/Time: 06/21/21 5:59 pm Reviewed By: Sony Castro MD Signed By: Sony Castro MD Signed Date/Time: 06/21/21 5:59 pm Transcribed By: RHYS Transcribed Date/Time: 06/21/21 5:56 pm Vital Signs Most recent to oldest [Reference Range]: 1 2 3 Height 180 cm (06/21/21 8:45 PM) 180 cm (06/21/21 4:24 PM) 180 cm (06/21/21 3:56 PM) Weight 125 kg (06/21/21 8:45 PM) 125 kg (06/21/21 4:24 PM) 125 kg (06/21/21 3:56 PM) Oxygen Saturation [94-100 %] 98 % (06/21/21 8:45 PM) 100 % (06/21/21 5:52 PM) 97 % (06/21/21 4:24 PM) Pulse Rate [55-90 bpm] 70 bpm (06/21/21 8:45 PM) 70 bpm (06/21/21 5:52 PM) 72 bpm (06/21/21 4:24 PM) Body Mass Index [18.5-24.99] 38.58 *>HHI* (06/21/21 3:56 PM) Blood Pressure [90-138/55-84 mm Hg] 154/73mm Hg *H* (06/21/21 8:45 PM) 157/71mm Hg *H* (06/21/21 5:52 PM) 159/74mm Hg *H* (06/21/21 4:24 PM) Respiratory Rate [16-30 br/min] 20 br/min (06/21/21 8:45 PM) 20 br/min (06/21/21 5:52 PM) 20 br/min (06/21/21 4:24 PM) Temperature [96.8-100.4 DegF] 98.0 DegF (06/21/21 8:45 PM) 97.7 DegF (06/21/21 4:24 PM) 97.4 DegF (06/21/21 3:56 PM) Mode of Delivery (Oxygen) Room air (06/21/21 8:45 PM) Room air (06/21/21 5:52 PM) Room air (06/21/21 4:24 PM) Blood pressure sites Arm, left (06/21/21 5:52 PM) Arm, left (06/21/21 4:24 PM) Arm, right (06/21/21 3:56 PM) Temperature Route Oral (06/21/21 4:24 PM) Oral (06/21/21 3:56 PM) Dry Weight 125 kg (06/21/21 8:45 PM) 125 kg (06/21/21 4:24 PM) 125 kg (06/21/21 3:56 PM) Weight Obtained Via Patient/family state d (06/21/21 3:56 PM) Dry Weight Obtained Via Patient/family s tated (06/21/21 3:56 PM) Social History Social History Type Response Smoking Status Never (less than 100 in lifetime) entered on: 02/27/18 Sex
--- OUTSIDE RECORDS SUMMARY | 2023-01-23 10:33 | XMS_ITS | Continuity of Care Document ---
Author Name Unknown Organization [facility] ter Address [address] [place] [address]- Care Team Providers Care Nursing Care Attendant Name Role Phone Juanito DOUGLASS, Nitin Primary Care Physician Encounter [facility] [place] Date(s): 08/29/20 - 08/29/[address] [address]- Discharge Disposition: A-D/C Home Attending Physician: Lis nEglish MD Admitting Physician: Lis English MD Referring Physician: Not on Staff, Referring [...] 0 Refills, Maintenance, 06/03/20 17:34:00 EST, Film, [facility]/pharmacy #[id number], Partial fill upon patient request if the prescription is for a schedule II opioid drug., 1 patch Top... Start Date: 06/03/20 Status: Ordered Lidoderm 5% film 1 patch, Topically, Daily, remove patches after 12 hours, # 30 patch, 0 Refills, Maintenance, 08/29/20 16:54:00 EDT, [facility]/pharmacy #[id number], Partial fill upon patient request if [...] Start Date: 02/27/18 Status: Ordered Vitamin D 87817 iu oral capsule 50,000 International_Units, 1, capsule, By Mouth, Every week, # 12 capsule, Refills 0, Tot. Refills0, Maintenance, 08/28/19 15:57:00 EDT, Route to Pharmacy Electronically, [facility]/pharmacy #[id number], 180.3,cm, 08/28/19 15:15:00 EDT, Height, 108.18, kg, 06/0... Start Date: 08/28/19 Stop Date: 11/20/19 Status: Ordered Problem List Condition Effective Dates Status Health Status Inform ant Diverticulitis(Confirmed) 1 Active Inguinal hernia(Confirmed) Active Lactose intolerance(Confirmed) Active 1two episodes Vital Signs Most recent to oldest [Reference Range]: 1 2 3 Height 180 cm (08/29/20 10:01 AM) Weight 111.7 kg (08/29/20 10:01 AM) Oxygen Saturation [94-100 %] 100 % (08/29/20 3:24 PM) 99 % (08/29/20 10:01 AM) 100 % (08/29/20 9:57 AM) Pulse Rate [55-90 bpm] 62 bpm (08/29/20 3:24 PM) 79 bpm (08/29/20 10:01 AM) 100 bpm *H* (08/29/20 9:57 AM) Body Mass Index [18.5-24.99] 34.48 *>HHI* (08/29/20 10:01 AM) Blood Pressure [90-138/55-84 mm Hg] 160/72mm Hg *H* (08/29/20 3:24 PM) 147/82mm Hg *H* (08/29/20 10:01 AM) Respiratory Rate [16-30 br/min] 16 br/min (08/29/20 3:24 PM) 16 br/min (08/29/20 10:01 AM) Temperature [96.8-100.4 DegF] 97.5 DegF (08/29/20 3:24 PM) 98.4 DegF (08/29/20 10:01 AM) Mode of Delivery (Oxygen) Room air (08/29/20 3:24 PM) Room air (08/29/20 10:01 AM) Blood pressure sites Arm, right (08/29/20 3:24 PM) Arm, right (08/29/20 10:01 AM) Temperature Route Oral (08/29/20 3:24 PM) Oral (08/29/20 10:01 AM) Dry Weight 111.7 kg (08/29/20 10:01 AM) Weight Obtained Via Standing scale (08/29/20 10:01 AM) Dry Weight Obtained Via Standing scale (08/29/20 10:01 AM) Social History Social History Type Response Smoking Status Never (less than 100 in lifetime) entered on: 02/27/18 Sex
--- OUTSIDE RECORDS SUMMARY | 2023-01-23 10:33 | XMS_ITS | Continuity of Care Document ---
Author Name Unknown Organization [facility] ter Address [address] [place] [address]- Care Team Providers Care Janitor Supervisor Name Role Phone Nitin Solomon MD Primary Care Physician Encounter [facility] [place] Date(s): 06/18/20 - 06/18/[address] [address]- Encounter Diagnosis Epistaxis(Final) - 06/18/20 Discharge Disposition: A-D/C Home Attending Physician: Steve Kevin MD Admitting Physician: Steve Kevin MD Referring Physician: Not on Staff, Referring [...] 0 Refills, Maintenance, 06/03/20 17:34:00 EST, Film, [facility]/pharmacy #[id number], Partial fill upon patient request if the prescription is for a schedule II opioid drug., 1 patch Top... Start Date: 06/03/20 Status: Ordered Protonix 40 mg oral delayed release tablet 1 tablet = 40 mg, By Mouth, 2 times a day, # 60 tablet, 0 Refills, Maintenance, 11/17/17 10:03:35 EDT, EC Tablet Start Date: 11/17/17 Stop Date: 12/17/17 Status: Ordered Sertraline = 100 mg, By Mouth, Daily, 0 Refills, Maintenance, 02/27/18 13:06:20 EST Start Date: 02/27/18 Status: Ordered Vitamin D 14820 iu oral capsule 50,000 International_Units, 1, capsule, By Mouth, Every week, # 12 capsule, Refills 0, Tot. Refills0, Maintenance, 08/28/19 15:57:00 EDT, Route to Pharmacy Electronically, [facility]/pharmacy #[id number], 180.3,cm, 08/28/19 15:15:00 EDT, Height, 108.18, kg, 06/0... Start Date: 08/28/19 Stop Date: 11/20/19 Status: Ordered Problem List Condition Effective Dates Status Health Status Inform ant Diverticulitis(Confirmed) 1 Active Inguinal hernia(Confirmed) Active Lactose intolerance(Confirmed) Active 1two episodes Vital Signs Most recent to oldest [Reference Range]: 1 2 3 Weight 107 kg (06/18/20 10:37 AM) 107 kg (06/18/20 9:26 AM) 107 kg (06/18/20:01 AM) Oxygen Saturation [94-100 %] 98 % (06/18/20 10:37 AM) 98 % (06/18/20: AM) 97 % (06/18/20: AM) Pulse Rate [55-90 bpm] 67 bpm (06/18/20 10:37 AM) 81 bpm (06/18/20:26 AM) 73 bpm (06/18/20: AM) Blood Pressure [90-138/55-84 mm Hg] 136/87mm Hg (06/18/20 10:37 AM) 162/91mm Hg *H* (06/18/20: AM) 165/97mm Hg *H* (06/18/20: AM) Respiratory Rate [16-30 br/min] 16 br/min (06/18/20 10:37 AM) 18 br/min (06/18/20: AM) 22 br/min (06/18/20: AM) Temperature [96.8-100.4 DegF] 97.7 DegF (06/18/20 10:37 AM) 97.7 DegF (06/18/20: AM) Mode of Delivery (Oxygen) Room air (06/18/20 10:37 AM) Room air (06/18/20: AM) Room air (06/18/20:01 AM) Blood pressure sites Arm, right (06/18/20 10:37 AM) Arm, right (06/18/20: AM) Arm, right (06/18/20: AM) Temperature Route Oral (06/18/20 10:37 AM) Oral (06/18/20:26 AM) Oral 1 (06/18/20 9:01 AM) Dry Weight 107 kg (06/18/20 10:37 AM) 107 kg (06/18/20:26 AM) 107 kg (06/18/20 9:01 AM) Weight Obtained Via Patient/family state d (06/18/20 9:01 AM) Dry Weight Obtained Via Patient/family s tated (06/18/20 9:01 AM) 1Result Comment: unable to obtain oral temp, as pt is holding nose to stop the bleed and axillary keeps showing up unable to read. Social History Social History Type Response Smoking Status Never (less than 100 in lifetime) entered on: 02/27/18 Sex
--- OUTSIDE RECORDS SUMMARY | 2023-01-23 10:33 | XMS_ITS | Continuity of Care Document ---
Author Name Unknown Organization [facility] Address [address] [place] [id number]- Care Team Providers [place] Worker Name Role Phone Jenni Dixon Primary Care Physician Encounter [facility] [place] Date(s): 07/18/22 - 11/15/22 [facility] [address] [place] [id number]- Attending Physician: Wilber Metcalf MD Admitting Physician: Wilber Metcalf MD Referring Physician: Jenni Dixon Allergies, Adverse [...] 07/01/21 15:34:00 EDT, Route to Pharmacy Electronically, [facility], Partial fill upon patient [...] 0 Refills, Maintenance, 07/01/21 15:33:00 EDT, Patch, [facility], Partial fill upon patient [...] tablet, 0 Refills, Maintenance, 07/01/21 15:30:00EDT, Tablet, [facility], Partial fill upon patient request [...] Role: Primary Care Nurse Name: Hannah De L aVega RN Position: [facility] RN Member Role: Primary Care Nurse Name: Kalpana Ferrara RN Position: [facility] RN Member Role: Primary Care Nurse Name: Kate Muhammad RN Position: [facility] RN Member Role: Primary Care Nurse Name: Enoch Garg RN Position: [facility] RN Member Role: Primary Care Nurse Name: Rima López RN Position: [facility] RN Member Role: Primary Care Nurse Name: Ashley Kebede RN Position: [facility] RN Member Role: Primary Care Nurse Name: Courtney Sullivan RN Position: [facility] SN RN Member Role: Primary Care Nurse Name: Wilfrido Fraga RN Position: [facility] RN Member Role: Primary Care Nurse Name: Dora Salcedo RN Position: [facility] RN Member Role: Primary Care Nurse Name: Carolyn Brice RN Position: [facility] RN Member Role: Primary Care Nurse Name: Darlin Geller RN Position: [facility] RN Member Role: Primary Care Nurse Name: Jenni Dixon Position: Reference Physician Member Role: PCP Address: Address: [address] [place] [id number] Name: Karol Mary RN Position: [facility] Onco RN Member Role: Primary Care Nurse Name: Raven Clark RN Position: [facility] Finish Off Operator Member Role: Primary Care Nurse Care Team Related Persons Name: VINNY, LONNIE Address: [address] [place] [address] Name: ENOCH ADAIR Address: [address] [place] [address]
--- OUTSIDE RECORDS SUMMARY | 2023-01-23 10:33 | XMS_ITS | Continuity of Care Document ---
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 Start Date: 11/27/22 Status: Ordered ergocalciferol 36102 iu oral capsule 50,000 International_Units, 1, capsule, [...] gabapentin 300 mg oral capsule 300 mg, Capsule, By Mouth, 11/28/22 15:00:00 EDT Start Date: 11/28/22 Stop Date: 11/28/22 Status: Completed lidocaine 5% topical film 2 patch, Topically, [...] Refills, Maintenance, 11/28/22 13:55:00 EDT, REC Powder, [facility]/pharmacy #[id number], Partial fill upon [...] drug. Start Date: 11/27/22 Status: Ordered nystatin 519838 u/ml oral suspension 5 mL = 500,000 [...] 12/28/22 13:55:00 EDT, 11/28/22 13:55:00 EDT, Tablet, [facility]/pharmacy #[id number], Partial fill upon [...] class II Confirmed Active 1two episodes Results Radiology Reports * Exam Date Time Procedure Performing Provider Status 11/28/22 1:15 PM US Retroperitoneum Comp Maria D Hernández; Auth (Verified) Notes: (US Retroperitoneum Comp) Reason For Exam: Elevated White Count RESULT: US Retroperitoneum Comp US Retroperitoneum Comp Reason: Elevated White Count; Clinical Question(s): Chronic Renal Failure; Order Comment: COMPARISON: CT abdomen and pelvis 07/04/2022. FINDINGS: Right kidney: 9.2 cm in length. Slightly atrophic. No hydronephrosis. Lobular contour with areas ofscarring as seen on prior CT. No stones. No suspicious mass. Left kidney: 9.6 cm in length. Slightly atrophic. No hydronephrosis. Lobular contour with areas of scarring as seen on prior CT. No stones. No suspicious mass. Urinary bladder: Incompletely distended, but no evidence of stone, mass or debris. IMPRESSION: Bilateral atrophic and somewhat lobular kidneys compatible with chronic kidney disease. No acute process. I have personally reviewed the images and I agree with this report. WSN: [id number] Ordering Physician: Fanny Arizmendi Dictated By: Rima Cleveland DO Dictated Date/Time: 11/28/22 1:23 pm Reviewed By: Jordan England MD Signed By: Jordan England MD Signed Date/Time: 11/28/22 1:28 pm Transcribed By: RHYS Transcribed Date/Time: 11/28/22 1:20 pm * Exam Date Time Procedure Performing Provider Status 11/27/22 2:20 PM Chest 2 Views Frontal and Lat Yovanny Martell; Auth (Verified) Notes: (Chest 2 Views Frontal and Lat) Reason For Exam: Chest Pain;Other: RESULT: Chest 2 Views Frontal and Lat Chest 2 Views Frontal and Lat INDICATION: Patient reports he got a phone call this morning to report his abnormal labs to him andadivse him to to come to the ED. Patient reports he has chest discomfort, dizziness, neck pain, andnausea. COMPARISON: 07/04/2022. FINDINGS: LINES AND TUBES: Right-sided dual lumen catheter with tip in the right atrium, new from prior. LUNGS AND PLEURA: Low lung volumes with mild basilar atelectasis. No pleural effusion. No pneumothorax. HEART, MEDIASTINUM AND DAYA: Heart is normal in size. The aorta is uncoiled and calcified. BONES AND SOFT TISSUES: Mild degenerative changes of the spine. Multiple surgical clips overlying the upper abdomen. IMPRESSION: No acute abnormality. I have personally reviewed the images and I agree with this report. WSN: [id number] Ordering Physician: Billie Chou MD Dictated By: Felipe Bowman MD Dictated Date/Time: 11/27/22 2:37 pm Reviewed By: Cristy Deluna MD Signed By: Cristy Deluna MD Signed Date/Time: 11/27/22 2:42 pm Transcribed By: RHYS Transcribed Date/Time: 11/27/22 2:29 pm Vital Signs Most recent to oldest [Reference Range]: 1 2 3 Height 180 cm (11/27/22 1:36 PM) 180 cm (11/27/22 1:31 PM) Oxygen Saturation [94-100 %] 100 % (11/28/22 3:00 PM) 99 % (11/28/22 11:00 AM) 100 % (11/28/22 6:10 AM) Pulse Rate [55-90 bpm] 77 bpm (11/28/22 3:00 PM) 87 bpm (11/28/22 11:00 AM) 65 bpm (11/28/22 6:10 AM) Blood Pressure [90-138/55-84 mm Hg] 126/71mm Hg (11/28/22 3:00 PM) 134/79mm Hg (11/28/22 11:00 AM) 162/88mm Hg *H* (11/28/22 6:10 AM) Respiratory Rate [16-30 br/min] 20 br/min (11/28/22 4:25 PM) 20 br/min (11/28/22 3:33 PM) 13 br/min *L* (11/28/22 3:00 PM) Temperature [96.8-100.4 DegF] 98.7 DegF (11/28/22 3:00 PM) 98.7 DegF (11/28/22 11:00 AM) 98.2 DegF (11/28/22 6:07 AM) Mode of Delivery (Oxygen) Room air (11/28/22 3:00 PM) Room air (11/28/22 11:00 AM) Room air (11/28/22 6:10 AM) Blood pressure sites Arm, left (11/28/22 3:00 PM) Arm, left (11/28/22 11:00 AM) Arm, left (11/28/22 6:10 AM) Temperature Route Oral (11/28/22 3:00 PM) Oral (11/28/22 11:00 AM) Oral (11/28/22 6:07 AM) Dry Weight 100 kg (11/27/22 1:36 PM) 100 kg (11/27/22 1:31 PM) Dry Weight Obtained Via Patient/family s tated (11/27/22 1:31 PM) Social History Social History Type Response Smoking Status Never (less than 100 in lifetime) entered on: 02/27/18 Sex Admission evaluation note * Ramón DOUGLASS, Lorena: MODIFY Ni DOUGLASS, April: PERFORM Event Display: Admission Note Authored Date: [id number] Patient: ??DESHAUN VELAZQUEZ ? Age:??62 Years?Sex:??Male?:??1960?? Chief Complaint/Reason for Consultation Hyperkalemia History of Present Illness 62-year-old male??with pertinent history??of liver transplant??secondary to decompensated cirrhosisfrom alcohol use disorder??in 10/15,??ESRD was on dialysis,??presented with lethargy. ?? Patient reports??that the morning of 11/27??when he??was very lethargic,??muscle pain,??and neck pain??and just did not feel right.?? This [facility] Recommended him to call [facility].?? He was asked to obtain labs.?? As his labs were concerning for hyperkalemia??he was asked to present to the ER. He also reports nausea, vomiting, abdominal spasms.?? During my encounter??he started to develop??lower extremity??myoclonic??jerks??which were unintentional.?? He said that they were getting better and was worse??in the AM. ?? Of note patient was started on dialysis??since the beginning of this year.?? He has a right permacath??and usually receives dialysis??Sunday//Sunday??and in fact was scheduled??to get the p ermacath removed this week.?? His last dialysis was 2 weeks ago.?? 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 ?? He lives by himself and is independent of daily living activities since the??liver transplant surgery. ?? On my evaluation??I also noticed that??daycare??skin changes on bilateral lower extremity on the anterior garcia??which appeared to be at night, erythematous.?? The patient was unaware of this??and states that he has not noticed this. ?? ER course Vitals were remarkable for blood pressure of??130/70,??heart rate in the 80s??initially and then more than 100??sinus tachycardia, SPO2 of more than 94% on room air. EKG??did not have??significant changes of hyperkalemia.?? He was given Lasix 80 mg, calcium gluconate,??10 of regular insulin, Lokelma 10 mg. ??ED contacted Dr. Jensen??who recommended??inpatient??admission for further evaluation. He also was acidemic??and was started on D5 bicarb infusion. Review of Systems ENT: No ear discharge, ear pain, no neck swelling, no sore throat. Respiratory: No SOB, cough, sputum production.?? Cardiovascular: No chest pain, palpitations. Gastrointestinal: + abdominal pain, no vomiting, diarrhea.?? Genitourinary: No polyuria, dysuria. Musculoskeletal:??+ arthralgia, myalgia???s reported. Neuro: No Numbness, no tingling, no motor weakness, no sensory changes. Skin: No rash, pruritus reported. Hematologic: No increased tendency to bleed, purpura noted.?? Psychiatric: No agitated behavior, no depression, anxiety.?? All other systems were reviewed and are negative except for the ones mentioned above. ?? Objective Measurements?? Height: 180 cm (11/27/22) Dry Weight: 100 kg (11/27/22) ?? Vital Signs?? Temperature: 98.1 DegF (11/28/22 00:15:00) Temperature Route: Oral (11/28/22 00:15:00) Pulse Rate: 75 bpm (11/28/22 03:04:00) Respiratory Rate: 16 br/min (11/28/22 03:04:00) Systolic Blood Pressure: 135 mm Hg (11/28/22 03:04:00) Diastolic Blood Pressure: 83 mm Hg (11/28/22 03:04:00) Blood pressure sites: Arm, left (11/28/22 03:04:00) Mean Arterial Pressure: 105 mm Hg (11/27/22 13:31:00) Pulse Pressure: 52 mm Hg (11/28/22 03:04:00) Oxygen Saturation: 100 % (11/28/22 03:04:00) Mode of Delivery (Oxygen): Room air (11/28/22 03:04:00) Early Warning Score: 0 (11/28/22 03:05:24) ?? Intake/Output? 11/27 17:08 11/28 07:00 11/27 07:00 11/26 07:00 11/25 07:00 ?? 11/28 06:08 11/28 06:08 11/28 06:59 11/27 06:59 11/26 06:59 Intake ? 50 ?0 ? 50 ?0 ?0 Output ?0 ?0 ?0 ?0 ?0 Net Total ? 50 ?0 ? 50 ?0 ?0 ?? Physical Exam Vitals:?? 11/27/2022 13:36?Height ?180 cm 11/27/2022 13:36?Dry Weight ?100 kg ? 11/28/2022 06:10?Pulse Rate ?65 bpm 11/28/2022 06:10?Respiratory Rate ?14 br/min ? 11/28/2022 06:10?Systolic Blood Pressure ?162 mm Hg ? 11/28/2022 06:10?Diastolic Blood Pressure ?88 mm Hg ? 11/28/2022 06:10?Blood pressure sites ?Arm, left ? 11/28/2022 06:10?Mean Arterial Pressure ?113 mm Hg ? 11/28/2022 06:10?Pulse Pressure ?74 mm Hg ? 11/28/2022 06:10?Oxygen Saturation ?100 % ? 11/28/2022 06:10?Mode of Delivery (Oxygen) ?Room air ? General:??Alert, in no acute cardiopulmonary distress. Mental Status:??Oriented to person, place and time. Normal affect. Eyes:??Pupils are equal, round and reactive to light. Extraocular muscles intact. Ear, Nose and Throat:??Oropharynx clear, mucous membranes moist. Ears and nose without masses, lesions or deformities. Neck:??Supple, Full range of motion. Respiratory:??Clear to auscultation. No wheezing, rales or rhonchi. Cardiovascular:??Regular rate and rhythm, no murmurs, rubs or gallops. Gastrointestinal:??Abdomen soft, non-tender, non-distended. Normal bowel sounds. Neurologic:??Cranial nerves II-XII grossly intact. Moves all extremities spontaneously. Sensation intact bilaterally. Skin:??On bilateral lower extremity on the anterior garcia,??legs??which were noticed??with bilateralpitting edema up to the knee. Musculoskeletal:??No gross deformities, normal range of motion. ?? Assessment/Plan 62-year-old male with pertinent history??of liver transplant??secondary to decompensated cirrhosis from alcohol use disorder??in 10/15,??ESRD was on dialysis,??presented with lethargy was found to have symptomatic??hyperkalemia??with no significant EKG changes??admitted for further evaluation and management. ?? Hyperkalemic emergency??in the setting of ?ESRD Meets criteria??with muscle weakness??and potassium of more than 6.5. He was aggressively treated??with Lasix, insulin??calcium gluconate, Lokelma. The potassium??just down trended from 6.8-6.5. ?he has been in ??dialysis??and last session was 2 weeks ago.? Plan: -Will be administered another dose of Lasix 40, Lokelma??10 mg every 8 hours??insulin regular. -he also has??metabolic acidosis??and was started on??D5 bicarb infusion. ?plan to stop it if Bicarb and anion gap is closed. -??BMP every 4 hours. -Nephrology recommended, appreciate recommendations ?? Chronic Stable conditions Status post liver transplant:?continue prednisone 5 mg daily,?continue tacrolimus?6 mg twice daily??, ??continue mycophenolate mofetil 1000 mg twice daily Depression: Bupropion 100mg daily Peripheral neuropathy: gabapentin 300mg TID. ?? Quality Measures VTE Px: heparin 5000 Q8 Diet: renal diet Code Status; FULL Code (reviewed with patient) Med REc: done ?? Plan and care dicussed with attending Dr Melgar ?? April Bess PGY-2 Internal Medicine ??resident ?? The patient seen and examined on 11/27/22. The case reviewed in detail with admitting resident on this date. I reviewed and agree as above. Dvt, high risk. Lorena Melgar MD Histories Past Medical History/Problem List Active Problems??(4) Diverticulitis Inguinal hernia Lactose intolerance Obese class II ?? Past Surgical History Laparoscopic cholecystectomy: 02/28/18 Laparoscopic Repair of Left Indirect Inguinal Hernia with Graft or Prosthesis: 11/01/10 Robotic Laparoscopic Gastric Bypass ?? Social History Alcohol Details:??Use: Past. ??Other: Denies [...] Details:??Use: Never (less than 100 in lifetime). ?? Family History No family history recorded. Medications Home Medications Aspirin (Aspirin Low Dose 81 mg oral tablet, chewable)?1?tab(s)?81?Milligram?By Mouth?Daily BuPROpion (buPROPion 100 mg oral tablet)?1?tab(s)?100?Milligram?By Mouth Docusate (docusate sodium 100 mg oral capsule)?1?capsule?100?Milligram?By Mouth?2times a day?as needed?as needed for constipation Ergocalciferol (ergocalciferol 36551 iu oral capsule)?50,000?International Unit?1?capsule?By Mouth?Every week Folic Acid (folic acid 1 mg oral tablet)?1?Milligram?1?tablet?By Mouth?Daily?for 30?Days Furosemide (Lasix 20 mg oral tablet)?1?capsule?By Mouth?2 times a day?for 30?Days Gabapentin (gabapentin 300 mg oral capsule)?300?Milligram?1?capsule?By Mouth?3 times a day Midodrine (midodrine 10 mg oral tablet)?TAKE 2 TABLETS (20 MG TOTAL) BY MOUTH EVERY 8 HOURS. Multivitamin (Daily Ian oral tablet)?1?tab(s)?By Mouth?Daily Multivitamin With Iron (Iron 100 Plus)?1?tab(s)?By Mouth?Daily Mycophenolate Mofetil (mycophenolate mofetil 250 mg oral capsule)?4?capsule?1,000?Milligram?By Mouth?2 times a day Pantoprazole (Protonix 40 mg oral delayed release tablet)?1?tab(s)?40?Milligram?By Mouth?2 times a day?for 30?Days Polyethylene Glycol 3350 (polyethylene glycol 3350 oral powder for reconstitution)?17?gram?By Mouth?Daily?dissolve in water before taking Senna (Senna 8.6 mg oral tablet)?8.6?Milligram?1?tab(s)?By Mouth?Daily at bedtime Sodium Polystyrene Sulfonate (sodium polystyrene sulfonate oral and rectal powder)?PLEASE TAKE TWO DOSES OF KAYEXELATE 30 GRAMS BY MOUTH 4 HOURS APART. Sucralfate (Carafate 1 gm oral tablet)?2?gram?2?tablet?By Mouth?3 times a day before meals and bedtime?for 30?Days Tamsulosin (tamsulosin 0.4 mg oral capsule)?0.4?Milligram?1?capsule?By Mouth?Daily ?? Inpatient Medications Medications (21) Active SCHEDULED: (13) Aspirin 81 mg EC Tablet (aspirin 81 mg oral delayed release tablet) ??81 mg, By Mouth, Daily BuPROpion (BuPROPion IR 75 mg oral tablet) ??100 mg 1.333 tablet, By Mouth, Daily Folic Acid 1 mg Tablet (folic acid 1 mg oral tablet) ??1 mg, By Mouth, Daily Gabapentin 300 mg Capsule (gabapentin 300 mg oral capsule) ??300 mg, By Mouth, 3 times a day Heparin 5000 units/mL Inj (1 mL) (Heparin Inj) ??5,000 units 1 mL, Subcutaneous Injection, 3 times a day Mycophenolate 250 mg Capsule (mycophenolate mofetil 250 mg oral capsule) ??1,000 mg, By Mouth, 2 times a day NaCl 0.9% Flush 3ml (NaCL 0.9% Flush) ??3 mL, IV Push, Every 8 hours Nystatin 100,000 units/mL Susp UD (Nystatin 100,000 Units/mL Liquid) ??400,000 units 4 mL, Swish and Swallow, 4 times a day Pantoprazole 40 mg EC Tablet (pantoprazole 40 mg oral delayed release tablet) ??40 mg, By Mouth, Daily PredniSONE 5 mg Tablet (predniSONE 5 mg oral tablet) ??5 mg, By Mouth, Daily Sodium Zirconium 10 Gm Packet (Lokelma Packet) ??10 Gm 1 pack/packet, By Mouth, Every 8 hours Tacrolimus 1 mg Capsule (tacrolimus 1 mg oral capsule) ??6 mg, By Mouth, 2 times a day Tamsulosin 0.4 mg Capsule (tamsulosin 0.4 mg oral capsule) ??0.4 mg, By Mouth, Daily CONTINUOUS: (1) D5%W (1000 mL) Cont IV 1000 mL + Sodium Bicarbonate 8.4% ContIV 150 mEq (D5%W 1000 mL + Sodium Bicarbonate Cont IV 150 mEq) ??1,000 mL, IV Infusion, 50 mL/hr PRN: (7) Acetaminophen 325 mg Tablet (Acetaminophen Tablet) ??650 mg, By Mouth, Every 4 hours Dextromethorphan-Guaifenesin 20 mg-200 mg/10 mL Liqu UD (Robitussin DM Liquid) ??10 mL, By Mouth, Every 4 hours Melatonin 3 mg Tablet (Melatonin Tablet) ??3 mg, By Mouth, Daily at bedtime NaCl 0.9% Flush 3ml (NaCL 0.9% Flush) ??3 mL, IV Push, Every 8 hours Polyethylene Glycol 17 Gm Powder (MiraLax Powder) ??17 Gm 1 pack/packet, By Mouth, Daily Senna 8.6 mg / Docusate 50 mg tablet (Docusate/Senna Tablet) ??1 tablet, By Mouth, 2 times a day Simethicone 80 mg Chewable Tablet (Simethicone Tablet) ??80 mg, Chew, 3 times a day Results Recent Labs BLOOD COUNT & DIFF WBC 4.7 k/mm3 ()?? 11/27/2022 13:55 RBC 2.75 m/mm3 (Low)?? 11/27/2022 13:55 Hgb 8.3 Gm/dL (Low)?? 11/27/2022 13:55 Hct 28.7 % (Low)?? 11/27/2022 13:55 MCV 104.4 femtoliters (High)?? 11/27/2022 13:55 MCH 30.2 pg ()?? 11/27/2022 13:55 MCHC 28.9 g/dL (Low)?? 11/27/2022 13:55 Platelet Count 167 k/mm3 ()?? 11/27/2022 13:55 RDW-SD 65.1 femtoliters (High)?? 11/27/2022 13:55 MPV 9.9 femtoliters ()?? 11/27/2022 13:55 Nucleated RBC (Automated) 0.0 #/100 WBC'S ()?? 11/27/2022 13:55 Abs. NRBC 0.0 k/mm3 ()?? 11/27/2022 13:55 Abs. Neut 4.3 k/mm3 ()?? 11/27/2022 13:55 Abs. Lymph 0.3 k/mm3 (Low)?? 11/27/2022 13:55 Abs. [place] 0.1 k/mm3 (Low)?? 11/27/2022 13:55 Abs. Eo 0.0 k/mm3 ()?? 11/27/2022 13:55 Abs. Baso 0.0 k/mm3 ()?? 11/27/2022 13:55 Neut % 90.3 % (High)?? 11/27/2022 13:55 Lymph % 7.0 % (Low)?? 11/27/2022 13:55 [place] % 1.5 % (Low)?? 11/27/2022 13:55 Eos % 0.4 % ()?? 11/27/2022 13:55 Baso % 0.0 % ()?? 11/27/2022 13:55 Imm Gran 0.8 % ()?? 11/27/2022 13:55 Abs. Imm Gran 0.0 k/mm3 ()?? 11/27/2022 13:55 ?? CARDIAC Nt-Probnp 8021 pg/mL (High)?? 11/27/2022 13:55 High Sensitivity Troponin (HSTnT) 54 ng/L (Critical)?? 11/27/2022 13:55 ?? CHEM GENERAL Sodium 142 mmol/L ()?? 11/27/2022 21:40 Potassium 6.5 mmol/L (Critical)?? 11/27/2022 21:40 Chloride 116 mmol/L (High)?? 11/27/2022 21:40 Bicarbonate Level 14 mmol/L (Low)?? 11/27/2022 21:40 Anion Gap 12 ()?? 11/27/2022 21:40 Glucose Level 115 mg/dL (High)?? 11/27/2022 21:40 Glucose, POC 72 mg/dL ()?? 11/28/2022 00:15 BUN 23 mg/dL ()?? 11/27/2022 21:40 Creatinine-Blood 1.9 mg/dL (High)?? 11/27/2022 21:40 Estimated GFR Creatinine 40 ML/MIN/1.73 M2 ()?? 11/27/2022 21:40 Calcium 8.6 mg/dL ()?? 11/27/2022 21:40 Phosphorus 3.5 mg/dL ()?? 11/27/2022 21:40 Magnesium 1.8 mg/dL ()?? 11/27/2022 21:40 Protein, Total 5.2 Gm/dL (Low)?? 11/27/2022 21:40 Albumin 3.3 Gm/dL (Low)?? 11/27/2022 21:40 AG Ratio 1.7 ()?? 11/27/2022 21:40 Alkaline Phosphatase 90 units/L ()?? 11/27/2022 21:40 AST (SGOT) 12 units/L ()?? 11/27/2022 21:40 ALT (SGPT) 5 units/L ()?? 11/27/2022 21:40 Bilirubin, Total 0.3 mg/dL ()?? 11/27/2022 21:40 Vitamin B12 Level 464 pg/mL ()?? 11/27/2022 21:40 ?? COAG INR 1.1 ()?? 11/27/2022 08:30 Protime (PT) 11.2 seconds ()?? 11/27/2022 08:30 ?? HEME OTHER Hold Blue Top SPECIMEN DISCARDED AFTER 4 HOURS. ()?? 11/27/2022 21:40 ?? TOXICOLOGY/TDM Tacrolimus Level 10.8 ng/mL ()?? 11/27/2022 08:30 ?? URINE OTHER Est Creatinine Clearance 43.86 mL/min ()?? 11/27/2022 22:23 ?? VIROLOGY COVID-19 PCR Specimen Source NASAL ()?? 11/27/2022 17:05 COVID-19 PCR Result NEGATIVE ()?? 11/27/2022 17:05 ? EKG study * Event Display: ECG 12-Lead Authored Date: Please click on pdf link to open report * Event Display: ECG 12-Lead Authored Date: Ventricular Rate: 69 BPM Atrial Rate: 69 BPM P-R Interval: 130 ms QRS Duration: 82 ms Q-T Interval: 408 ms QTC Calculation(Bazett): 437 ms P [place]: 34 degrees R [place]: -9 degrees T [place]: 19 degrees Normal sinus rhythm Normal ECG When compared with ECG of 23-JUN-2022 11:13, QT has shortened Confirmed by BRENDAN CHRISTY MD ([id number]) on 11/28/2022 4:47:36 PM [place]: BRENDAN CHRISTY MD Consult note * Efrain DOUGLASS, Mahin Donatoaban: PERFORM Event Display: Consultation Note Authored Date: Patient: ??VELAZQUEZ, DESHAUN ? Age:??62 Years?Sex:??Male?:??1960?? Chief Complaint/Reason for Consultation Hyperkalemia History of Present Illness 62-year-old male??with??a history??of liver transplant??secondary to decompensated cirrhosis from alcohol use disorder??in 10/15,??WALTER was on dialysis,??presented with lethargy. Patient reports??that the morning of 11/27??when he??was very lethargic,??muscle pain,??and neck pain??and just did not feel right.?? This [facility]?? Recommended him to call [facility].?? He was asked to obtain labs.?? As his labs were concerning for hyperkalemia??he was asked to present to the ER. He also reports nausea, vomiting, abdominal spasms.?? During my encounter??he started to develop??lower extremity??myoclonic??jerks??which were unintentional.?? He said that they were getting better and was worse??in the AM. He??developed acute kidney injury and may have??2022. ??Underwent liver transplant in October 15.?? Hewas on hemodialysis and??dialysis was stopped 2 weeks ago since adequate renal function. Of note patient was started on dialysis??since the beginning of this year.?? He has a right permacath??and usually receives dialysis??Sunday//Sunday??and in fact was scheduled??to get the p ermacath removed this week.?? His last dialysis was 2 weeks ago.?? 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 He had hyperkalemia at time of admission he was given Lokelma. ??Repeat labs are pending. Family was at bedside. He has no specific complaints today. ?? He was on Bactrim double strength twice a day. ??He has not any spironolactone or NSAIDs. He has a history of hyperkalemia??prior to this admission. He is on Kayexalate twice a week in the outpatient setting. ??Last dose was on Sunday. Review of Systems No nausea or vomiting Had diarrhea No dyspnea No fever?? Objective Vital Signs?? Temperature: 98.7 DegF (11/28/22 11:00:00) Temperature Route: Oral (11/28/22 11:00:00) Pulse Rate: 87 bpm (11/28/22 11:00:00) Respiratory Rate:??15 br/min??Low (11/28/22 11:00:00) Systolic Blood Pressure: 134 mm Hg (11/28/22 11:00:00) Diastolic Blood Pressure: 79 mm Hg (11/28/22 11:00:00) Blood pressure sites: Arm, left (11/28/22 11:00:00) Mean Arterial Pressure: 113 mm Hg (11/28/22 06:10:00) Pulse Pressure: 55 mm Hg (11/28/22 11:00:00) Oxygen Saturation: 99 % (11/28/22 11:00:00) Mode of Delivery (Oxygen): Room air (11/28/22 11:00:00) Early Warning Score: 6 (11/28/22 11:05:43) ? Intake/Output? 11/27 17:08 11/28 07:00 11/27 07:00 11/26 07:00 11/25 07:00 ?? 11/28 11:49 11/28 11:49 11/28 06:59 11/27 06:59 11/26 06:59 Intake ?540 ?490 ? 50 ?0 ?0 Output ? 2500 ? 2500 ?0 ?0 ?0 Net Total ?-1960 ?-2009 ? 50 ?0 ?0 ? Physical Exam Comfortable Air entry equal Hrt: No gallop or rub Abd soft with BS Ext.1+ edema?? Assessment/Plan Diagnoses Hyperkalemia ??(E87.5) ?? 62-year-old male with a h/o of liver transplant??secondary to decompensated cirrhosis from alcohol use disorder??in 10/15,WALTER was on dialysis, comes in with hyperkalemia. ?? Recommendations. Check renal ultrasonogram. Rule out obstruction. ??Watch intake and output. Keep on low potassium diet. Add sodium bicarbonate 650 mg p.o. 3 times daily. Recheck potassium.?? If potassium is less than 5.5 he can be discharged home with Lokelma 10 g p.o.3 times week. If hyperkalemia is resistant to medical therapy he may require dialysis. Track down??baseline serum creatinine from [facility]. Follow-up with [facility] regarding liver transplant. She will follow along with the team. ??Thank you Histories Allergies Allergies ?(Active and Proposed Allergies [...] than 100 in lifetime). ? Family History No family history recorded. ? Medications Home Medications Acetaminophen (acetaminophen 325 mg oral tablet)?650?Milligram?2?tablet?By Mouth?Every 6 hours?as needed?pain Aspirin (Aspirin Low Dose 81 mg oral tablet, chewable)?1?tab(s)?81?Milligram?By Mouth?Daily Docusate (docusate sodium 100 mg oral capsule)?1?capsule?100?Milligram?By Mouth?2times a day?as needed?as needed for constipation Ergocalciferol (ergocalciferol 85512 iu oral capsule)?50,000?International Unit?1?capsule?By Mouth?Every week?on Mondays Gabapentin (gabapentin 300 mg oral capsule)?300?Milligram?1?capsule?By Mouth?3 times a day Lidocaine Topical (lidocaine 5% topical film)?2 patch?Topically?Daily?as needed?Pain, Mild?remove after 12 hours Methocarbamol (methocarbamol 750 mg oral tablet)?1?tab(s)?750?Milligram?By Mouth?4 times a day Multivitamin (Daily Ian oral tablet)?1?tab(s)?By Mouth?Daily Mycophenolate Mofetil (mycophenolate mofetil 250 mg oral capsule)?2?capsule?500?Milligram?By Mouth?2 times a day Nystatin (nystatin 574973 u/ml oral suspension)?5?Milliliter?500,000?unit(s)?By Mouth?4 times a day Oxycodone (oxyCODONE 5 mg oral tablet)?5?Milligram?1?tablet?By Mouth?Every 6 hours?as needed?as needed for pain Pantoprazole (pantoprazole 40 mg oral delayed release tablet)?1?tab(s)?40?Milligram?By Mouth?Daily Polyethylene Glycol 3350 (polyethylene glycol 3350 oral powder for reconstitution)?17?gram?By Mouth?Daily?dissolve in water before taking PredniSONE (predniSONE 5 mg oral tablet)?3?tab(s)?15?Milligram?By Mouth?Daily Senna (Senna 8.6 mg oral tablet)?8.6?Milligram?1?tab(s)?By Mouth?Daily at bedtime Sodium Polystyrene Sulfonate (sodium polystyrene sulfonate oral and rectal powder)?PLEASE TAKE TWO DOSES OF KAYEXELATE 30 GRAMS BY MOUTH 4 HOURS APART. Sulfamethoxazole/Trimethoprim (sulfamethoxazole-trimethoprim 400 mg-80 mg oral tablet)?1?tab(s)?By Mouth?Every Sunday, Sunday and Sunday Tacrolimus (tacrolimus 1 mg oral capsule)?6?capsule?6?Milligram?By Mouth?Every 12hours Tamsulosin (tamsulosin 0.4 mg oral capsule)?0.4?Milligram?1?capsule?By Mouth?Daily ValGANCiclovir (Valcyte 450 mg oral tablet)?450?Milligram?1?tablet?By Mouth?Daily ? Results Recent Labs BLOOD COUNT & DIFF WBC 3.4 k/mm3 (Low)?? 11/28/2022 05:18 RBC 2.33 m/mm3 (Low)?? 11/28/2022 05:18 Hgb 7.4 Gm/dL (Low)?? 11/28/2022 05:18 Hct 24.2 % (Low)?? 11/28/2022 05:18 MCV 103.9 femtoliters (High)?? 11/28/2022 05:18 MCH 31.8 pg ()?? 11/28/2022 05:18 MCHC 30.6 g/dL (Low)?? 11/28/2022 05:18 Platelet Count 127 k/mm3 (Low)?? 11/28/2022 05:18 RDW-SD 64.0 femtoliters (High)?? 11/28/2022 05:18 MPV 10.0 femtoliters ()?? 11/28/2022 05:18 Nucleated RBC (Automated) 0.0 #/100 WBC'S ()?? 11/28/2022 05:18 Abs. NRBC 0.0 k/mm3 ()?? 11/28/2022 05:18 Abs. Neut 2.3 k/mm3 ()?? 11/28/2022 05:18 Abs. Lymph 0.9 k/mm3 ()?? 11/28/2022 05:18 Abs. [place] 0.2 k/mm3 (Low)?? 11/28/2022 05:18 Abs. Eo 0.0 k/mm3 ()?? 11/28/2022 05:18 Abs. Baso 0.0 k/mm3 ()?? 11/28/2022 05:18 Neut % 67.4 % ()?? 11/28/2022 05:18 Lymph % 25.0 % ()?? 11/28/2022 05:18 [place] % 5.5 % ()?? 11/28/2022 05:18 Eos % 1.2 % ()?? 11/28/2022 05:18 Baso % 0.0 % ()?? 11/28/2022 05:18 Imm Gran 0.9 % ()?? 11/28/2022 05:18 Abs. Imm Gran 0.0 k/mm3 ()?? 11/28/2022 05:18 ?? CARDIAC Nt-Probnp 8021 pg/mL (High)?? 11/27/2022 13:55 High Sensitivity Troponin (HSTnT) 54 ng/L (Critical)?? 11/27/2022 13:55 ?? CHEM GENERAL Sodium 139 mmol/L ()?? 11/28/2022 05:18 Potassium 5.9 mmol/L (High)?? 11/28/2022 05:18 Chloride 115 mmol/L (High)?? 11/28/2022 05:18 Bicarbonate Level 17 mmol/L (Low)?? 11/28/2022 05:18 Anion Gap 8 ()?? 11/28/2022 05:18 Glucose Level 89 mg/dL ()?? 11/28/2022 05:18 Glucose, POC 98 mg/dL ()?? 11/28/2022 08:05 BUN 23 mg/dL ()?? 11/28/2022 05:18 Creatinine-Blood 2.0 mg/dL (High)?? 11/28/2022 05:18 Estimated GFR Creatinine 38 ML/MIN/1.73 M2 ()?? 11/28/2022 05:18 Calcium 8.6 mg/dL ()?? 11/28/2022 05:18 Phosphorus 4.1 mg/dL ()?? 11/28/2022 05:18 Magnesium 1.7 mg/dL ()?? 11/28/2022 05:18 Protein, Total 4.6 Gm/dL (Low)?? 11/28/2022 05:18 Albumin 2.9 Gm/dL (Low)?? 11/28/2022 05:18 AG Ratio 1.7 ()?? 11/28/2022 05:18 Alkaline Phosphatase 82 units/L ()?? 11/28/2022 05:18 AST (SGOT) 13 units/L ()?? 11/28/2022 05:18 ALT (SGPT) 5 units/L ()?? 11/28/2022 05:18 Bilirubin, Total 0.3 mg/dL ()?? 11/28/2022 05:18 Vitamin B12 Level 464 pg/mL ()?? 11/27/2022 21:40 ?? COAG INR 1.1 ()?? 11/27/2022 08:30 Protime (PT) 11.2 seconds ()?? 11/27/2022 08:30 ?? HEME OTHER Hold Blue Top SPECIMEN DISCARDED AFTER 4 HOURS. ()?? 11/27/2022 21:40 ?? TOXICOLOGY/TDM Tacrolimus Level 10.8 ng/mL ()?? 11/27/2022 08:30 ?? URINE OTHER Est Creatinine Clearance 41.66 mL/min ()?? 11/28/2022 06:35 ?? VIROLOGY COVID-19 PCR Specimen Source NASAL ()?? 11/27/2022 17:05 COVID-19 PCR Result NEGATIVE ()?? 11/27/2022 17:05 ? * Hermann Thorne MD: PERFORM, SIGN, VERIFY Event Display: Consultation Note Authored Date: [id number] Patient: DESHAUN VELAZQUEZ Age: 62 years Sex: Male : 1960 Associated Diagnoses: None Author: Mati DOUGLASS, Hermann [facility]ph[facility] Progress Note Interval History WALTER hyperkalemia with acidosis urine labs ordered Isotonic bicarb IVF PO bicarb full consult to follow Note * Markell García RN: PERFORM Event Display: Discharge/Transfer Note Hospital Authored Date: [id number] Nursing Discharge Note Entered On: 11/28/2022 16:42 EDT Performed On: 11/28/2022 16:30 EDT by Markell García RN Nursing Discharge Note 2 Discharge Time : 11/28/2022 16:30 EDT Discharge Level of Care at Discharge : Home/Skilled Nursing/Foster Care Patient Left Unit Via : Ambulatory Patient Accompanied Off Unit with : Responsible adult DC Instructions Provided & Signed by Pt : Yes Patient Understands D/C Instructions : Yes Verbalized Understanding of D/C Plan By : Patient Patient Instructions Discharge Signed : Yes Did Pt have Specialty Bed or Wound Vac : No Markell García RN - 11/28/2022 16:41 EDT * Fanny Arizmendi MD: PERFORM Event Display: Discharge/Transfer Note Hospital Authored Date: [id number] Patient: ??VELAZQUEZ, DESHAUN ? Age:??62 Years?Sex:??Male?:??1960?? Patient Information Discharge Location: [facility] Primary Care Physician: Jenni Dixon Admit Date/Time: 11/27/22 17:08 Discharge Disposition Discharge Disposition: Home: No Services Discharge Diagnosis Hyperkalemia (E87.5) ?? _ Discharge Medications Acetaminophen (acetaminophen 325 mg oral tablet)?650?Milligram?2?tablet?By Mouth?Every 6 hours?as needed?pain Aspirin (Aspirin Low Dose 81 mg oral tablet, chewable)?1?tab(s)?81?Milligram?By Mouth?Daily Docusate (docusate sodium 100 mg oral capsule)?1?capsule?100?Milligram?By Mouth?2times a day?as needed?as needed for constipation Ergocalciferol (ergocalciferol 53414 iu oral capsule)?50,000?International Unit?1?capsule?By Mouth?Every week?on Mondays Gabapentin (gabapentin 300 mg oral capsule)?300?Milligram?1?capsule?By Mouth?3 times a day Lidocaine Topical (lidocaine 5% topical film)?2 patch?Topically?Daily?as needed?Pain, Mild?remove after 12 hours Methocarbamol (methocarbamol 750 mg oral tablet)?1?tab(s)?750?Milligram?By Mouth?4 times a day Multivitamin (Daily Ian oral tablet)?1?tab(s)?By Mouth?Daily Mycophenolate Mofetil (mycophenolate mofetil 250 mg oral capsule)?2?capsule?500?Milligram?By Mouth?2 times a day Nystatin (nystatin 662266 u/ml oral suspension)?5?Milliliter?500,000?unit(s)?By Mouth?4 times a day Oxycodone (oxyCODONE 5 mg oral tablet)?5?Milligram?1?tablet?By Mouth?Every 6 hours?as needed?as needed for pain Pantoprazole (pantoprazole 40 mg oral delayed release tablet)?1?tab(s)?40?Milligram?By Mouth?Daily Polyethylene Glycol 3350 (polyethylene glycol 3350 oral powder for reconstitution)?17?gram?By Mouth?Daily?dissolve in water before taking PredniSONE (predniSONE 5 mg oral tablet)?3?tab(s)?15?Milligram?By Mouth?Daily Senna (Senna 8.6 mg oral tablet)?8.6?Milligram?1?tab(s)?By Mouth?Daily at bedtime sodium bicarbonate (sodium bicarbonate 650 mg oral tablet)?1?tab(s)?650?Milligram?ByMouth?3 times a day?for 30?Days Sodium Polystyrene Sulfonate (sodium polystyrene sulfonate oral and rectal powder)?PLEASE TAKE TWO DOSES OF KAYEXELATE 30 GRAMS BY MOUTH 4 HOURS APART. sodium zirconium cyclosilicate (Lokelma 10 g oral powder for reconstitution)?1?pack/packet?By Mouth?Every Sunday, Sunday and Sunday?do not take within 2 hours of other medications Sulfamethoxazole/Trimethoprim (sulfamethoxazole-trimethoprim 400 mg-80 mg oral tablet)?1?tab(s)?By Mouth?Every Sunday, Sunday and Sunday Tacrolimus (tacrolimus 1 mg oral capsule)?6?capsule?6?Milligram?By Mouth?Every 12hours Tamsulosin (tamsulosin 0.4 mg oral capsule)?0.4?Milligram?1?capsule?By Mouth?Daily ValGANCiclovir (Valcyte 450 mg oral tablet)?450?Milligram?1?tablet?By Mouth?Daily ? Medications Started Sodium bicarbonate and Lokelma Allergies Allergies ?(Active and Proposed Allergies Only) Lactose? (Severity: Unknown severity, Onset: Unknown) Latex? (Severity: Persistent Moderate, Onset: Unknown) ?Reactions: rash ? PCP Follow-Up/Heads-Up Follow-up labs in 1 week Hospital Course ??History of Present Illness 62-year-old male with a history of liver transplant secondary to decompensated cirrhosis from alcohol use disorder in 10/15, WALTER was on dialysis, presented with lethargy. Patient reports that the morning of 11/27 when he was very lethargic, muscle pain, and neck pain and just did not feel right.?? This prompted him to contact his liver transplant specialist at [facility].?? Recommended him to call [facility].?? He was asked to obtain labs.?? As his labs were concerning forhyperkalemia he was asked to present to the ER. He also reports nausea, vomiting, abdominal spasms.?? During my encounter he started to develop lower extremity myoclonic jerks which were unintentional.?? He said that they were getting better and was worse in the AM. He developed acute kidney injury and may have 2022.?? Underwent liver transplant in October 15.?? He was on hemodialysis and dialysis was stopped 2 weeks ago since adequate renal function. Of note patient was started on dialysis since the beginning of this year.?? He has a right permacath and usually receives dialysis Sunday//Sunday and in fact was scheduled to get the permacath removed this week.?? His last dialysis was 2 weeks ago.?? 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 He had hyperkalemia at time of admission he was given Lokelma ?? Patient was admitted with hyperkalemic emergency with a potassium of more than 6.5.?? He was aggressively treated with Lasix insulin and calcium gluconate and Lokelma.?? His potassium down trended from 6.8-6.5 later it was 5.5.?? Patient was seen by the renal team.?? Renal ultrasound was done did not show any obstruction.?? Repeat potassium levels were 5.5.?? Patient was not willing to stay at the hospital.?? He wanted to be followed by his [facility] team.?? Since the potassium was 5.5 by renal he can be discharged home with Lokelma 10 g to be taken 3 times a week on Sunday and Sunday.?? Also started on sodium bicarbonate 650 mg 3 times daily.?? Patient to take a low potassium diet. Patient to follow-up with the [facility] team Patient was urinating well. ?? Patient will be discharged home. Objective Assessment and Plan Discharge Planning:?? Home no services ? Measurements?? Height: 180 cm (11/27/22) Dry Weight: 100 kg (11/27/22) ? Vital Signs?? Temperature: 98.7 DegF (11/28/22 11:00:00) Temperature Route: Oral (11/28/22 11:00:00) Pulse Rate: 87 bpm (11/28/22 11:00:00) Respiratory Rate:??15 br/min??Low (11/28/22 11:00:00) Systolic Blood Pressure: 134 mm Hg (11/28/22 11:00:00) Diastolic Blood Pressure: 79 mm Hg (11/28/22 11:00:00) Blood pressure sites: Arm, left (11/28/22 11:00:00) Mean Arterial Pressure: 113 mm Hg (11/28/22 06:10:00) Pulse Pressure: 55 mm Hg (11/28/22 11:00:00) Oxygen Saturation: 99 % (11/28/22 11:00:00) Mode of Delivery (Oxygen): Room air (11/28/22 11:00:00) Early Warning Score: 6 (11/28/22 13:02:49) ? Intake/Output? 11/27 17:08 11/28 07:00 11/27 07:00 11/26 07:00 11/25 07:00 ?? 11/28 14:01 11/28 14:01 11/28 06:59 11/27 06:59 11/26 06:59 Intake ?880 ?830 ? 50 ?0 ?0 Output ? 2800 ? 2800 ?0 ?0 ?0 Net Total ?-1920 ?-1970 ? 50 ?0 ?0 ? . Physical Exam Physical Exam Comfortable Air entry equal Hrt: No gallop or rub Abd soft with BS Ext.1+ edema?? Consultants Renal with Dr. Stockton Pending Results Basic Metabolic Panel ordered on 11/28/2022 Creatinine ordered on 11/28/2022 Electrolytes ordered on 11/28/2022 Hold Lavender Tube (BB) ordered on 11/27/2022 Potassium Level ordered on 11/27/2022 Follow-Up Appointments Added Follow Up ?Time Frame ?Comments Rosa TIM, Jenni Frausto Patient Instructions Pt to FU at [facility] Patient to take sodium bicarbonate 650 mg 3 times a day Patient has been started on Lokelma 10 mg every other day on Sunday and Sunday next dose??tomorrow 11/29/2022. Post Discharge Care Diet: Other Code Status: ?? Full Resuscitation Condition: Fair Discharge ?11/28/22 13:54:00 EDT Discharge Prescriptions ?ePrescribed, ??11/28/22 13:54:00 EDT Home Health Face to Face ^HomeHealthFTF Results Discharge Labs BLOOD COUNT & DIFF WBC 3.4 k/mm3 (Low)?? 11/28/2022 05:18 RBC 2.33 m/mm3 (Low)?? 11/28/2022 05:18 Hgb 7.4 Gm/dL (Low)?? 11/28/2022 05:18 Hct 24.2 % (Low)?? 11/28/2022 05:18 MCV 103.9 femtoliters (High)?? 11/28/2022 05:18 MCH 31.8 pg ()?? 11/28/2022 05:18 MCHC 30.6 g/dL (Low)?? 11/28/2022 05:18 Platelet Count 127 k/mm3 (Low)?? 11/28/2022 05:18 RDW-SD 64.0 femtoliters (High)?? 11/28/2022 05:18 MPV 10.0 femtoliters ()?? 11/28/2022 05:18 Nucleated RBC (Automated) 0.0 #/100 WBC'S ()?? 11/28/2022 05:18 Abs. NRBC 0.0 k/mm3 ()?? 11/28/2022 05:18 Abs. Neut 2.3 k/mm3 ()?? 11/28/2022 05:18 Abs. Lymph 0.9 k/mm3 ()?? 11/28/2022 05:18 Abs. [place] 0.2 k/mm3 (Low)?? 11/28/2022 05:18 Abs. Eo 0.0 k/mm3 ()?? 11/28/2022 05:18 Abs. Baso 0.0 k/mm3 ()?? 11/28/2022 05:18 Neut % 67.4 % ()?? 11/28/2022 05:18 Lymph % 25.0 % ()?? 11/28/2022 05:18 [place] % 5.5 % ()?? 11/28/2022 05:18 Eos % 1.2 % ()?? 11/28/2022 05:18 Baso % 0.0 % ()?? 11/28/2022 05:18 Imm Gran 0.9 % ()?? 11/28/2022 05:18 Abs. Imm Gran 0.0 k/mm3 ()?? 11/28/2022 05:18 ?? CARDIAC Nt-Probnp 8021 pg/mL (High)?? 11/27/2022 13:55 High Sensitivity Troponin (HSTnT) 54 ng/L (Critical)?? 11/27/2022 13:55 ?? CHEM GENERAL Sodium 141 mmol/L ()?? 11/28/2022 12:23 Potassium 5.5 mmol/L (High)?? 11/28/2022 12:23 Chloride 112 mmol/L (High)?? 11/28/2022 12:23 Bicarbonate Level 20 mmol/L (Low)?? 11/28/2022 12:23 Anion Gap 9 ()?? 11/28/2022 12:23 Glucose Level 78 mg/dL ()?? 11/28/2022 12:23 Glucose, POC 98 mg/dL ()?? 11/28/2022 08:05 BUN 23 mg/dL ()?? 11/28/2022 12:23 Creatinine-Blood 2.0 mg/dL (High)?? 11/28/2022 12:23 Estimated GFR Creatinine 38 ML/MIN/1.73 M2 ()?? 11/28/2022 12:23 Calcium 9.1 mg/dL ()?? 11/28/2022 12:23 Phosphorus 4.1 mg/dL ()?? 11/28/2022 05:18 Magnesium 1.7 mg/dL ()?? 11/28/2022 05:18 Protein, Total 4.6 Gm/dL (Low)?? 11/28/2022 05:18 Albumin 2.9 Gm/dL (Low)?? 11/28/2022 05:18 AG Ratio 1.7 ()?? 11/28/2022 05:18 Alkaline Phosphatase 82 units/L ()?? 11/28/2022 05:18 AST (SGOT) 13 units/L ()?? 11/28/2022 05:18 ALT (SGPT) 5 units/L ()?? 11/28/2022 05:18 Bilirubin, Total 0.3 mg/dL ()?? 11/28/2022 05:18 Vitamin B12 Level 464 pg/mL ()?? 11/27/2022 21:40 ? HEME OTHER Hold Blue Top SPECIMEN DISCARDED AFTER 4 HOURS. ()?? 11/27/2022 21:40 ? URINE OTHER Est Creatinine Clearance 41.66 mL/min ()?? 11/28/2022 06:35 ? VIROLOGY COVID-19 PCR Specimen Source NASAL ()?? 11/27/2022 17:05 COVID-19 PCR Result NEGATIVE ()?? 11/27/2022 17:05 ?? Blood Glucose Trend Glucose Level: 78 mg/dL (11/28/22 12:23:00) Glucose Level: 89 mg/dL (11/28/22 05:18:00) Glucose Level: 85 mg/dL (11/28/22 05:18:00) Glucose Level:??115 mg/dL??High (11/27/22 21:40:00) Glucose, POC: 98 mg/dL (11/28/22 08:05:00) Glucose, POC: 72 mg/dL (11/28/22 00:15:00) Glucose, POC:??178 mg/dL??High (11/27/22 17:12:00) ? Microbiology ?? COVID-19 (2019 Novel Coronavirus) PCR?? Completed?? Source: Nasal Body Site: Nose Collected Dt/Tm: 11/27/2022 17:05 Last Updated Dt/Tm: 11/27/2022 21:52 ? RESULT: US Retroperitoneum Comp US Retroperitoneum Comp? Reason: Elevated White Count; Clinical Question(s): Chronic Renal Failure; Order Comment: ?? COMPARISON: CT abdomen and pelvis 07/04/2022. ?? FINDINGS:? Right kidney: 9.2 cm in length. Slightly atrophic. ??No hydronephrosis. Lobular contour with areas of scarring as seen on prior CT. No stones. No suspicious mass. ?? Left kidney: 9.6 cm in length. Slightly atrophic. ??No hydronephrosis. Lobular contour with areas of scarring as seen on prior CT. No stones. No suspicious mass. ?? Urinary bladder: Incompletely distended, but no evidence of stone, mass or debris. ? IMPRESSION:? Bilateral atrophic and somewhat lobular kidneys compatible with chronic kidney disease. No acute process. ? >40 minutes spent on discharge * Markell García RN: PERFORM Event Display: Patient Education/Instruction Authored Date: [id number] Inpatient Adult Discharge Instructions [address] [address] Name: DESHAUN VELAZQUEZ : 1960 Visit: 11/27/2022 17:08:00 Current Date: 11/28/2022 15:49 Account: [id number] Inpatient Adult Discharge Instructions We would like [...] and their families. Surveys are administered by [email or web address]. ?? If further treatment with your primary care physician or another doctor is recommended, it is important for you to keep the appointment. Call your primary care physician or return to the Emergency Department immediately if your condition worsens, fails to improve, or new symptoms develop. If you need to find a doctor, you can call [facility] for a referral at [phone] or toll free at [phone]) or log in to [email or web address] ?? [facility], in keeping with [facility] guidance, no longer requires face masks for staff, patientsor visitors in most situations. Similiar to time spent indoors at other locations, there is the chance that you were exposed to repiratory viruses during your time with us (such as flu or COVID-19). If you develop symptoms concerning for a viral respiratory infection, please seek testing (and treatment if indicated) from your medical provider or home test kit. ?? You can view and manage your care through the patient portal or by using a health care megan of your choosing. [employer] is a website that allows you to securely view your medical information including your hospital discharge summary, office visit summaries, medications and follow-up visits. You can also request appointments, renew medications, and request access to your medical information using a health care megan of your choosing, or just ask a question. You can enroll at [email or web address] or register during your next office visit. You have been discharged from [facility], Patient Care Unit: [facility]. If you have any questions regarding these instructions after you leave, please call us and we will be happy to assist you. [facility] Your Care Team Attending Physician Fanny Arizmendi MD Consulting Providers Sumi Urban DO; Mandie Jensen MD; Efrain DOUGLASS, Mahin Matt; Miguel Carter MD Discharging Providers Ugo DOUGLASS, Fanny Reason for Admission General medical Your Diagnosis Hyperkalemia Tests Performed Below is a partial list of the tests performed during your hospitalization. You may have had other tests and procedures not included in this list. Please discuss all test results with your provider. B Type Natriuretic Peptide B12 Vitamin Level Basic Metabolic Panel CBC w/ Differential Comprehensive Metabolic Panel COVID-19 (2019 Novel Coronavirus) PCR GLUCOSE POC High??Sensitivity??Troponin T HOLD BLUE TUBE Magnesium Level Phosphorus Level US Renal Comp XR Chest 2 Views Frontal and Lat Primary Care Provider Jenni Dixon Advance Directive Health Care Proxy on File Yes - Health Care Proxy Discharge Vitals Temperature: 98.7 DegF Height: 180 cm Pulse Rate: 77 bpm ?? Respiratory Rate: 20 br/min ?? Systolic Blood Pressure: 126 mm Hg ?? Diastolic Blood Pressure: 71 mm Hg ?? Oxygen Saturation: 100 % ?? Studies Pending All tests and labs ordered during this hospital stay have been completed unless listed below. Please discuss all pending results with your provider listed above in these instructions. ?? Basic Metabolic Panel Creatinine Electrolytes Hold Lavender Tube (BB) Potassium Level What to do next Instructions From Your Doctor Pt to FU at [facility] Patient to take sodium bicarbonate 650 mg 3 times a day Patient has been started on Lokelma 10 mg every other day on Sunday and Sunday next dose??tomorrow 11/29/2022. Discharge Orders Diet:??Other Code Status:?? Full Resuscitation Condition:??Fair You Need to Schedule the Following Appointments Follow Up with??Jenni Dixon Where: [address] [place] [address]- Discharge Medications DESHAUN VELAZQUEZ :1960 Visit Date:11/27/2022 Medications: Please continue your medications until treatment is completed or stopped by your provider. Medications not listed below should be discontinued. Discuss any questions related to medications with your provider. What How Much When Instructions Next Dose New sodium bicarbonate (sodium bicarbonate 650 mg oral tablet) 1 tab(s) Oral 3 times a day Duration: 30 Days Pickup at [facility]/pharmacy #[id number] 11/28/22 New sodium zirconium cyclosilicate (Lokelma 10 g oral powder for reconstitution) 1 pack/packet Oral Sunday, Sunday and Sunday do not take within 2 hours of other medications ?? Pickup at [facility]/pharmacy #[id number] 8a11/29/22 Changed Ergocalciferol (ergocalciferol 82804 iu oral capsule) 1 capsule Oral Every week on Mondays ?? 12/04/22 Changed Lidocaine Topical (lidocaine 5% topical film) 2 patch Topically Daily as needed for Pain , Mild remove after 12 hours ?? As Needed Changed Methocarbamol (methocarbamol 750 mg oral tablet) 1 tab(s) Oral 4 times a day 11/28/22 Changed Mycophenolate Mofetil (mycophenolate mofetil 250 mg oral capsule) 2 capsule Oral Twice a day 11/28/22 Changed Nystatin (nystatin 195725 u/ ml oral suspension) 5 Milliliter Oral 4 times a day 11/28/22 Changed Oxycodone (oxyCODONE 5 mg oral tablet) 1 tab(s) Oral Every 6 hours as needed for as needed for pain As Needed Changed Pantoprazole (pantoprazole 40 mg oral delayed release tablet) 1 tab(s) Oral Daily 11/29/22 Changed PredniSONE (predniSONE 5 mg oral tablet) 3 tab(s) Oral Daily 11/29/22 Changed Tacrolimus (tacrolimus 1 mg oral capsule) 6 capsule Oral Every 12 hours 11/28/22 Unchanged Acetaminophen (acetaminophen 325 mg oral tablet) 2 tab(s) Oral Every 6 hours as needed for pain As Needed Unchanged Aspirin (Aspirin Low Dose 81 mg oral tablet, chewable) 1 tab(s) Oral Daily 11/29/22 Unchanged Docusate (docusate sodium 100 mg oral capsule) 1 capsule Oral Twice a day as needed for as needed for constipation As Needed Unchanged Gabapentin (gabapentin 300 mg oral capsule) 1 capsule Oral 3 times a day 11/28/22 Unchanged Multivitamin (Daily Ian oral tablet) 1 tab(s) Oral Daily 11/29/22 Unchanged Polyethylene Glycol 3350 (polyethylene glycol 3350 oral powder for reconstitution) 17 gram Oral Daily dissolve in water before taking ?? 8am 11/29/22 Unchanged Senna (Senna 8.6 mg oral tablet) 1 tab(s) Oral Daily at Bedtime Bedtime 11/28/22 Unchanged Sodium Polystyrene Sulfonate (sodium polystyrene sulfonate oral and rectal powder) PLEASE TAKE TWO DOSES OF KAYEXELATE 30 GRAMS BY MOUTH 4 HOURS APART. ?? Resume Home Schedule Unchanged Sulfamethoxazole/ Trimethoprim (sulfamethoxazole-trimethoprim 400 mg- 80 mg oral tablet) 1 tab(s) Oral Sunday, Sunday and Sunday 8am 11/29/22 Unchanged Tamsulosin (tamsulosin 0.4 mg oral capsule) 1 capsule Oral Daily 8a 11/29/22 Unchanged ValGANCiclovir (Valcyte 450 mg oral tablet) 1 tab(s) Oral Daily 8a11/29/22 Pharmacy Information [facility]/pharmacy #[id number]: [address] [place] [address] [phone] ?? What How Much When Comments Stop Taking Lactulose (lactulose 10 gm/ 15 ml oral syrup) 30 Milliliter Oral Twice a day Hold if loose bowel movement more than 3 times and resume next day ?? Stop Taking Potassium Phosphate-Sodium Phosphate (Phos-NaK Oral Powder) 1 pack/packet Oral Twice a day Duration: 3 Days Stop Taking Spironolactone (spironolactone 50 mg oral tablet) 1 tab(s) Oral Daily Stop Taking Thiamine (thiamine 100 mg oral tablet) 1 tab(s) Oral Daily Duration: 14 Days Test Results Below is a partial list of the most recent Laboratory test results done prior to this discharge. You may have had other tests and procedures not included in this list. Please discuss all test resultswith your provider. Est Creatinine Clearance - 41.66 mL/min (11/28/2022) B Type Natriuretic Peptide (11/27/2022) ???Nt-Probnp - 8021 pg/mL B12 Vitamin Level (11/27/2022) ???Vitamin B12 Level - 464 pg/mL Basic Metabolic Panel (11/28/2022) ???Sodium - 141 mmol/L???Potassium - 5.5 mmol/L???Chloride - 112 mmol/L???Bicarbonate Level - 20 mmol/L???Anion Gap - 9???Glucose Level - 78 mg/dL???BUN - 23 mg/dL???Creatinine-Blood - 2.0 mg/dL???Estimated GFR Creatinine - 38 ML/MIN/1.73 M2???Calcium - 9.1 mg/dL CBC w/ Differential (11/28/2022) ???WBC - 3.4 k/mm3???RBC - 2.33 m/mm3???Hgb - 7.4 Gm/dL???Hct - 24.2 %???MCV - 103.9 femtoliters???MCH - 31.8 pg???MCHC - 30.6 g/dL???Platelet Count - 127 k/mm3???RDW-SD - 64.0 femtoliters???MPV - 10.0 femtoliters???Nucleated RBC (Automated) - 0.0 #/100 WBC'S???Abs. NRBC - 0.0 k/mm3???Abs. Neut - 2.3 k/mm3???Abs. Lymph - 0.9 k/mm3???Abs. [place] - 0.2 k/mm3???Abs. Eo - 0.0 k/mm3???Abs. Baso - 0.0 k/mm3???Neut % - 67.4 %???Lymph % - 25.0 %???[place] % - 5.5 %???Eos % - 1.2 %???Baso % - 0.0 %???Imm Gran - 0.9 %???Abs. Imm Gran - 0.0 k/mm3 Comprehensive Metabolic Panel (11/28/2022) ???Sodium - 139 mmol/L???Potassium - 6.1 mmol/L???Chloride - 114 mmol/L???Bicarbonate Level - 16 mmol/L???Anion Gap - 9???Glucose Level - 89 mg/dL???BUN - 24 mg/dL???Creatinine-Blood - 2.0 mg/dL???Estimated GFR Creatinine - 38 ML/MIN/1.73 M2???Calcium - 8.6 mg/dL???Protein, Total - 4.6 Gm/dL???Albumin - 2.9 Gm/dL???AG Ratio - 1.7???Alkaline Phosphatase - 82 units/L???AST (SGOT) - 13 units/L???ALT(SGPT) - 5 units/L???Bilirubin, Total - 0.3 mg/dL COVID-19 (2019 Novel Coronavirus) PCR (11/27/2022) ???COVID-19 PCR Specimen Source - NASAL???COVID-19 PCR Result - NEGATIVE GLUCOSE POC (11/28/2022) ???Glucose, POC - 98 mg/dL High??Sensitivity??Troponin T (11/27/2022) ???High Sensitivity Troponin (HSTnT) - 54 ng/L HOLD BLUE TUBE (11/27/2022) ???Hold Blue Top - SPECIMEN DISCARDED AFTER 4 HOURS. Magnesium Level (11/28/2022) ???Magnesium - 1.7 mg/dL Phosphorus Level (11/28/2022) ???Phosphorus - 4.1 mg/dL Allergies (NKA means No Known Allergies) Latex??(rash) Lactose Problems Active Problems??(10) Chronic Back Pain?? Diverticulitis?? Diverticulosis?? HTN?? Inguinal hernia?? Lactose intolerance?? Morbid Obesity?? Obese class II?? Restless Leg Syndrome?? Sleep Apnea?? Education Materials Below is the list of Educational Leaflet Providered with your Discharge Instructions. Valuables and Belongings I fully understand and agree that [facility] accepts no responsibility for all my personal [...] to send valuables and belongings home. ?? No Valuables/Belongings: No valuables/belongings present Review of Valuable and Belonging List: With patient Date for Pt to Sign Valuables/Belongings: 11/28/22 09:21:00 ?? Other Discharge Information ? Pulmonary Rehab Status?? Pulmonary Rehab Discharge Status?? Respiratory Rate: 20 br/min ? Common Emergency Awareness Tips IS [...] are strongly encouraged to quit. Please call [facility] [employer] Link at [phone] or [phone] ([phone]) or log in to [email or web address] for referrals to smoking cessation programs. ?? 558 Suicide & Crisis Lifeline is available 16/10 if you or someone you know needs to find a reason to keep living. By calling 748 you'll be connected to a skilled, trained counselor at a crisis center in your area. INPATIENT DISCHARGE INSTRUCTIONS SIGNATURE PAGE DESHAUN VELAZQUEZ Location:[facility] Registration Date and Time:11/27/2022 17:08 EDT Primary Care Physician: Jenni Dixon, Attending Physician: Fanny Arizmendi MD, Annamaria DESHAUN VELAZQUEZ, have received the above patient education materials/instructions and have verbalized understanding. If ambulance or transport services are being used I further acknowledge being given a choice of service. ?? If you need to contact me, please call me at this number: . 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 [address] Sodium Zirconium Cyclosilicate Powder For Oral Suspension Brands: [employer] Uses For high potassium levels. ?? Instructions Mix contents of the packet into a glass with at least 45 mL of water and stir well. Drink the mixture right away. If any powder is left in the glass, add more water, stir, and drink it right away to make sure all the medicine has been taken. After taking other medicines, wait at least 2 hours before taking this medicine. Do not take any other medicines for 2 hours after this medicine. This medicine will work best if you take it at about the same time every day. Store at room temperature away from heat, light, and moisture. Do not keep in the bathroom. This medicine can reduce the absorption of other medicines. Talk to your doctor or pharmacist aboutthe best times to use this product. If you forget to take a dose on time, take it as soon as you remember. If it is almost time for thenext dose, do not take the missed dose. Return to your normal schedule. Do not take 2 doses at one time. Drug interactions can change how medicines work or increase risk for side effects. Tell your healthcare providers about all medicines taken. Include prescription and wwhc-odj-vgndzoa medicines, vitamins, and herbal medicines. Speak with your doctor or pharmacist before starting or stopping any medicine. Tell your doctor if symptoms do not get better or if they get worse. This medicine contains sodium. If you are on a low sodium diet, consider this as part of your totalsodium diet. It is very important that you follow your doctor's instructions for all blood tests. ?? Cautions Tell your doctor and pharmacist if you ever had an allergic reaction to a medicine. Some patients with weak hearts may have worsening of symptoms. If you notice difficulty breathing, weight gain, or swelling of your legs or ankles, let your doctor know right away. Some patients taking this medicine have experienced serious side effects. Please speak with your doctor to understand the risks and benefits associated with this medicine. Do not use the medication any more than instructed. Tell the doctor or pharmacist if you are , planning to be , or . Do not share this medicine with anyone who has not been prescribed this medicine. ?? Side Effects The following is a list of some common side effects from this medicine. Please speak with your doctor about what you should do if you experience these or other side effects. ??? swelling of the legs, feet, and hands A few people may have an allergic reaction to this medicine. Symptoms can include difficulty breathing, skin rash, itching, swelling, or severe dizziness. If you notice any of these symptoms, seek medical help quickly. ?? Extra Please speak with your doctor, nurse, or pharmacist if you have any questions about this medicine. ?? [email or web address] IMPORTANT NOTE: This document tells you briefly how to take your medicine, but it does not tell youall there is to know about it. Your doctor or pharmacist may give you other documents about your medicine. Please talk to them if you have any questions. Always follow their advice. There is a more complete description of this medicine available in [place]ian. Scan this code on your smartphone or tablet or use the web address below. You can also ask your pharmacist for a printout. If you have any questions, please ask your pharmacist. The display and use of this drug information is subject to Terms of Use. Copyright(c) 2022 [employer]. ?? [employer]. All rights reserved. This information is not intended as a substitute for professional medical care. Always follow your healthcare professional's instructions. ?? * Markell García RN: PERFORM Event Display: Patient Education Leaflets Authored Date: [id number] Discharge Instructions for Hyperkalemia ?? 46613 Discharge Instructions for Hyperkalemia You have been diagnosed with hyperkalemia. This means you have a high level of potassium in your blood. Potassium is important to the function of the nerve and muscle cells. This includes the cells of the heart. But a high level of potassium in the blood causes serious problems. These include abnormal heart rhythms and even heart attack. Diet changes Eat less of these potassium-rich foods: ??? Bananas ??? Apricots, fresh or dried ??? Oranges and orange juice ??? Grapefruit juice ??? Tomatoes, tomato sauce, and tomato juice ??? Spinach ??? Green, leafy vegetables, including salad greens, kale, broccoli, chard, and collards ??? Melons of all kinds ??? Peas ??? Beans ??? Potatoes ??? Sweet potatoes ??? Avocados and guacamole ??? Vegetable juice (homemade or store-bought) and vegetable juice cocktail ??? Fruit juices ??? Nuts, including pistachios, almonds, peanuts, hazelnuts, [place] nuts, cashews, or mixed nuts ??? Lite or reduced sodium salt ?? Other home care ??? Tell your healthcare provider about all prescription and gpcv-guw-qedynwr medicines. Also tell them about herbal or dietary supplements you are taking. Certain??medicines and supplements can increase potassium levels. ??? Take all medicines exactly as directed. ??? Have your potassium levels checked regularly. ??? Keep all follow-up appointments. Your healthcare provider needsto monitor your condition closely. ??? Learn to take your own pulse. If your pulse is less than 60??beats per minute, greater than 100 beats per minute, or irregular, call your provider. ?? Follow-up Follow up with your healthcare provider, or as advised. ?? When to call your healthcare provider Call your healthcare provider right away??if you have any of the following: ??? Slow, irregular heartbeat ??? Fatigue ??? Dizziness ??? Lightheadedness ??? Confusion ??? Weakness ?? Call 911 Call 911 if you have any of these: ??? Chest pain ??? Fainting ??? Shortness of breath ?? Last Reviewed Date: 2021 ?? 5575-9493 [employer]. All rights reserved. This information is not intended as a substitute for professional medical care. Always follow your healthcare professional's instructions. ?? * Markell García RN: PERFORM Event Display: Patient Education Leaflets Authored Date: [id number] Hyperkalemia ?? [id number] Hyperkalemia Hyperkalemia is too much potassium in the blood. This most often occurs in people who take??certainmedicines or who have kidney disease. This condition often has no symptoms until levels of potassium become dangerously high. If symptomsdo occur, they include muscle weakness and changes in the heartbeat. A blood test is done to diagnose the problem. An ECG (electrocardiogram) may also be done to quickly look at the way the heart is b eating. If hyperkalemia is caused by a medicine, the healthcare provider may lower the dose or switch to a different medicine. A low-potassium diet may also be prescribed.??You may be prescribed a medicine that decreases potassium until your levels are normal. Home care ??? Be sure your healthcare provider knows about all of the medicines you take. This includes prescription and lobc-plb-bwxfpob medicines, supplements, herbs, and illegal drugs.??Follow your healthcare provider's advice about making changes to your medicines. ??? If a low-potassium diet has been prescribed, follow this closely. If you need help, ask to be referred to a dietitian for advice on how to follow this diet. Take any medicines prescribed. ?? Follow-up care Follow up with your healthcare provider. You may need a repeat blood test within the next??7 days. Schedule this as advised. ?? When to get medical advice Call your healthcare provider right away??if any of the following occur: ??? Nausea, vomiting, or diarrhea ??? Urinating only in small amounts or not urinating ??? Symptoms don't go away or get worse ?? Call 911 Call 911??if any of the following occur: ??? Fast or irregular heartbeat ??? Fainting, dizziness, or lightheadedness ??? Severe shortness of breath ??? Chest, arm, shoulder, neck or upper back pain ??? Trouble controlling your muscles or muscle weakness ?? Last Reviewed Date: 2022 ?? 0627-5616 [employer]. All rights reserved. This information is not intended as a substitute for professional medical care. Always follow your healthcare professional's instructions. ?? Patient Care team information Care Team Personnel Name: Lolita Stout RN Position: [facility] RN Member Role: Primary Care Nurse Name: Jazlyn Fu RN Position: [facility] SN RN Member Role: Primary Care Nurse Name: Hannah De La Vega RN Position: [facility] RN Member Role: Primary Care Nurse Name: Kalpana Ferrara RN Position: [facility] RN Member Role: Primary Care Nurse Name: Kate Muhammad RN Position: [facility] RN Member Role: Primary Care Nurse Name: Enoch Garg RN Position: [facility] RN Member Role: Primary Care Nurse Name: Rima López RN Position: [facility] RN Member Role: Primary Care Nurse Name: Ashley Kebede RN Position: [facility] RN Member Role: Primary Care Nurse Name: Courtney Sullivan RN Position: [facility] SN RN Member Role: Primary Care Nurse Name: Wilfrido Fraga RN Position: [facility] RN Member Role: Primary Care Nurse Name: Dora Salcedo RN Position: [facility] RN Member Role: Primary Care Nurse Name: Hermann Thorne MD Position: [facility] Renal MD Member Role: Lifetime Consulting Physician Address: Address: [address] [facility], [place] [address]- Name: Carolyn Brice RN Position: [facility] RN Member Role: Primary Care Nurse Name: Darlin Geller RN Position: [facility] RN Member Role: Primary Care Nurse Name: Jenni Dixon Position: Reference Physician Member Role: PCP Address: Address: [address] [place] [id number]- Name: Karol Mary RN Position: [facility] Onco RN Member Role: Primary Care Nurse Name: Raven Clark RN Position: [facility] Hospital Extruding Department Supervisor Member Role: Primary Care Nurse Name: Kyle OLIVEROS Attending Position: [facility] ED Medicine MD Name: Markell García RN Position: [facility] ED RN W/OE and Tasks Member Role: Patient Care Provider Care Team Related Persons Name: LONNIE CASILLAS Address: [address] [place] [address] Name: ENOCH ADAIR Address: [address] [address]
--- NOTE | 2023-01-23 10:49 | A.OFFVIS_ITS ---
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 Patient reports that he was previously seen about 15-20 years ago and was told he would need bilateral hip replacement. Complaints of constant numbness that travels down right his leg. States pain with walking, stair use or stepping down from a curb. He is unable to take Tylenol due to liver or NSAIDS due to damaged kidney. Allergies lactose Allergy (Verified 01/23/23 10:52) Abdominal Pain Medication List - Last Reconciled 01/23/23 by Everette Woods MD aspirin 1 tab PO DAILY carvedilol 3.125 mg PO BID ergocalciferol (vitamin D2) 1,250 mcg PO QWEEK multivitamin with folic acid 400 mcg (Daily-Ian (with folic acid)) 1 tab PO DAILY ondansetron HCl 4 mg PO Q8H PRN pantoprazole 40 mg PO DAILY prednisone 5 mg PO DAILY sulfamethoxazole-trimethoprim 400-80 mg tabs PO tamsulosin 0.4 mg PO DAILY trazodone 50 mg PO BEDTIME PFSH Surgical History (Updated 01/23/23 @ 10:50 by MYRTLE Arreola) Hx of liver transplant Physical Exam Vital Signs: BMI result Body Mass Index 26.8 Const Other: Well-nourished well-developed very friendly male awake alert and oriented x3 in no acute distress Extrem Other: Bilateral lower extremity examination shows good capillary refill, no skin lesions noted, normal sensation light touch Bilateral hip examination shows minimal discomfort with range of motion, tenderness over his 1st side, no overlying skin lesions Results Reviewed Results Reviewed: X-rays of the patient's bilateral hips show mild diffuse joint space narrowing, no acute bony abnormalities Assessment & Plan Assessment & Plan (1) Right hip pain: Code(s): M25.551 - Pain in right hip Plan: Mr. Goodrich presents with bilateral hip pains most likely due to early degenerative joint disease as well as greater trochanteric bursitis. I had a lengthy discussion with patient regarding the treatment options. At this point the patient's symptoms are tolerable to him. Activity modifications were discussed at length with the patient. He will follow up with me on an as-needed basis should his symptoms not plateau at an unacceptable level over the next few months. Feel free to call me at any time should questions regarding his orthopedic management arise. Thank you very much for asking me to see this very friendly gentleman. I spent 22 minutes in reviewing the patient's records and imaging studies, seeing the patient and documenting in the medical record. (2) Left hip pain: Code(s): M25.552 - Pain in left hip Orders: Orders XR hip LT min 2V Today M25.552 - Pain in left hip XR hip RT 1V Today M25.551 - Pain in right hip Coding Level of Care Code New Pt Level 2 (65002) Diagnoses Right hip pain M25.551 Left hip pain M25.552
[2023-01-23 10:59] VITALS: BMI 26.8
== END 2023-01-23 11:19 | disposition home or self-care (01) ==
LOC: HO.HOS 10:31
PROVIDERS: Visit Provider Orthopaedic Surgery
DX: M25.551 Pain in right hip (principal); M25.552 Pain in left hip
CPT/HCPCS: 99202

== ENCOUNTER 2023-01-23 10:52 | Outpatient (REF) | payer BC, SELFPAY ==
--- NOTE | ~2023-01-23 | XR_ITS ---
EXAMINATION: XR BILATERAL HIPS CLINICAL INFORMATION: Bilateral hip pain COMPARISON: None TECHNIQUE: AP view of the pelvis as well as frog lateral views of bilateral hips. 3 views total. FINDINGS: Coils characteristic of prior surgery such as hernia repair overlie the left pelvis. Moderate degenerative changes in bilateral hips with superior joint space narrowing and hypertrophic change, left greater than right. Vascular calcifications. Degenerative changes in bilateral sacroiliac joints. XR/XR hip RT 1V IMPRESSION: Moderate degenerative changes in the bilateral hips on the left greater than right. Additional imaging with CT scan or MRI should be considered for better visualization as these modalities are much more sensitive for detection of fracture or other underlying pathology.
--- NOTE | ~2023-01-23 | XR_ITS ---
EXAMINATION: XR BILATERAL HIPS CLINICAL INFORMATION: Bilateral hip pain COMPARISON: None TECHNIQUE: AP view of the pelvis as well as frog lateral views of bilateral hips. 3 views total. FINDINGS: Coils characteristic of prior surgery such as hernia repair overlie the left pelvis. Moderate degenerative changes in bilateral hips with superior joint space narrowing and hypertrophic change, left greater than right. Vascular calcifications. Degenerative changes in bilateral sacroiliac joints. XR/XR hip LT min 2V IMPRESSION: Moderate degenerative changes in the bilateral hips on the left greater than right. Additional imaging with CT scan or MRI should be considered for better visualization as these modalities are much more sensitive for detection of fracture or other underlying pathology.
== END 2023-01-23 10:53 | disposition home or self-care (01) ==
LOC: HO.HOSX 10:52
PROVIDERS: Visit Provider Orthopaedic Surgery
DX: M25.551 Pain in right hip (principal); M25.552 Pain in left hip
CPT/HCPCS: 73501; 73502

== ENCOUNTER 2024-04-26 16:49 | Emergency (ER) | payer BC, SELFPAY ==
[2024-04-26 17:03] VITALS: BP 133/85; PULSE 91; RESP 19; TEMP 36.6; O2SAT 99; BMI 25.1
--- OUTSIDE RECORDS SUMMARY | 2024-04-26 17:25 | XMS_ITS | Clinical Summary ---
Author Organization [facility] [address] [facility] Address [address] [place] [address] Phone Care Team Providers Care Insulation Engineman Name Role Phone Emilie Reed MD Primary Care Provider Allergies Active Allergy Reactions Criticality Noted Date Comments Lactose 02/04/2024 Latex, Natural Rubber 02/04/2024 Medications Medication Sig Dispensed Refills Start Date End Date Status pantoprazole (PROTONIX) 40 mg EC tablet Take 1 Tablet by mouth 2 times daily. Active tamsulosin (FLOMAX) 0.4 mg 24 hr capsule Take 1 Capsule by mouth daily. Take 30 mins after same meal every day. Active traZODone (DESYREL) 50 mg tablet Take 1 Tablet by mouth at bedtime. Active tacrolimus (PROGRAF) 1 mg capsule 01/28/2024 Active aspirin 81 mg chewable tablet 10/23/2023 Active carvediloL (COREG) 6.25 mg tablet Take 1 tablet (6.25 mg total) by mouth 2 (two) times a day with meals. 12/17/2023 Active Vitamin D3 25 mcg (1,000 unit) capsule Take 2 capsules (2,000 Units total) by mouth 1 (one) time each day. 01/14/2024 Active Daily-Ian, with folic acid, 400 mcg tablet 10/23/2023 Acti ve sodium bicarbonate 650 mg tablet TAKE 1 TABLET (648 MG TOTAL) BY MOUTH DAILY WITH FOOD. 10/28/2023 Active furosemide (LASIX) 20 mg tablet Take 1 tablet (20 mg total) by mouth 1 (one) time each day. 12/07/2023 Active prochlorperazine (COMPAZINE) 10 mg tablet Take 1 tablet (10 mg total) by mouth 3 (three) times a day if needed. 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 Diarrhea 02/04/2024 HTN (hypertension) 08/29/2021 Orthostatic hypotension 08/29/2021 Syncope 08/29/2021 Encounters Date Type Department Care Team Description 02/04/2024 1:00 PM EST Office Visit Gastroenterology - [address] [place] [address] Sophie Jacobs NP Diarrhea, unspecified type (Primary Dx) from Last 3 Months Surgical History Surgery Date Site/Laterality Comments GASTRIC BYPASS 2008 PROCEDURE: AL GASTRIC RSTCV W/BYP W/SM INT RCNSTJ LIMIT ABSRPJ CHOLECYSTECTOMY PROCEDURE: HISTORICAL CHOLECYSTECTOMY HERNIA REPAIR 2010 Left PROCEDURE: HISTORICAL HERNIA REPAIR/ING LIVER TRANSPLANTATION Medical History Medical History Date Comments Alcoholic gastritis DX:Alcoholic gastritis Anxiety and depression DX:Anxiet y and depression Chronic hip pain DX:Chronic hip pain Diverticulitis of colon DX:Diver ticulitis of colon Gallstones DX:Gallstones Kidney calculus DX:Kidney calcul us Major depressive disorder in partial remission (CMS/HCC) DX:Major depressive disorder in partial remission (HCC) Obesity DX:Obesity Osteoarthritis DX:Osteoarthriti s; COMMENT: hips RLS (restless legs syndrome) DX: RLS (restless legs syndrome) Thrombocytopenia (CMS/HCC) DX:Th rombocytopenia (HCC) Pancytopenia (CMS/HCC) DX:Pancyt openia (HCC) Cough DX:Cough BPH (benign prostatic hyperplasia) DX:BPH (benign prostatic hyperplasia) GERD without esophagitis DX:GERD without esophagitis Headache DX:Headache Lower extremity edema DX:Lower e xtremity edema Family History Medical History Relation Name Comments Heart attack Brother Heart attack Father Heart attack Maternal Grandfather Heart attack Mother Heart attack Paternal Grandfather Relation Name Status Comments Brother Father Maternal Grandfather Mother Paternal Grandfather Social History Tobacco Use Types Packs/Day Years Used Date Smoking Tobacco: Never Smokeless Tobacco: Never Tobacco Cessation:Counseling Given: Not Answered Alcohol Use Standard Drinks/Week Comments Not Currently 0 (1 standard drink = 0.6 oz pur e alcohol) Sex and Gender Information Value Date Recorded Sex Assigned at Not on file Gender Identity Not on file Sexual Orientation Not on file Job Start Date Occupation Industry Not on file Not on file Not on file Obstetrics History Last Filed Vital Signs Vital Sign Reading Time Taken Comments Blood Pressure - - Pulse - - Temperature - - Respiratory Rate - - Oxygen Saturation - - Inhaled Oxygen Concentration - - Weight 83 kg (183 lb) 02/04/2024 12:59 PM EST Height 180.3 cm (5' 11 ) 02/04/2024 12:59 PM EST Body Mass Index 25.52 02/04/2024 12:59 PM EST Plan of Treatment Health Maintenance Due Date Last Done Comments COVID-19 Vaccine (#1) 09/17/1967 Pneumococcal Vaccine: Pediat rics (0 to 5 Years) and At-Risk Patients (6 to 64 Years) (1 of 2 - PCV) 1968 DTaP,Tdap,and Td Vaccines (1 - Tdap) 1981 Zoster Vaccines (1 of 2) 1981 Cholesterol Screening (Lipid Panel) 02/21/2022 Colorectal Cancer Screening: Colonoscopy 02/21/2022 Depression Screening 02/21/2022 HIV Screening 02/21/2022 Hepatitis C Screening 02/21/2022 Social Influencers of Health Screening 02/21/2022 Hypertension/CHF/CAD Annual BMP Blood Test 03/09/2022 RSV Immunization Patients 60 + Years Old (1 - Risk 60-74 years 1-dose series) 2022 Influenza Vaccine (#1) 2023 HIB Vaccines Aged Out No longer eligi ble based on patient's age to complete this topic HPV Vaccines Aged Out No longer eligi ble based on patient's age to complete this topic Hepatitis A Vaccines Aged Out No long er eligible based on patient's age to complete this topic Hepatitis B Vaccines Aged Out No long er eligible based on patient's age to complete this topic IPV Vaccines Aged Out No longer eligi ble based on patient's age to complete this topic MMR Vaccines Aged Out No longer eligi ble based on patient's age to complete this topic Meningococcal ACWY Vaccine Aged Out N o longer eligible based on patient's age to complete this topic RSV Immunization Patients Un izabela 20 months Aged Out No longer eligible b ased on patient's age to complete this topic Varicella Vaccines Aged Out No longer eligible based on patient's age to complete this topic Care Teams Insulation Engineman Relationship Specialty Start Date End Date Emilie Reed MD PCP - General Internal Medicine 07/21/21
--- NOTE | 2024-04-26 17:42 | ED_ITS ---
HPI - Extremity Injury (Lower) General Chief Complaint: Extremity Injury, Lower Stated Complaint: fx right tibia/fibula sent for [facility] Time Seen by Provider: 04/26/24 17:18 History of Present Illness ED Provider: Tomy Mcneill DO HPI Narrative: 63-year-old male with past medical history of liver transplant on tacrolimus and bilateral hip replacement presents to the ED from urgent care due to concern for right-sided distal fibular spiral fracture and medial malleolar fracture. The patient states he slipped on ice and fell last night, twisting his ankle. He denies head trauma or loss of conscious or any other injuries. He denies numbness or weakness of his foot. He was able to ambulate although limp prior to evaluation by urgent care and was provided a posterior splint and crutches, sent here for further evaluation for orthopedic consultation. Patient has not had any pain medications for his fracture. Related Data Home Medications ?Medication ?Instructions ?Recorded ?Confirmed aspirin 81 mg chewable tablet 1 tab PO DAILY 01/23/23 01/23/23 carvedilol 3.125 mg tablet 3.125 mg PO BID 01/23/23 01/23/23 ergocalciferol (vitamin D2) 1,250 1,250 mcg PO QWEEK 01/23/23 01/23/23 mcg (50,000 unit) capsule multivitamin with folic acid 400 1 tab PO DAILY 01/23/23 01/23/23 mcg tablet (Daily-Ian (with folic acid)) ondansetron HCl 4 mg tablet 4 mg PO Q8H PRN 01/23/23 01/23/23 pantoprazole 40 mg tablet,delayed 40 mg PO DAILY 01/23/23 01/23/23 release prednisone 5 mg tablet 5 mg PO DAILY 01/23/23 01/23/23 sulfamethoxazole 400 tab PO 01/23/23 01/23/23 mg-trimethoprim 80 mg tablet tamsulosin 0.4 mg capsule 0.4 mg PO DAILY 01/23/23 01/23/23 trazodone 50 mg tablet 50 mg PO BEDTIME 01/23/23 01/23/23 Previous Rx's ?Medication ?Instructions ?Recorded naloxone 4 mg/actuation nasal 4 mg intranasal Q2M PRN opioid 04/26/24 spray (Narcan) overdose #2 ea oxycodone 5 mg capsule 5 mg PO Q6H PRN pain #12 caps 04/26/24 Allergies Allergy/AdvReac Type Severity Reaction Status Date / Time lactose Allergy Abdominal Verified 01/23/23 10:52 Pain latex Allergy Rash Verified 04/26/24 17:05 Review of Systems Review of Systems: Yes all other systems are reviewed and are negative [facility] Past Medical History Surgical History (Updated 01/23/23 @ 10:50 by MYRTLE Arreola) Hx of liver transplant Social History Social History Advance Directives: No Advance Directives Information Provided: No Do you have a plan to hurt others: No Plan Physical Exam Vital Signs: Vital Signs: Last Vital Signs Temp 98 F 04/26/24 19:29 Pulse 75 04/26/24 19:29 Resp 20 04/26/24 19:29 BP 170/84 H 04/26/24 19:29 Pulse Ox 100 04/26/24 19:29 O2 Del Method Room Air 04/26/24 19:29 BMI result Body Mass Index 25.1 Constitutional: ?Alert, oriented, speaking in full sentences , appears to be in acute distress HEENT: ?Normocephalic, atraumatic. Eyes: EOMI Neck: ?Supple Respiratory: ?no increased work of breathing Cardio: 2+ radial and DP pulses symmetrically, normal capillary refill GI: ?nondistended Back: ?Normal range of motion Skin: ?No rash, no lesions Neuro: ?Alert and oriented to person, place and time, moves all 4 extremities, able to wiggle his toes no focal deficits, 5/5 strength with full sensation intact of bilateral lower extremities Extremities: ?Decreased range of motion of the right lower extremity secondary to pain. There is a posterior splint in place. Compartments are soft. There is no tenderness over the hip or knee joints nor over the proximal right leg. There is tenderness to palpation located medially and laterally over the right ankle. Psych: ?Calm, alert and cooperative, appropriate behavior Medications Administered Discontinued Medications Generic Name Dose Route Start Last Admin Trade Name Freq PRN Reason Stop Dose Admin Oxycodone HCl 5 mg 04/26/24 17:50 04/26/24 17:56 Oxycodone Hcl Immed Release 5 Mg Tablet PO 04/26/24 17:51 5 mg ONCE ONE Administration Medical Decision Making Medical Decision Making MDM Narrative: Patient presenting with evaluation after urgent care noted a medial malleolar fracture as well as a spiral distal fibular fracture of the right ankle. The patient has no signs or symptoms suggestive of compartment syndrome and he is neurovascularly intact distally. He has no signs of unstable ankle. His pain h as been addressed with oxycodone with some improvement. X-ray imaging has been reviewed by me as well as search engine optimization specialist. There is no significantly widened ankle mortise and search engine optimization specialist agrees with plan to keep posterior splint in place and outpatient follow-up with strict elevation above the heart level. Given the patient's significant pain, he will previous prescribed a short course of oxycodone and is able to take 2 tablets of acetaminophen per day at home. He is not able to take NSAIDs due to his liver transplant. We provided instructions to return for any signs of compartment syndrome or worsening pain in general. Admission/Observation Consideration of admission/observation: Escalation of care including admission/observation considered Consult Healthcare Provider Management of the patient was discussed with: Director Of Outreach (Orthopedic credit collections specialist) Discharge Plan Discharge Clinical Impression: Ankle fracture Patient Disposition: Home, Self-Care Instructions: Ankle Fracture (ED) Additional Instructions: You were evaluated for a right ankle fracture of both your tibia and fibula. Please remain in the splint until you follow up with the orthopedic surgeon. Call their office on Sunday to arrange for an appointment. In the meantime, take the maximum dose of Tylenol that you can take in a given day and take the prescribed oxycodone for the next few days up to every [address] taking this medication. Additionally, walk using the crutches and avoid bearing weight. You can ice the ankle if this helps. Importantly, raised your leg above your heart while lying down to help reduce the swelling. Please return to the emergency department immediately if you have any numbness or tingling of your toes or foot, significantly worsening pain, more firmness noted of your leg or any other acute concerns or changes. Prescriptions: New oxycodone 5 mg capsule 5 mg PO Q6H PRN (Reason: pain) Qty: 12 0RF Rx Instructions: Partial Fill upon patient request. naloxone [Narcan] 4 mg/actuation spray,non-aerosol 4 mg intranasal Q2M PRN (Reason: opioid overdose) Qty: 2 0RF Rx Instructions: spray 1 dose into ONE nostril; alternate nostrils w each dose until help arrives No Action multivitamin with folic acid [Daily-Ian (with folic acid)] 400 mcg tablet 1 tab PO DAILY aspirin 81 mg tablet,chewable 1 tab PO DAILY prednisone 5 mg tablet 5 mg PO DAILY sulfamethoxazole-trimethoprim 400-80 mg tablet PO carvedilol 3.125 mg tablet 3.125 mg PO BID ondansetron HCl 4 mg tablet 4 mg PO Q8H PRN pantoprazole 40 mg tablet,delayed release (DR/EC) 40 mg PO DAILY trazodone 50 mg tablet 50 mg PO BEDTIME ergocalciferol (vitamin D2) 1,250 mcg (50,000 unit) capsule 1,250 mcg PO QWEEK tamsulosin 0.4 mg capsule 0.4 mg PO DAILY Referrals: Phillip Caputo MD [Physician] - (Right-sided fibular spiral fracture distally with right-sided medial malleolar fracture. Sustained on 04/25/2024) Print Language: Croatian
[2024-04-26] MEDS: oxyCODONE HCl Immed Release 5 MG TABLET PO (17:56)
[2024-04-26 19:29] VITALS: BP 170/84; PULSE 75; RESP 20; TEMP 36.6; O2SAT 100
[2024-04-26 19:40] VITALS: BP 170/84; PULSE 75; RESP 20; TEMP 36.6; O2SAT 100
== END 2024-04-26 19:41 | disposition home or self-care (01) ==
PROVIDERS: Emergency Provider Emergency Medicine; PCP Nurse Practitioner
DX: S82.51XA Displaced fracture of medial malleolus of right tibia, initial encounter for closed fracture (principal); S82.441A Displaced spiral fracture of shaft of right fibula, initial encounter for closed fracture; W00.0XXA Fall on same level due to ice and snow, initial encounter; M25.571 Pain in right ankle and joints of right foot; Y93.9 Activity, unspecified; Y92.410 Unspecified street and highway as the place of occurrence of the external cause; Y99.9 Unspecified external cause status
CPT/HCPCS: 99283

== ENCOUNTER 2024-05-02 08:39 | Outpatient (REF) | payer BC, SELFPAY ==
--- NOTE | ~2024-05-02 | XR_ITS ---
EXAMINATION: XR ANKLE, RIGHT CLINICAL INFORMATION: M25.571 - Pain in right ankle and joints of right foot COMPARISON: None available. TECHNIQUE: AP, lateral, and mortise views of the right ankle. FINDINGS: Bimalleolar fracture. Spiral fracture of the distal fibular metadiaphysis with approximately 3 mm of lateral displacement of the distal fragment. Fracture extends to the sigmoid anastomosis level although the syndesmotic ligaments are likely intact. Comminuted avulsion fractures arising from the medial malleolus. Posterior malleolus appears intact. Mortise grossly appears intact. No asymmetry. Talar dome is normal. Calcaneus is intact. Subtalar joints appear normal. Moderate sized dorsal and plantar calcaneal spurs. There is a normal plantar arch. Normal midfoot and imaged forefoot. Soft tissue swelling about the ankle with ankle joint effusion. XR/XR ankle RT min 3V IMPRESSION: Bimalleolar fracture as described. No disruption of the mortise. Soft tissue swelling. Joint effusion. Electronically signed by: Jhonny Sena MD 05/02/2024 09:44 AM TYREE
--- OUTSIDE RECORDS SUMMARY | 2024-05-05 08:58 | XMS_ITS | Clinical Summary ---
Author Organization [facility] Address [address] [place] [id number] Care Team Providers Care Byproduct Engineer Name Role Phone Unavailable Primary Care Provider [...]
--- OUTSIDE RECORDS SUMMARY | 2024-05-05 08:58 | XMS_ITS | Clinical Summary ---
Author Organization [facility] [address] [facility] Address [address] [place] [address] Phone Care Team Providers Care Rn Private Duty Name Role Phone Emilie Reed MD Primary Care Provider [phone] Allergies Active Allergy Reactions Criticality Noted Date Comments Lactose 02/04/2024 Latex, Natural Rubber 02/04/2024 Medications pantoprazole (PROTONIX) 40 mg EC tablet Take 1 Tablet by mouth 2 times daily. Active tamsulosin (FLOMAX) 0.4 mg 24 hr capsule Take 1 Capsule by mouth daily. Take 30 mins after same meal every day. Active traZODone (DESYREL) 50 mg tablet Take 1 Tablet by mouth at bedtime. Active tacrolimus (PROGRAF) 1 mg capsule 4 Active aspirin 81 mg chewable tablet 4 Active carvediloL (COREG) 6.25 mg tablet Take 1 tablet (6.25 mg total) by mouth 2 (two) times a day with meals. 4 Active Vitamin D3 25 mcg (1,000 unit) capsule Take 2 capsules (2,000 Units total) by mouth 1 (one) time each day. 4 Active Daily-Ian, with folic acid, 400 mcg tablet 4 Active sodium bicarbonate 650 mg tablet TAKE 1 TABLET (648 MG TOTAL) BY MOUTH DAILY WITH FOOD. 4 Active furosemide (LASIX) 20 mg tablet Take 1 tablet (20 mg total) by mouth 1 (one) time each day. 4 Active prochlorperazine (COMPAZINE) 10 mg tablet Take 1 tablet (10 mg total) by mouth 3 (three) times a day if needed. 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 Diarrhea 02/04/2024 HTN (hypertension) 08/29/2021 Orthostatic hypotension 08/29/2021 Syncope 08/29/2021 Encounters Date Type Department Care Team Description 02/04/2024 1:00 PM EST Office Visit Gastroenterology - [address] [place] [address] Sophie Jacobs, CB Diarrhea, unspecified type (Primary Dx) from Last 3 Months Surgical History Surgery Date Site/Laterality Comments GASTRIC BYPASS 2008 PROCEDURE: [place] GASTRIC RSTCV W/BYP W/SM INT RCNSTJ LIMIT [...] at Not on file Legal Sex Male 1:02 PM EST Gender Identity Not on file Sexual Orientation Not on file Obstetrics History Last Filed [...] Last Done Comments COVID-19 Vaccine (#1) 09/17/1967 DTaP,Tdap,and Td Vaccines (1 - Tdap) 1969 Pneumococcal Vaccine: 50+ Ye ars (1 of 2 - PCV) 1981 Pneumococcal Vaccine: Pediat rics (0 to 5 Years) and At-Risk Patients (6 to 64 Years) (1 of 2 - PCV) 1981 Zoster Vaccines (1 of 2) 1981 [...] patient's age to complete this topic Meningococcal B Vacine Aged Out No lo nger eligible based on patient's age to complete this topic RSV Immunization Patients Un izabela 20 months Aged Out No longer eligible b ased on patient's age to complete this topic Varicella Vaccines Aged Out No longer eligible based on patient's age to complete this topic Insurance [facility] Care Teams Rn Private Duty Relationship Specialty Start Date End Date Emilie Reed MD PCP - General Internal Medicine 07/21/21
== END 2024-05-02 08:40 | disposition home or self-care (01) ==
LOC: HO.HOSX 08:39
PROVIDERS: Visit Provider Physician Assistant
DX: S82.844D Nondisplaced bimalleolar fracture of right lower leg, subsequent encounter for closed fracture with routine healing (principal); M25.571 Pain in right ankle and joints of right foot
CPT/HCPCS: 27808; 73610

== ENCOUNTER 2024-05-02 09:09 | Outpatient (AMB) | payer BC, SELFPAY ==
--- NOTE | 2024-05-02 09:22 | A.OFFVIS_ITS ---
Intake Visit Reasons: FC- ED f/u Right ankle fx DOI 04/25/24 Intake Note: Michael is a 63 year old make who presents today for evaluation of a right ankle fracture, DOI 04/25/24. Patient presented to ED 04/26/24 after slipping on ice and falling the night before, 04/25/24. Patient reports severe and excruciating pain, 10 on the 0-10 pain scale. Patient is visibly having difficulty ambulating with crutches. He was prescribed oxycodone at the ED but he does not have any more left. Allergies lactose Allergy (Verified 05/02/24 09:27) Abdominal Pain latex Allergy (Verified 05/02/24 09:27) Rash Medication List - Last Reconciled 05/02/24 by Ramiro Rahman PA-C aspirin 1 tab PO DAILY carvedilol 3.125 mg PO BID ergocalciferol (vitamin D2) 1,250 mcg PO QWEEK multivitamin with folic acid 400 mcg (Daily-Ian (with folic acid)) 1 tab PO DAILY naloxone 4 mg/actuation (Narcan) 4 mg intranasal Q2M PRN ondansetron HCl 4 mg PO Q8H PRN oxycodone 5 mg PO Q6H PRN pantoprazole 40 mg PO DAILY prednisone 5 mg PO DAILY sulfamethoxazole-trimethoprim 400-80 mg tabs PO tamsulosin 0.4 mg PO DAILY trazodone 50 mg PO BEDTIME HPI HPI - ED f/u Right ankle fx DOI 04/25/24: Details: 63-year-old gentleman presents to the office today for an injury he sustained to his right ankle on 04/25/2024 after slipping on ice. Was seen at an emergency department and had x-rays which showed a distal fibular fracture. He was placed in a splint and referred to our office for ortho eval. Patient states he lives alone but is independent in all activities.. He had a liver transplant from ETOH abuse. He has chronic kidney disease. [facility] Medical History (Updated 05/02/24 @ 10:19 by Ramiro Rahman PA-C) Chronic kidney disease Surgical History (Updated 01/23/23 @ 10:50 by MYRTLE Arreola) Hx of liver transplant Review of Systems Const All systems reviewed & are unremarkable except as noted in HPI and below Physical Exam Const General: cooperative, healthy appearing, comfortable, no acute distress, well developed and alert Orientation/consciousness: patient oriented x3 HEENT Head: Yes normal to inspection, Yes normocephalic and Yes atraumatic Eyes General: appearance normal, both eyes and all related structures Neck Neck: Yes normal visual inspection and Yes no lymphadenopathy Resp Effort & Inspection: normal respiratory effort and able to speak in complete sentences Cardio Rate: regular rate Peripheral pulses: Peripheral pulses 2+ throughout GI Inspection: Yes normal to inspection Palpation (GI): Soft to palpation Skin General skin exam: no rashes or lesions noted Neuro General: patient oriented x3 Extrem Other: Right ankle normal to inspection he does have significant ecchymosis from the garcia down to the ankle. Moderate swelling around the ankle into the foot. Tenderness over the lateral malleolus into the syndesmosis. Pulses present sensation intact. Psych Appearance: grossly normal Mental Status: mental status grossly normal Office Procedures Casting/Splints 18277-Giged Leg splint application Procedure code (CPT) selection complete Results Reviewed Results Reviewed: X-rays of the right ankle obtained in the office today show a bimalleolar fracture with minimal displacement of the mortise. Assessment & Plan Assessment & Plan (1) Closed right ankle fracture: Code(s): S82.891A - Other fracture of right lower leg, initial encounter for closed fracture Category: Medical Plan: Patient was placed in a posterior leg splint today. I discussed the case with Harshal and explained the extent of the injury to the patient and options available which include surgical intervention. I explained the procedure in detail along with the length of recovery and rehab course. I explained the risk, benefits and alternatives. Risk including, but not limited to infection, blood clots, bleeding, non union or malunion and nerve/tissue damage to surrounding areas. The patient was enquiring about pain medication at this time, I advised against this and reassured the patient he will be medicated postoperatively. I answered all their questions and with their understanding they have consented to move forward with Operative Fixation of right ankle . The patient will be booked accordingly. Orders: Orders XR ankle RT min 3V Today M25.571 - Pain in right ankle and joints of right foot Coding Level of Care Code New Pt Level 4 (01213) Complex EM visit Add On G2211 Diagnoses Closed right ankle fracture S82.891A CPT Codes Splint - CPT: 26627-Tocxz Leg splint application ([id number])
--- OUTSIDE RECORDS SUMMARY | 2024-05-02 09:36 | XMS_ITS | Clinical Summary ---
Author Organization [facility] Facility Address [address] [place] [id number] Care Team Providers Care Insurance Account Assistant Name Role Phone Unavailable Primary Care Provider Unavailabl e Social History Tobacco Use Types Packs/Day Years Used Date Smoking Tobacco: Never Assessed Sex and Gender Information Value Date Recorded Sex Assigned at Not on file Legal Sex Male 8:49 AM EDT Gender Identity Not on file Sexual Orientation Not on file Plan of Treatment Health Maintenance Due Date Last Done Comments Colorectal Cancer Screening: Annual FOBT 09/17/2011 Colorectal Cancer Screening: Colonoscopy 09/17/2011 Colorectal Cancer Screening: Sigmoidoscopy 09/17/2011 Influenza Vaccine (#1) 2023 Hepatitis B Vaccine Aged Out No longe r eligible based on patient's age to complete this topic Pneumococcal Vaccine: Pediat rics (0 to 5 Years) and At-Risk Patients (6 to 64 Years) Aged Out No longer eligible b ased on patient's age to complete this topic Insurance [facility]
--- OUTSIDE RECORDS SUMMARY | 2024-05-02 09:36 | XMS_ITS | Clinical Summary ---
Author Organization [facility] [address] [facility] Address [address] [place] [address] Phone Care Team Providers Care Nurse Midwife Name Role Phone Emilie Reed MD Primary Care Provider [phone] Allergies Active Allergy Reactions Criticality Noted Date [...] [address] [place] [address] Sophie Jacobs NP Diarrhea, unspecified type (Primary Dx) from Last 3 Months Surgical History Surgery Date Site/Laterality Comments GASTRIC BYPASS 2008 PROCEDURE: [place] GASTRIC RSTCV W/BYP W/SM INT RCNSTJ LIMIT [...] age to complete this topic Care Teams Nurse Midwife Relationship Specialty Start Date End Date Emilie Reed MD PCP - General Internal Medicine 07/21/21
== END 2024-05-02 10:05 | disposition home or self-care (01) ==
PROVIDERS: PCP Nurse Practitioner; Visit Provider Physician Assistant
DX: S82.841A Displaced bimalleolar fracture of right lower leg, initial encounter for closed fracture (principal)
CPT/HCPCS: 27808; 99204

== ENCOUNTER → 2024-05-02 09:10 | Outpatient (BNV) | payer BC, SELFPAY | PROVIDERS: Visit Provider Radiology Diagnostic Radiology | DX: S82.891A Other fracture of right lower leg, initial encounter for closed fracture (principal); W00.0XXA Fall on same level due to ice and snow, initial encounter | CPT/HCPCS: 73610 ==

== ENCOUNTER 2024-05-06 11:02 | Day surgery (SDC) | payer BC, SELFPAY ==
--- NOTE | 2024-05-05 14:12 | HO.ANESPROP2 ---
Documented by User: Araceli Clay NP 05/05/24 14:23 HPI - Anesthesia Eval Consult details Narrative: 63yo M for Right Ankle Fracture ORIF s/p liver transplant 09/2022 d/t ETOH cirrhosis. No ETOH since. Req'd dialysis post op but none since 2022 Information requested from [facility]. Not available at the time of chart review. Labs ordered for DOS. Pt to also request medical records to be sent for review. PMFSH Active Problems Active Problems: All Active Problems Closed right ankle fracture (Acute) Right hip pain (Acute) Left hip pain (Acute) Past Medical History Medical History Chronic kidney disease Surgical History Surgical History History of bilateral total hip arthroplasty Hx of liver transplant Social History Social History Advance Directives: No Advance Directives Information Provided: Yes Meds Allergies Allergy/AdvReac Type Severity Reaction Status Date / Time lactose Allergy Abdominal Verified 05/02/24 09:27 Pain latex Allergy Rash Verified 05/02/24 09:27 Home Medications ?Medication ?Instructions ?Recorded ?Confirmed ?Last Taken ?Type aspirin 81 mg chewable tablet 1 tab PO DAILY 01/23/23 05/02/24 Unknown History carvedilol 3.125 mg tablet 3.125 mg PO BID 01/23/23 05/02/24 Unknown History ergocalciferol (vitamin D2) 1,250 1,250 mcg PO QWEEK 01/23/23 05/02/24 Unknown History mcg (50,000 unit) capsule multivitamin with folic acid 400 1 tab PO DAILY 01/23/23 05/02/24 Unknown History mcg tablet (Daily-Ian (with folic acid)) ondansetron HCl 4 mg tablet 4 mg PO Q8H PRN 01/23/23 05/02/24 Unknown History pantoprazole 40 mg tablet,delayed 40 mg PO DAILY 01/23/23 05/02/24 Unknown History release sulfamethoxazole 400 tab PO 01/23/23 05/02/24 Unknown History mg-trimethoprim 80 mg tablet tamsulosin 0.4 mg capsule 0.4 mg PO DAILY 01/23/23 05/02/24 Unknown History trazodone 50 mg tablet 50 mg PO BEDTIME 01/23/23 05/02/24 Unknown History tacrolimus 1 mg capsule, 3 mg BID 05/05/24 05/05/24 Unknown History immediate-release Assessment and Plan Assessment Anesthesia Assessment: Chart Reviewed Documented by User: Anaid Nathan MD 05/06/24 13:05 PMF Past Medical History Medical History Chronic kidney disease Family History Family history of problems with anesthesia: No Surgical History Surgical History History of bilateral total hip arthroplasty Hx of liver transplant History of Problems with Anesthesia: No Social History Social History Advance Directives: No Advance Directives Information Provided: Yes Meds Allergies Allergy/AdvReac Type Severity Reaction Status Date / Time lactose Allergy Abdominal Verified 05/02/24 09:27 Pain latex Allergy Rash Verified 05/02/24 09:27 Home Medications ?Medication ?Instructions ?Recorded ?Confirmed ?Last Taken ?Type aspirin 81 mg chewable tablet 1 tab PO DAILY 01/23/23 05/02/24 Unknown History carvedilol 3.125 mg tablet 3.125 mg PO BID 01/23/23 05/02/24 Unknown History ergocalciferol (vitamin D2) 1,250 1,250 mcg PO QWEEK 01/23/23 05/02/24 Unknown History mcg (50,000 unit) capsule multivitamin with folic acid 400 1 tab PO DAILY 01/23/23 05/02/24 Unknown History mcg tablet (Daily-Ian (with folic acid)) ondansetron HCl 4 mg tablet 4 mg PO Q8H PRN 01/23/23 05/02/24 Unknown History pantoprazole 40 mg tablet,delayed 40 mg PO DAILY 01/23/23 05/02/24 Unknown History release sulfamethoxazole 400 tab PO 01/23/23 05/02/24 Unknown History mg-trimethoprim 80 mg tablet tamsulosin 0.4 mg capsule 0.4 mg PO DAILY 01/23/23 05/02/24 Unknown History trazodone 50 mg tablet 50 mg PO BEDTIME 01/23/23 05/02/24 Unknown History tacrolimus 1 mg capsule, 3 mg BID 05/05/24 05/05/24 Unknown History immediate-release Exam Airway Mallampati Class: II TM Dist: >3cm Neck ROM: Full Heart: rrr Lungs: cta Assessment and Plan Assessment Anesthesia Assessment: Anesthesia Plan Discussed Final Anesthetic Review Family History of Problems with Anesthesia: No History of Problems with Anesthesia: No NPO: Yes ASA Class: III Final Preanesthetic Review: No Changes in Pt Med Stat, Meds/Allgs Chart Reviewed, Consent Obtained/Reviewed and Anes Risks/Benef Reviewed Patient Risk: Intermediate Procedure Risk: Intermediate Anesthetic Plan Anesthetic Plan: GA and Regional Block Disposition: Standard PACU
--- NOTE | ~2024-05-06 | FL_ITS ---
EXAMINATION: FL GUIDANCE ONLY HISTORY: RIGHT ANKLE ORIF COMPARISON: Correlation is made with plain films of the right ankle dated 05/02/2024. TECHNIQUE: Fluoroscopy time: 0.1 minutes. Cumulative Dose: 0.403 mGy. DAP: 0.89199 mGym2 Images: 6. FINDINGS: Images demonstrate internal fixation of the previously seen fracture of the distal fibula with a sideplate and multiple orthopedic screws. FL/FL guidance in OR IMPRESSION: Fluoroscopy during procedure. Please see procedure report for additional information. Electronically signed by: Ken Alaniz MD 05/07/2024 07:02 AM TYREE WHELAN
--- OUTSIDE RECORDS SUMMARY | 2024-05-06 12:30 | XMS_ITS | Clinical Summary ---
Author Organization [facility] Facility Address [address] [place] [address] Care Team Providers Care Sand Miller Name Role Phone Unavailable Primary Care Provider [...] patient's age to complete this topic Insurance [facility]
--- OUTSIDE RECORDS SUMMARY | 2024-05-06 12:30 | XMS_ITS | Clinical Summary ---
Author Organization [facility] 299 [facility] Address [address] [place] [address] Phone Care Team Providers Care Practice Manager Name Role Phone Emilie Reed MD Primary Care Provider [phone] Allergies Active Allergy Reactions Criticality Noted Date [...] [address] [place] [address] Sophie Jacobs, CB Diarrhea, unspecified type (Primary Dx) from Last 3 Months Surgical History Surgery Date Site/Laterality Comments GASTRIC BYPASS 2008 PROCEDURE: [place] GASTRIC RSTCV W/BYP W/SM INT RCNSTJ LIMIT [...] patient's age to complete this topic Insurance [facility] ([facility]) Care Teams Practice Manager Relationship Specialty Start Date End Date Emilie Reed MD PCP - General Internal Medicine 07/21/21
[2024-05-06 13:23] VITALS: BMI 24.2
[2024-05-06 13:27] LABS: Hematocrit 34.3 % (42.0-52.0); Hemoglobin 11.4 g/dl (14.0-18.0); Mean Corpuscular HGB Conc 33.2 g/dl (31.0-36.0); Mean Corpuscular Volume 99.4 fL (80.0-98.0); Mean Platelet Volume 10.6 fL (9.4-12.4); Platelet Count 150 X10*3/uL (160-400); Red Blood Count 3.45 X10*6/uL (4.60-5.80); Red Cell Distribution Width 12.2 % (11.0-16.0); White Blood Count 3.7 X10*3/uL (4.8-10.8)
[2024-05-06 13:28] LABS: INTERNATIONAL NORM RATIO 1.1 (0.9-1.1); Prothrombin Time 12.3 SEC (10.9-12.4)
[2024-05-06 13:31] LABS: Partial Thromboplastin Time 35.8 SEC (26.0-36.8)
[2024-05-06 13:38] LABS: Alanine Aminotransferase 23 U/L (0-40); Albumin Level 4.4 g/dL (3.5-5.0); Alkaline Phosphatase 111 U/L (39-117); Anion Gap 12 (12-20); Aspartate Amino Transferase 20 U/L (5-37); Bilirubin Total 0.6 mg/dL (0.0-1.0); Blood Urea Nitrogen 36 mg/dL (9-16); Calcium 9.5 mg/dL (8.4-10.2); Carbon Dioxide 21 mmol/L (22-29); Chloride 119 mmol/L (96-108); Creatinine Clr Calc Pharmacy 43.2; Estimated Glomerular Filt Rate 36; Glucose Fasting 95 mg/dL (60-99); Potassium 4.9 mmol/L (3.3-5.1); Sodium 147 mmol/L (135-145); Total Protein 7.7 g/dL (6.5-8.0)
--- NOTE | 2024-05-06 13:38 | MHC.SHP ---
Pre-Procedural Eval Section A - 24 Hr Update-Section A only Date of Service: 05/06/24 The patient is an INPATIENT: No Changes since office visit: No Cold of Flu in the past 2 weeks, No New Medical Problems, No Changes in Medication and No Patient answered all questions The patient has been examined within 24 hours of the surgical procedure. The History & Physical has been completed within 30 days and I have reviewed it.: Yes Section B - Complete if H&P > 30 days Chief Complaint: Displaced bimalleolar fracture of right lower leg, Allergies: Allergies Allergy/AdvReac Type Severity Reaction Status Date / Time lactose Allergy Abdominal Verified 05/06/24 13:11 Pain latex Allergy Rash Verified 05/06/24 13:11 Plan I have reviewed the history and physical and performed a pertinent physical examination on my patient. No changes have occurred unless specified. Time Spent With Patient Time: Total time managing care of this patient today ____ minutes.
[2024-05-06 13:59] VITALS: BP 146/78; PULSE 69; RESP 15; TEMP 36.8; O2SAT 99
[2024-05-06] MEDS: Lactated Ringers 1,000 ML 100 ML IVCONT (14:01)
--- NOTE | 2024-05-06 18:29 | PM.OP ---
Brief Operative Note Date of Service: 05/06/24 Pre-op diagnosis: Right ankle fracture Post-op diagnosis: same Procedure: ORIF right lateral malleolus Implants: [place] pangea 5 hole lateral locking plate Surgeon: Phillip Caputo MD Anesthesia: GLMA and regional Was an Mine Exploration Engineer used for this Procedure?: No Estimated blood loss (mL): 10 Tourniquet time (min): 45 IV fluids (mL): 1,000 Pathology: none sent Condition: stable Disposition: PACU
[2024-05-06 18:30] VITALS: BP 137/75; PULSE 77; RESP 16; TEMP 36.6; O2SAT 97
[2024-05-06 18:35] VITALS: BP 139/80; PULSE 71; RESP 16; O2SAT 98
[2024-05-06 18:40] VITALS: BP 145/78; PULSE 67; RESP 16; O2SAT 99
[2024-05-06 18:45] VITALS: BP 142/76; PULSE 68; RESP 18; O2SAT 99
[2024-05-06 19:00] VITALS: BP 143/80; PULSE 70; RESP 18; TEMP 36.3; O2SAT 99
[2024-05-06] MEDS: oxyCODONE HCl Immed Release 5 MG TABLET PO (19:00)
--- NOTE | 2024-05-12 07:56 | W.PM.OPN ---
Operative Note Operative Note Date of Service: 05/06/24 Narrative: Date of Service: 05/06/24 Pre-op diagnosis: Right ankle fracture Post-op diagnosis: same Procedure: ORIF right lateral malleolus Implants: [place] pangea 5 hole lateral locking plate Surgeon: Phillip Caputo MD Anesthesia: GLMA and regional Was an Out Of School Hours Care Worker used for this Procedure?: No Estimated blood loss (mL): 10 Tourniquet time (min): 45 IV fluids (mL): 1,000 Pathology: none sent Condition: stable Disposition: PACU Procedure in detail: Patient was brought to the operating room and placed supine on the operative table. All bony prominences were well padded and a time-out was called to identify proper site proper procedure proper surgeon. IV antibiotics per weight were administered. I began by exsanguinating limb is slightly tourniquet to 300 mm Hg. I then made a standard posterolateral incision over the fibula. Full-thickness flaps were taken down to the fibular shaft and distal fibula. The fracture was identified and cleaned with a combination of curette, rongeur and irrigation. A lobster claw was used to provisionally reduce the fracture and a 5 hole distal fibular anterolateral Pangea plate was applied using standard AO technique. Distal unicortical locking screws and proximal bicortical screws were placed using standard AO technique. Biplanar fluoroscopy was used to confirm hardware position and fracture reduction. Once I was satisfied that both of these were acceptable I irrigated copiously and turned my attention to the syndesmosis. The syndesmosis was tested using external rotation test and was found to be stable. Therefore all instrumentation was removed and copious irrigation was performed. Absorbable suture and michelle were used for closure and the patient was placed into sterile dressings and a well-padded posterior splint. Tourniquet was let down and the patient was extubated brought to recovery room in stable condition there were no known complications.
== END 2024-05-06 19:21 | disposition home or self-care (01) ==
PROVIDERS: Nurse Practitioner; PCP Nurse Practitioner; Visit Provider Orthopaedic Surgery
PROC: (CPT 27792; principal; 2024-05-06 14:30)
DX: S82.841A Displaced bimalleolar fracture of right lower leg, initial encounter for closed fracture (principal); M25.571 Pain in right ankle and joints of right foot; W00.0XXA Fall on same level due to ice and snow, initial encounter; Y93.01 Activity, walking, marching and hiking; Y92.9 Unspecified place or not applicable; Y99.9 Unspecified external cause status; I12.9 Hypertensive chronic kidney disease with stage 1 through stage 4 chronic kidney disease, or unspecified chronic kidney disease; N18.9 Chronic kidney disease, unspecified; Z94.4 Liver transplant status; Z79.82 Long term (current) use of aspirin; Z79.899 Other long term (current) drug therapy; F10.11 Alcohol abuse, in remission; Z91.040 Latex allergy status; Z91.011 Allergy to milk products
CPT/HCPCS: 27792; 36415; 80053; 85027; 85610; 85730; C1713; J0131; J0665; J0690; J1100; J2003; J2250; J2405; J3010

== ENCOUNTER → 2024-05-06 11:02 | Outpatient (BNV) | payer BC, SELFPAY | PROVIDERS: PCP Nurse Practitioner; Visit Provider Orthopaedic Surgery | DX: S82.891A Other fracture of right lower leg, initial encounter for closed fracture (principal) | CPT/HCPCS: 27792 ==

== ENCOUNTER 2024-05-08 14:12 | Outpatient (AMB) | payer BC, SELFPAY ==
--- OUTSIDE RECORDS SUMMARY | 2024-05-08 14:15 | XMS_ITS | Clinical Summary ---
Author Organization [facility] Facility Address [address] [place] [address] Care Team Providers Care Perfect Bind Machine Operator Name Role Phone Unavailable Primary Care Provider [...] patient's age to complete this topic Insurance [facility]
--- OUTSIDE RECORDS SUMMARY | 2024-05-08 14:15 | XMS_ITS | Clinical Summary ---
Author Organization [facility] 299 [facility] Address [address] [place] [address] Phone Care Team Providers Care Record Maker Name Role Phone Emilie Reed MD Primary Care Provider [phone] Allergies Active Allergy Reactions Criticality Noted Date [...] (hypertension) 08/29/2021 Orthostatic hypotension 08/29/2021 Syncope 08/29/2021 Surgical History Surgery Date Site/Laterality Comments GASTRIC BYPASS 2008 PROCEDURE: [place] GASTRIC RSTCV W/BYP W/SM INT RCNSTJ LIMIT [...] 09/17/1967 DTaP,Tdap,and Td Vaccines (1 - Tdap) 1981 Pneumococcal Vaccine: 50+ Ye ars (1 of [...] age to complete this topic Insurance [facility] ([facility]) Care Teams Record Maker Relationship Specialty Start Date End Date Emilie Reed MD PCP - General Internal Medicine 07/21/21
--- NOTE | 2024-05-08 14:24 | A.OFFVIS_ITS ---
Intake Visit Reasons: OV-Rt Ankle ORIF 05/06/24 NE Intake Note: Michael 63 yr iold male presents today for his p/o visit for his right ankle ORIF from 05/06/[address]uto. States he is in a lot of pain 01/02. States he is elevating his leg and is taking his medication but its not helping with his pain. Allergies lactose Allergy (Verified 05/08/24 14:28) Abdominal Pain latex Allergy (Verified 05/08/24 14:28) Rash HPI HPI OV-Rt Ankle ORIF 05/06/24 NE: Details: 63 yo male returns to the office today s/p ORIF rt ankle 05/06/24 . He mentioned he is having worsening pain in the ankle, unsure if the splint is too tight. [facility] Medical History (Updated 05/08/24 @ 14:38 by Ramiro Rahman PA-C) Chronic nausea Diverticulitis Hx of cirrhosis HTN (hypertension) Chronic kidney disease Surgical History History of ankle surgery Hx of hand surgery Hx of colonoscopy Hx of gastric bypass Hx of bilateral inguinal hernia repair Hx of cholecystectomy Hx of liver transplant Social History Comment: medicated in PACU Patient Tobacco Use Status: Never used Tobacco Review of Systems Const All systems reviewed & are unremarkable except as noted in HPI and below Physical Exam Extrem Other: Right ankle incision clean, dry and intact. Minor swelling. Calf supple non tender. NVI. Office Procedures Casting/Splints [id number] Leg splint application Procedure code (CPT) selection complete Assessment & Plan Assessment & Plan (1) Closed right ankle fracture: Code(s): S82.891A - Other fracture of right lower leg, initial encounter for closed fracture Category: Medical Qualifiers: Encounter type: subsequent encounter Fracture healing: with routine healing Qualified Code(s): S82.891D - Other fracture of right lower leg, subsequent encounter for closed fracture with routine healing Plan: Incisions were clean and the ankle was padded well and he was placed in a posterior splint today. He will remain nonweightbearing and return to the office in 1 week for splint off and short-leg cast. I encouraged him to continue working on strict elevation. He is not able to take ibuprofen due to his kidneys and he is limited on the amount of Tylenol he can take due to having a liver transplant. He will continue with the oxycodone every 4-6 hours p.r.n. pain. Coding Level of Care Code Global (66345) Diagnoses Closed fracture of right ankle with routine healing, subsequent encounter S82.891D Encounter type: subsequent encounter Fracture healing: with routine healing CPT Codes Splint - CPT: 28050-Pskmt Leg splint application ([id number])
== END 2024-05-08 14:52 | disposition home or self-care (01) ==
PROVIDERS: PCP Nurse Practitioner; Visit Provider Physician Assistant
DX: S82.891D Other fracture of right lower leg, subsequent encounter for closed fracture with routine healing (principal)
CPT/HCPCS: 29515; 99024

== ENCOUNTER → 2024-05-08 14:12 | Outpatient (BNVA) | payer BC, SELFPAY | PROVIDERS: PCP Nurse Practitioner; Visit Provider Physician Assistant | DX: S82.891D Other fracture of right lower leg, subsequent encounter for closed fracture with routine healing (principal) | CPT/HCPCS: 29515 ==

== ENCOUNTER 2024-05-14 11:50 | Outpatient (REF) | payer BC, SELFPAY ==
--- NOTE | ~2024-05-14 | XR_ITS ---
EXAMINATION: XR ANKLE, RIGHT CLINICAL INFORMATION: M25.579 - Pain in unspecified ankle and joints of unspecified foot COMPARISON: 05/02/2024. TECHNIQUE: AP, lateral, and mortise views of the right ankle. FINDINGS: Previously seen bimalleolar fracture has been reduced with ORIF. Lateral plate and screw fixation of the distal fibula. No hardware abnormality or complication. Confucianist of anatomic alignment. Mortise is intact. Talar dome appears normal. Subtalar joints appear normal. Calcaneus is intact. There are moderate dorsal and plantar calcaneal spurs. There are lateral skin michelle. Improved soft tissue swelling is evident. XR/XR ankle RT min 3V IMPRESSION: ORIF of bimalleolar fracture without complication. Confucianist of anatomic alignment. Electronically signed by: Jhonny Sena MD 05/15/2024 10:20 AM TYREE
--- OUTSIDE RECORDS SUMMARY | 2024-05-14 12:25 | XMS_ITS | Clinical Summary ---
Author Organization [facility] 299 [facility] Address [address] [place] [address] Phone Care Team Providers Care Endocrinology Teacher Name Role Phone Emilie Reed MD Primary Care Provider [phone] Allergies Active Allergy Reactions Criticality Noted Date [...] Date Site/Laterality Comments GASTRIC BYPASS 2008 PROCEDURE: [place] GASTRIC RSTCV W/BYP W/SM INT RCNSTJ LIMIT [...] patient's age to complete this topic Insurance [facility] ([facility]) Care Teams Endocrinology Teacher Relationship Specialty Start Date End Date Emilie Reed MD PCP - General Internal Medicine 07/21/21
--- OUTSIDE RECORDS SUMMARY | 2024-05-14 12:25 | XMS_ITS | Clinical Summary ---
Author Organization [facility] Facility Address [address] [place] [address] Care Team Providers Care Apparel Machinery Instructor Name Role Phone Unavailable Primary Care Provider [...] patient's age to complete this topic Insurance [facility]
== END 2024-05-14 11:51 | disposition home or self-care (01) ==
LOC: HO.HOSX 11:50
PROVIDERS: Visit Provider Physician Assistant
DX: M25.571 Pain in right ankle and joints of right foot (principal); S82.891D Other fracture of right lower leg, subsequent encounter for closed fracture with routine healing; X58.XXXD Exposure to other specified factors, subsequent encounter
CPT/HCPCS: 29515; 73610

== ENCOUNTER 2024-05-14 12:42 | Outpatient (AMB) | payer BC, SELFPAY ==
--- NOTE | 2024-05-14 12:53 | A.OFFVIS_ITS ---
Intake Visit Reasons: PO-Rt Ankle ORIF 05/06/24 NE Intake Note: Michael is a 63 year old male who presents today for a post operative ORIF of right lateral malleolus, DOS 05/06/24. Patient reports he is doing well, states a lot of discomfort at the moment. States elevation helps with his pain. He needs a refill on medication however he would like to discuss changing pain medication as current medication is causing an upset stomach. Allergies lactose Allergy (Verified 05/14/24 12:59) Abdominal Pain latex Allergy (Verified 05/14/24 12:59) Rash HPI HPI PO-Rt Ankle ORIF 05/06/24 NE: Details: Mr. Goodrich is a 63-year-old male who presents to the office today for skin check status post right ankle ORIF that was performed on 05/06/[address] Caputo. Overall the patient is doing very well. He has been nonweightbearing. The splint is clean dry and intact. He does report that he has been taking the oxycodone but it is a little strong for him and he is wondering if there is anything additional that he can take instead it is not quite as strong. [facility] Medical History (Updated 05/08/24 @ 14:38 by Ramiro Rahman PA-C) Chronic nausea Diverticulitis Hx of cirrhosis HTN (hypertension) Chronic kidney disease Surgical History History of ankle surgery Hx of hand surgery Hx of colonoscopy Hx of gastric bypass Hx of bilateral inguinal hernia repair Hx of cholecystectomy Hx of liver transplant Social History Comment: medicated in PACU Patient Tobacco Use Status: Never used Tobacco Review of Systems Const All systems reviewed & are unremarkable except as noted in HPI and below Physical Exam Const General: cooperative, healthy appearing and no acute distress Resp Effort & Inspection: normal respiratory effort and able to speak in complete sentences Cardio Rate: regular rate Peripheral pulses: Peripheral pulses 2+ throughout Skin Lesions: no lesions Rashes: no rashes Extrem Other: Right ankle incision site clean dry intact. Ranjith intact. Pedal pulse intact. Sensation intact. Office Procedures Casting/Splints [id number] Leg splint application Procedure code (CPT) selection complete Assessment & Plan Assessment & Plan (1) Closed right ankle fracture: Code(s): S82.891A - Other fracture of right lower leg, initial encounter for closed fracture Category: Medical Qualifiers: Encounter type: subsequent encounter Fracture healing: with routine healing Qualified Code(s): S82.891D - Other fracture of right lower leg, subsequent encounter for closed fracture with routine healing Plan Ms. Reed is an 89-year-old female who presents to the office today accompanied by her daughter status post right hip IM nail performed on 04/06/[address] Caputo. Patient is currently at [facility]. The daughter reports that the patient has been struggling to get out of bed and work with physical therapy due to pain in the right hip. The patient also sustained a small abrasion to the medial aspect of the right ankle from her wheelchair. The facility has been performing daily dressing changes and has a wound care physician coming in once a week. Patient does have a past medical history significant for diabetes. While in the office today, the patient's incision site is intact. There is no surrounding erythema or drainage. No signs of infection. He was placed into a posterior short-leg splint that is custom molded. We did discuss trying tramadol for pain management as oxycodone is too strong for the patient. I have sent a prescription to the pharmacy for him. He will discontinue the oxycodone at this time. He will follow up in 1 week with anticipation of staple removal, sooner if needed. X-rays of the right ankle which were obtained while in the office today and were reviewed by me, Rosanna Allan PA-C, revealed intact orthopedic hardware with routine healing. Orders: Orders XR ankle RT min 3V Today M25.579 - Pain in unspecified ankle and joints of unspecified foot Medications: New tramadol 50 mg PO Q8H 7 days PRN 21 tabs 0RF pain Coding Level of Care Code Global (21646) Diagnoses Closed fracture of right ankle with routine healing, subsequent encounter S82.891D Encounter type: subsequent encounter Fracture healing: with routine healing CPT Codes Splint - CPT: 67708-Eymdv Leg splint application ([id number])
--- OUTSIDE RECORDS SUMMARY | 2024-05-14 13:00 | XMS_ITS | Clinical Summary ---
Author Organization [facility] Facility Address [address] [place] [address] Care Team Providers Care Meat Grader Name Role Phone Unavailable Primary Care Provider [...] patient's age to complete this topic Insurance [facility]
--- OUTSIDE RECORDS SUMMARY | 2024-05-14 13:00 | XMS_ITS | Clinical Summary ---
Author Organization [facility] 299 [facility] Address [address] [place] [address] Phone Care Team Providers Care Scrap Charger Name Role Phone Emilie Reed MD Primary Care Provider [phone] Allergies Active Allergy Reactions Criticality Noted Date [...] Date Site/Laterality Comments GASTRIC BYPASS 2008 PROCEDURE: [place] GASTRIC RSTCV W/BYP W/SM INT RCNSTJ LIMIT [...] patient's age to complete this topic Insurance [facility] ([facility]) Care Teams Scrap Charger Relationship Specialty Start Date End Date Emilie Reed MD PCP - General Internal Medicine 07/21/21
== END 2024-05-14 13:39 | disposition home or self-care (01) ==
PROVIDERS: PCP Nurse Practitioner; Visit Provider Physician Assistant
DX: S82.891D Other fracture of right lower leg, subsequent encounter for closed fracture with routine healing (principal)
CPT/HCPCS: 29515; 99024

== ENCOUNTER → 2024-05-14 12:46 | Outpatient (BNV) | payer BC, SELFPAY | PROVIDERS: Visit Provider Radiology Diagnostic Radiology | DX: M25.571 Pain in right ankle and joints of right foot (principal); S82.891D Other fracture of right lower leg, subsequent encounter for closed fracture with routine healing | CPT/HCPCS: 73610 ==

== ENCOUNTER 2024-05-21 10:01 | Outpatient (AMB) | payer BC, SELFPAY ==
--- NOTE | 2024-05-21 10:12 | A.OFFVIS_ITS ---
Intake Visit Reasons: PO-Rt Ankle ORIF 05/06/24 NE Intake Note: Michael is a 63 year old male who presents today for a post operative visit s/p ORIF of right lateral malleolus, DOS 05/06/24. Patient reports his current pain level is a 9 out of 10. Allergies lactose Allergy (Verified 05/14/24 12:59) Abdominal Pain latex Allergy (Verified 05/14/24 12:59) Rash HPI HPI PO-Rt Ankle ORIF 05/06/24 NE: Details: 63-year-old gentleman who returns to the office today 2 weeks status post ORIF right ankle with Dr. Caputo on 05/06/2024. Doing well however he does notice some numbness along the big toe and the 2nd toe. [facility] Medical History (Updated 05/08/24 @ 14:38 by Ramiro Rahman PA-C) Chronic nausea Diverticulitis Hx of cirrhosis HTN (hypertension) Chronic kidney disease Surgical History History of ankle surgery Hx of hand surgery Hx of colonoscopy Hx of gastric bypass Hx of bilateral inguinal hernia repair Hx of cholecystectomy Hx of liver transplant Social History Comment: medicated in PACU Patient Tobacco Use Status: Never used Tobacco Review of Systems Const All systems reviewed & are unremarkable except as noted in HPI and below Physical Exam Const General: cooperative, healthy appearing and no acute distress Resp Effort & Inspection: normal respiratory effort and able to speak in complete sentences Cardio Rate: regular rate Peripheral pulses: Peripheral pulses 2+ throughout Skin Lesions: no lesions Rashes: no rashes Extrem Other: Right ankle incision site clean dry intact. [place] intact. Pedal pulse intact. Sensation intact. Office Procedures Casting/Splints [id number] Leg Cast Application Procedure code (CPT) selection complete Assessment & Plan Assessment & Plan (1) Closed right ankle fracture: Code(s): S82.891A - Other fracture of right lower leg, initial encounter for closed fracture Category: Medical Qualifiers: Encounter type: subsequent encounter Fracture healing: with routine healing Qualified Code(s): S82.891D - Other fracture of right lower leg, subsequent encounter for closed fracture with routine healing Plan: Ranjith removed today Steri-Strips applied. He was placed in a short-leg cast today nonweightbearing. He will continue to work on elevation to help with circulation. He states that tramadol was least effective with his pain management but the oxycodone was too much. I did offer Vicodin to help with his discomfort which she is content with. He will see us back in 4 weeks with cast off and new x-rays, sooner if needed. Coding Level of Care Code Global (80733) Diagnoses Closed fracture of right ankle with routine healing, subsequent encounter S82.891D Encounter type: subsequent encounter Fracture healing: with routine healing CPT Codes Casting - CPT: 22770-Scpxv Leg Cast Application ([id number])
--- OUTSIDE RECORDS SUMMARY | 2024-05-21 12:01 | XMS_ITS | Clinical Summary ---
Author Organization [facility] Facility Address [address] [place] [address] Care Team Providers Care Mobile Home Installer Name Role Phone Unavailable Primary Care Provider [...] patient's age to complete this topic Insurance [facility]
--- OUTSIDE RECORDS SUMMARY | 2024-05-21 12:01 | XMS_ITS | Clinical Summary ---
Author Organization [facility] 299 [facility] Address [address] [place] [address] Phone Care Team Providers Care Forest Fire Specialist Supervisor Name Role Phone Emilie Reed MD Primary Care Provider [phone] Allergies Active Allergy Reactions Criticality Noted Date [...] patient's age to complete this topic Insurance [facility] ([facility]) Care Teams Forest Fire Specialist Supervisor Relationship Specialty Start Date End Date Emilie Reed MD PCP - General Internal Medicine 07/21/21
== END 2024-05-21 11:07 | disposition home or self-care (01) ==
PROVIDERS: PCP Nurse Practitioner; Visit Provider Physician Assistant
DX: S82.891D Other fracture of right lower leg, subsequent encounter for closed fracture with routine healing (principal)
CPT/HCPCS: 29405; 99024

== ENCOUNTER → 2024-05-21 10:01 | Outpatient (BNVA) | payer BC, SELFPAY | PROVIDERS: PCP Nurse Practitioner; Visit Provider Physician Assistant | DX: S82.891D Other fracture of right lower leg, subsequent encounter for closed fracture with routine healing (principal) | CPT/HCPCS: 29405 ==

== ENCOUNTER 2024-06-19 09:19 | Outpatient (REF) | payer BC, SELFPAY ==
--- NOTE | ~2024-06-19 | XR_ITS ---
EXAMINATION: XR ANKLE 3 OR MORE VIEWS RIGHT HISTORY: M25.571 - Pain in right ankle and joints of right foot COMPARISON: Comparison is made with the prior examination dated 05/14/2024. FINDINGS: Three views of the right ankle are submitted. Osseous mineralization is normal. The patient is again noted to be status post internal fixation of a fracture of the distal fibula with a sideplate and multiple orthopedic screws. The fracture line is not well visualized, consistent with healing. Multiple well-corticated osseous densities adjacent to the tip of the medial malleolus are likely the result of old trauma. There is a small plantar calcaneal spur. The joint spaces are preserved. There are vascular calcifications. XR/XR ankle RT min 3V IMPRESSION: Healing internally fixed fracture of the distal fibula. Electronically signed by: Ken Alaniz MD 06/20/2024 08:08 AM EDT
== END 2024-06-19 09:20 | disposition home or self-care (01) ==
LOC: HO.HOSX 09:19
PROVIDERS: Visit Provider Physician Assistant
DX: S82.891D Other fracture of right lower leg, subsequent encounter for closed fracture with routine healing (principal)
CPT/HCPCS: 73610

== ENCOUNTER → 2024-06-19 12:12 | Outpatient (BNV) | payer BC, SELFPAY | PROVIDERS: Visit Provider Radiology Diagnostic Radiology | DX: M25.571 Pain in right ankle and joints of right foot (principal) | CPT/HCPCS: 73610 ==

== ENCOUNTER 2024-06-19 12:31 | Outpatient (AMB) | payer BC, SELFPAY ==
--- NOTE | 2024-06-19 12:50 | A.OFFVIS_ITS ---
Intake Visit Reasons: PO-Rt Ankle ORIF 05/06/24 NE, cast off Intake Note: Michael is a 63 year old male who presents today with his son Ankush for a post operative appointment about 6 weeks s/p Right Ankle ORIF 05/06/24. Patient has had difficulty with pain management, Oxycodone was too strong and causing stomach upset, but Tramadol was not providing enough relief so he was given Vicodin. He reports that his pain is completely under control and he thinks there may be a bit of atrophy that he is not currently worried about. Feeder Worker Power Unit Operator: Feeder Worker Power Unit Operator Present Accompanied by: Son Allergies lactose Allergy (Verified 06/19/24 12:52) Abdominal Pain latex Allergy (Verified 06/19/24 12:52) Rash Medication List - Last Reconciled 06/19/24 by Laura Whitfield RN aspirin 1 tab PO DAILY carvedilol 3.125 mg PO BID furosemide 20 mg PO DAILY hydrocodone-acetaminophen 5-325 mg 1 tab PO Q6H PRN 7 days multivitamin with folic acid 400 mcg (Daily-Ian (with folic acid)) 1 tab PO DAILY oxycodone 5 mg PO Q4H PRN 7 days pantoprazole 40 mg PO DAILY tacrolimus 3 mg BID tamsulosin 0.4 mg PO DAILY tramadol 50 mg PO Q8H PRN 7 days trazodone 50 mg PO BEDTIME [Vitamin D3 PO DAILY] HPI HPI PO-Rt Ankle ORIF 05/06/24 NE, cast off: Details: 63-year-old male returns to the office today status post ORIF right ankle 05/06/[address] Caputo. The patient reports that the bone itself is not painful, but he notices muscle atrophy in the Achilles due to nonuse. His trial without crutches has not resulted in pain, but strength is lacking. [facility] Medical History (Updated 05/08/24 @ 14:38 by Ramiro Rahman PA-C) Chronic nausea Diverticulitis Hx of cirrhosis HTN (hypertension) Chronic kidney disease Surgical History History of ankle surgery Hx of hand surgery Hx of colonoscopy Hx of gastric bypass Hx of bilateral inguinal hernia repair Hx of cholecystectomy Hx of liver transplant Social History Comment: medicated in PACU Patient Tobacco Use Status: Never used Tobacco Review of Systems Const All systems reviewed & are unremarkable except as noted in HPI and below Physical Exam Const General: cooperative, healthy appearing and no acute distress Resp Effort & Inspection: normal respiratory effort and able to speak in complete sentences Cardio Rate: regular rate Peripheral pulses: Peripheral pulses 2+ throughout Skin Lesions: no lesions Rashes: no rashes Extrem Other: Right ankle incision site clean dry intact. Pedal pulse intact. Sensation intact. Results Reviewed Results Reviewed: X-rays of the right ankle obtained in the office today and reviewed by me show well-aligned fracture with intact orthopedic hardware. Ankle mortise intact. Assessment & Plan Assessment & Plan (1) Closed right ankle fracture: Code(s): S82.891A - Other fracture of right lower leg, initial encounter for closed fracture Category: Medical Qualifiers: Encounter type: subsequent encounter Fracture healing: with routine healing Qualified Code(s): S82.891D - Other fracture of right lower leg, subsequent encounter for closed fracture with routine healing Plan: I have discussed the transition from the cast to the boot with the patient, emphasizing the importance of an organized weight-bearing schedule to promote h ealing without compromising the internal fixation stability. He was fit for a boot in office today. We reviewed the risks associated with premature stress on the joint considering his existing osteoarthritis. The patient is informed of the significance of muscle re-strengthening and maintaining flexibility through physical therapy. I explained that the boot should be used at all times when ambulatory, except during rest, showering, and therapeutic exercises to ensure optimal recovery. We also covered the prohibition of driving with the boot and the anticipated rehabilitation timeline. The patient understands these recommendations and agrees with the outlined plan. Orders: Orders XR ankle RT min 3V Today M25.571 - Pain in right ankle and joints of right foot Coding Level of Care Code Global (82224) Diagnoses Closed fracture of right ankle with routine healing, subsequent encounter S82.891D Encounter type: subsequent encounter Fracture healing: with routine healing
--- OUTSIDE RECORDS SUMMARY | 2024-06-19 15:40 | XMS_ITS | Clinical Summary ---
Author Organization [facility] 299 [facility] Address [address] [place] [address] Phone Care Team Providers Care Landscape Horticulture Instructor Name Role Phone Emilie Reed MD Primary Care Provider [phone] Allergies Active Allergy Reactions Criticality Noted Date [...] syndrome) Thrombocytopenia (CMS/HCC) DX:Th rombocytopenia (HCC) Pancytopenia DX:Pancytopenia (HCC) Cough DX:Cough BPH (benign prostatic hyperplasia) [...] patient's age to complete this topic Insurance [facility] (AN[facility]) Care Teams Landscape Horticulture Instructor Relationship Specialty Start Date End Date Emilie Reed MD PCP - General Internal Medicine 07/21/21
--- OUTSIDE RECORDS SUMMARY | 2024-06-19 15:40 | XMS_ITS | Clinical Summary ---
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
== END 2024-06-19 13:06 | disposition home or self-care (01) ==
LOC: HO.HOS 12:31
PROVIDERS: PCP Nurse Practitioner; Visit Provider Physician Assistant
DX: S82.891D Other fracture of right lower leg, subsequent encounter for closed fracture with routine healing (principal)
CPT/HCPCS: 99024

== ENCOUNTER 2024-08-11 08:55 | Outpatient (REF) | payer BC, SELFPAY ==
--- NOTE | ~2024-08-11 | XR_ITS ---
EXAMINATION: XR ANKLE 3 OR MORE VIEWS RIGHT HISTORY: M25.571 - Pain in right ankle and joints of right foot COMPARISON: Comparison is made with the prior examination dated 06/19/2024. FINDINGS: Three views of the right ankle are submitted. Osseous mineralization is normal. Again seen is internal fixation of the distal fibula with a sideplate and multiple orthopedic screws. The fracture line is not well visualized. Multiple well-corticated osseous densities adjacent to the tip of the medial malleolus are unchanged and are likely the result of old trauma. The joint spaces are preserved again seen are calcaneal spurs at the plantar aspect and at the insertion of the Achilles tendon. There are vascular calcifications. XR/XR ankle RT min 3V IMPRESSION: Internally fixed fracture of the distal fibula. Electronically signed by: Ken Alaniz MD 08/11/2024 02:05 PM EDT
--- OUTSIDE RECORDS SUMMARY | 2024-08-13 10:11 | XMS_ITS | Clinical Summary ---
Author Organization [facility] 299 [facility] Address [address] [place] [address] Phone Care Team Providers Care Company Driver Name Role Phone Emilie Reed MD Primary Care Provider [phone] Allergies Active Allergy Reactions Criticality Noted Date [...] Problem Noted Date Diagnosed Date Alcoholic cirrhosis ([facility] V24, [facility] V28) 1 04/05/2023 Diarrhea 02/04/2024 HTN (hypertension) 08/29/2021 Orthostatic hypotension 08/29/2021 Syncope 08/29/2021 Surgical History Surgery Date Site/Laterality Comments GASTRIC BYPASS 2008 PROCEDURE: [place] GASTRIC RSTCV W/BYP W/SM INT RCNSTJ LIMIT [...] us Major depressive disorder in partial remission ([facility] V24) DX:Major depressive disorder in partial remission (HCC) Obesity DX:Obesity Osteoarthritis DX:Osteoarthriti s; COMMENT: hips RLS (restless legs syndrome) DX: RLS (restless legs syndrome) Thrombocytopenia ([facility] V24) D X:Thrombocytopenia (HCC) Pancytopenia ([facility] V24, [facility] V28) DX:Pancytopenia (HCC) Cough DX:Cough BPH (benign [...] patient's age to complete this topic Insurance [facility] (ANTH) Care Teams Company Driver Relationship Specialty Start Date End Date Emilie Reed MD PCP - General Internal Medicine 07/21/21
--- OUTSIDE RECORDS SUMMARY | 2024-08-13 10:11 | XMS_ITS | Clinical Summary ---
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
== END 2024-08-11 08:56 | disposition home or self-care (01) ==
LOC: HO.HOSX 08:55
PROVIDERS: Visit Provider Physician Assistant
DX: M25.571 Pain in right ankle and joints of right foot (principal)
CPT/HCPCS: 73610

== ENCOUNTER 2024-08-11 13:43 | Outpatient (AMB) | payer BC, SELFPAY ==
--- OUTSIDE RECORDS SUMMARY | 2024-08-11 13:46 | XMS_ITS | Clinical Summary ---
Author Organization [facility] 299 [facility] Address [address] [place] [address] Phone Care Team Providers Care Manager Home Name Role Phone Emilie Reed MD Primary Care Provider [phone] Allergies Active Allergy Reactions Criticality Noted Date [...] Problem Noted Date Diagnosed Date Alcoholic cirrhosis ([facility] V24, [facility] V28) 1 04/05/2023 Diarrhea 02/04/2024 HTN (hypertension) 08/29/2021 Orthostatic hypotension 08/29/2021 Syncope 08/29/2021 Surgical History Surgery Date Site/Laterality Comments GASTRIC BYPASS 2008 PROCEDURE: [place] GASTRIC RSTCV W/BYP W/SM INT RCNSTJ LIMIT [...] us Major depressive disorder in partial remission ([facility] V24) DX:Major depressive disorder in partial remission (HCC) Obesity DX:Obesity Osteoarthritis DX:Osteoarthriti s; COMMENT: hips RLS (restless legs syndrome) DX: RLS (restless legs syndrome) Thrombocytopenia ([facility] V24) D X:Thrombocytopenia (HCC) Pancytopenia ([facility] V24, [facility] V28) DX:Pancytopenia (HCC) Cough DX:Cough BPH (benign prostatic [...] Annual BMP Blood Test 03/09/2022 RSV Immunization Adult Patie nts (1 - Risk 60-74 years 1-dose series) 2022 Influenza Vaccine (Season Ended) 2024 HIB Vaccines Aged Out No longer eligi [...] age to complete this topic Meningococcal B Vaccine Aged Out No l onger eligible based on patient's age to complete this topic RSV Immunization Patients Un izabela 20 months Aged Out No longer eligible b ased on patient's age to complete this topic Varicella Vaccines Aged Out No longer eligible based on patient's age to complete this topic Insurance [facility] ([facility]) Care Teams Manager Home Relationship Specialty Start Date End Date Emilie Reed MD PCP - General Internal Medicine 07/21/21
--- NOTE | 2024-08-11 13:56 | A.OFFVIS_ITS ---
Vital Signs 08/11/24 13:58 Height 5 ft 11 in Weight 173 lb BMI 24.1 Intake Visit Reasons: OV- RT ankle ORIF 05/06/24 NE w xray Intake Note: Michael is a 63 year old male who presents today for a post operative appointment status post right ankle ORIF on 05/06/[address] Caputo. At patient last visit he was transitioned from a short leg cast to a walking boot. Today patient reports he only wore the boot for 3 days because he kept tripping on it. Patient states he felt it was more of a safety concern for him. Patient shares he is doing well. No concerns today. Allergies lactose Allergy (Verified 08/11/24 13:58) Abdominal Pain latex Allergy (Verified 08/11/24 13:58) Rash Medication List - Last Reconciled 08/11/24 by Ramiro Rahman PA-C aspirin 1 tab PO DAILY carvedilol 3.125 mg PO BID furosemide 20 mg PO DAILY multivitamin with folic acid 400 mcg (Daily-Ian (with folic acid)) 1 tab PO DAILY pantoprazole 40 mg PO DAILY tacrolimus 3 mg BID tamsulosin 0.4 mg PO DAILY tramadol 50 mg PO Q8H PRN 7 days trazodone 50 mg PO BEDTIME [Vitamin D3 PO DAILY] HPI HPI OV- RT ankle ORIF 05/06/24 NE w xray: Details: 63-year-old gentleman returns to the office today 3 months status post right ankle ORIF with Dr. Caputo on 05/06/2024. He has completed the 1st phase of physical therapy and is going to progress to strengthening and proprioceptive training. He states he has been increasing his activities without discomfort or limitations. [facility] Medical History (Updated 05/08/24 @ 14:38 by Ramiro Rahman PA-C) Chronic nausea Diverticulitis Hx of cirrhosis HTN (hypertension) Chronic kidney disease Surgical History History of ankle surgery Hx of hand surgery Hx of colonoscopy Hx of gastric bypass Hx of bilateral inguinal hernia repair Hx of cholecystectomy Hx of liver transplant Social History Comment: medicated in PACU Patient Tobacco Use Status: Never used Tobacco Review of Systems Const All systems reviewed & are unremarkable except as noted in HPI and below Physical Exam Vital Signs: BMI result Body Mass Index 24.1 Const General: cooperative, healthy appearing and no acute distress Resp Effort & Inspection: normal respiratory effort and able to speak in complete sentences Cardio Rate: regular rate Peripheral pulses: Peripheral pulses 2+ throughout Skin Lesions: no lesions Rashes: no rashes Extrem Other: Right ankle incision site well healed. No notable swelling. Full range of motion without pain. Pedal pulse intact. Sensation intact. Results Reviewed Results Reviewed: X-rays of the right ankle obtained in the office today and reviewed by me show well-aligned fracture with intact orthopedic hardware. Ankle mortise intact. Assessment & Plan Assessment & Plan (1) Closed right ankle fracture: Code(s): S82.891A - Other fracture of right lower leg, initial encounter for closed fracture Category: Medical Qualifiers: Encounter type: subsequent encounter Fracture healing: with routine healing Qualified Code(s): S82.891D - Other fracture of right lower leg, subsequent encounter for closed fracture with routine healing Plan: He will continue to increase activities as tolerated. I did offer him a lace-up ankle brace which he declined at this time stating he feels comfortable with regular street shoes and no ankle support. He will continue to work with therapy and if there is any concerns or questions going forward he will contact our office otherwise follow up as needed. Orders: Orders XR ankle RT min 3V Today M25.571 - Pain in right ankle and joints of right foot Coding Level of Care Code Est Pt Level 3 (80255) Complex EM visit Add On G2211 Diagnoses Closed fracture of right ankle with routine healing, subsequent encounter S82.891D Encounter type: subsequent encounter Fracture healing: with routine healing
[2024-08-11 13:58] VITALS: BMI 24.1
== END 2024-08-11 14:12 | disposition home or self-care (01) ==
LOC: HO.HOS 13:44
PROVIDERS: Visit Provider Physician Assistant
DX: S82.891D Other fracture of right lower leg, subsequent encounter for closed fracture with routine healing (principal)
CPT/HCPCS: 99213

== ENCOUNTER → 2024-08-11 13:46 | Outpatient (BNV) | payer BC, SELFPAY | PROVIDERS: Visit Provider Radiology Diagnostic Radiology | DX: M25.571 Pain in right ankle and joints of right foot (principal) | CPT/HCPCS: 73610 ==

== ENCOUNTER 2024-09-04 14:00 | Outpatient (RCR) | payer BC, SELFPAY ==
--- NOTE | 2024-07-08 13:55 | MHC.PT.EP ---
[facility] [place] Office [place] Office [place] Office [address] [phone] F: [phone] F: [phone] F: [phone] F: [phone] Physical Therapy Plan of Care Date of Evaluation: 07/08/24 Date of Surgery: 05/06/2024 Diagnosis: closed R ankle fx ORIF 05/06/2024 Assessment: Patient is a 63 year old male presenting to PT s/p R ankle ORIF 05/06/2024. He presents today with impairments in pain, ankle ROM, ankle strength, gait mechanics. Pt's current occupation is retired, with baseline physical activities including ambulating, stair negotiation, ADLs. Pt expresses fdc goal of returning to PLOF, and is motivated to work towards this in PT. Clinical presentation today is most consistent with signs and sx associated with s/p R ankle ORIF 05/06/2024 and pt will benefit from skilled PT 2 week x 5 weeks to address the following problems and impairments noted upon evaluation: pain, ankle ROM, ankle strength, gait mechanics. These problems limit the patient with the following functional activities: ambulating, stair negotiation, ADLs. The prescribed treatment plan of care is medically necessary. Co-morbidities of none were identified and taken into considerations of plan of care. Pt was educated on HEP, role of PT, prognosis, POC. Frequency and Duration: The patient will be seen 2 x week x 5 weeks Short Term Goals: Pt will demonstrate improved R ankle ROM by 10 degrees in all directions in 3 weeks. Pt will demonstrate ankle MMT strength at least 4-/5 in 3 weeks. Fdc Goals: Pt will demonstrate improved LEFI score by 9 points in 4 weeks for improved functional mobility. Pt will demonstrate ability to ambulate with normal mechanics in 5 weeks for return to PLOF. Pt will demonstrate ability to negotiate stairs with min to no pain in 5 weeks for improved access to his home. Treatment Plan: Modalities to reduce pain, spasms and effusion. Manual therapy to restore motion and function. Therapeutic exercise to improve strength and flexibility. Neuromuscular re-education for posture and balance. Therapeutic activities to return to functional activities of daily living. Electronically signed by: Neha Rojas, PT, DPT, ATC Please sign and return to therapist. Thank you for your referral.
--- NOTE | 2024-09-08 07:51 | MHC.PT.DC ---
[facility] [place] Office [place] Office [place] Office [address] [phone] F: [phone] F: [phone] F: [phone] F: [phone] Physical Therapy Discharge Report Diagnosis: closed R ankle fx ORIF 05/06/2024 Date of Surgery: 05/06/2024 Date of Evaluation: 07/08/24 Date of Discharge: 09/08/24 Treatments to Date: 18 Cancellations to Date: 0 No Shows to Date: 0 Discharge Status: Improved Function Independent with HEP Discharge Summary: Pt attended last visit with PRESCHOOL PROGRAM DIRECTOR. Pt had been doing very well and plan was to d/c. Electronically signed by: Neha Rojas, PT, DPT, ATC Please sign and return to therapist. Thank you for your referral.
== END 2024-09-08 07:51 | disposition home or self-care (01) ==
LOC: HO.PTCHIC 14:00
PROVIDERS: Visit Provider Physician Assistant
DX: S82.891D Other fracture of right lower leg, subsequent encounter for closed fracture with routine healing (principal); Z98.890 Other specified postprocedural states
CPT/HCPCS: 97110; 97112; 97140; 97161; 97530

== ENCOUNTER → 2024-12-12 08:14 | Outpatient (REF) | payer BC, SELFPAY ==
--- NOTE | 2024-12-12 08:17 | CA_ITS ---
Acquisition Time: 2024-12-12 08:47:17 Total Exercise Time: 00:08:00 Test Indications: Medications: Protocol: NADIYA Max HR: 255 BPM 161% of Pred: 158 BPM Max BP: 180/80 mmHG Max Work Load: 10.1 METS Exercise stress test with exercise 8 mins of Nadiya Protocol, acheiving 91% MPHR, with reports of SOB, no chest pain, with isolated PACs, with normotensive response to exercise. Without any EKG changes meeting criteria for ischemia. In recovery, pt's breathing returned to baseline. Nuclear images pending. Test reviwed with Dr. Morataya. Referred By: Rudolph Moreno Electronically Signed By: Kapil Orona
--- OUTSIDE RECORDS SUMMARY | 2024-12-12 08:40 | XMS_ITS | Clinical Summary ---
Author Organization [facility] 299 [facility] Address [address] [place] [address] Phone Care Team Providers Care Family Support Worker Name Role Phone Emilie Reed MD Primary Care Provider [phone] Allergies Active Allergy Reactions Criticality Noted Date [...] Problem Noted Date Diagnosed Date Alcoholic cirrhosis ([facility] V24, [facility] V28) 1 04/05/2023 Diarrhea 02/04/2024 HTN (hypertension) 08/29/2021 Orthostatic hypotension 08/29/2021 Syncope 08/29/2021 Encounters Date Type Department Care Team Description 12/04/2024 Telephone Gastroenterology - [address] [place] [address] Bharath Napier MD from Last 3 Months Surgical History Surgery Date Site/Laterality Comments GASTRIC BYPASS 2008 PROCEDURE: [place] GASTRIC RSTCV W/BYP W/SM INT RCNSTJ LIMIT [...] us Major depressive disorder in partial remission ([facility] V24) DX:Major depressive disorder in partial remission ([facility]) Obesity DX:Obesity Osteoarthritis DX:Osteoarthriti s; COMMENT: hips RLS (restless legs syndrome) DX: RLS (restless legs syndrome) Thrombocytopenia ([facility] V24) D X:Thrombocytopenia (HCC) Pancytopenia ([facility] V24, [facility] V28) DX:Pancytopenia (HCC) Cough DX:Cough BPH (benign [...] ars (1 of 2 - PCV) 1981 Zoster Vaccines (1 of 2) 1981 Cholesterol Screening (Lipid Panel) 02/21/2022 HIV Screening 02/21/2022 Hepatitis C Screening 02/21/2022 Social Influencers of Health Screening 02/21/2022 Hypertension/CHF/CAD Annual BMP Blood Test 03/09/2022 RSV Immunization Adult Patie nts (1 - Risk 60-74 years 1-dose series) 2022 Depression Screening 03/26/2024 Influenza Vaccine (#1) 2024 Colorectal Cancer Screening: Colonoscopy 06/26/2032 06/26/2022 HIB Vaccines Aged Out No longer eligi [...] on patient's age to complete this topic Procedures Procedure Name Priority Date/Time Associated Diagnosis Comments COLONOSCOPY Routine 06/26/2022 11:21 AM EDT from Last 3 Months or Most Recently Relevant to Health Maintenance Results * COLONOSCOPY (06/26/2022 11:21 AM EDT) Anatomical Region Laterality Modality Endoscopy Jd Valdez MD GI~PROCEDURE ORDERABLES Final R esult from Last 3 Months or Most Recently Relevant to Health Maintenance Insurance [facility] [place] (ANTH) Care Teams Family Support Worker Relationship Specialty Start Date End Date Emilie Reed MD PCP - General Internal Medicine 07/21/21
--- OUTSIDE RECORDS SUMMARY | 2024-12-12 08:40 | XMS_ITS | Clinical Summary ---
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
== END ==
LOC: HO.CARD 08:14
PROVIDERS: Visit Provider Internal Medicine Nephrology
DX: Z01.818 Encounter for other preprocedural examination (principal)
CPT/HCPCS: 78452; 93017; A9500; J0280; J2785

== ENCOUNTER → 2024-12-12 08:17 | Outpatient (BNV) | payer BC, SELFPAY | DX: I49.1 Atrial premature depolarization (principal); R06.02 Shortness of breath | CPT/HCPCS: 78452; 93016; 93018 ==